=== PATIENT | female | born 1960 | race Caucasian/White ===

== ENCOUNTER → 2016-11-11 | Outpatient (CLI) | payer OTHER ==
[2016-11-11 11:51] LABS: ABSOLUTE BASOPHILS # (AUTO) 0.1 10^3/uL (0.0-0.2); ABSOLUTE EOSINOPHILS # (AUTO) 0.2 10^3/uL (0.0-0.6); ABSOLUTE LYMPHOCYTES (AUTO) 1.3 10^3/uL (0.5-4.7); ABSOLUTE MONOCYTES (AUTO) 0.4 10^3/uL (0.1-1.4); ABSOLUTE NEUT (AUTO) 3.6 10^3/uL (1.7-8.2); EOSINOPHILS % (AUTO) 4.1 % (0-6); HEMATOCRIT 38.8 % (36.0-47.0); HEMOGLOBIN 12.9 g/dL (12.0-15.5); HGB HCT DIFFERENCE -0.1; LYMPHOCYTES % (AUTO) 23.5 % (13-45); MEAN CORPUSCULAR HEMOGLOBIN 30.4 pg (27.0-33.4); MEAN CORPUSCULAR HGB CONC 33.2 g/dL (32.0-36.0); MEAN CORPUSCULAR VOLUME 92 fl (80-97); RED BLOOD COUNT 4.24 10^6/uL (3.72-5.28); RED CELL DISTRIBUTION WIDTH 13.7 % (11.5-14.0); SEGMENTED NEUTROPHILS % (AUTO) 64.4 % (42-78); WHITE BLOOD COUNT 5.6 10^3/uL (4.0-10.5)
[2016-11-11 12:15] LABS: ALANINE AMINOTRANSFERASE 54 U/L (9-52); ALBUMIN 3.6 g/dL (3.5-5.0); ALKALINE PHOSPHATASE 223 U/L (38-126); ANION GAP 12 (5-19); ASPARTATE AMINO TRANSFERASE 41 U/L (14-36); BILIRUBIN,TOTAL 1.1 mg/dL (0.2-1.3); BLOOD UREA NITROGEN 19 mg/dL (7-20); CALCIUM 10.1 mg/dL (8.4-10.2); CARBON DIOXIDE 20 mmol/L (22-30); CHLORIDE 103 mmol/L (98-107); CHOLESTEROL 202.38 mg/dL (0-200); CREATININE RESULT 0.93 mg/dL (0.52-1.25); Direct HDL 46 mg/dL (>40); GLUCOSE 345 mg/dL (75-110); POTASSIUM 4.9 mmol/L (3.6-5.0); SODIUM 134.9 mmol/L (137-145); TRIGLYCERIDES 233 mg/dL (<150)
[2016-11-11 12:19] LABS: VLDL CHOLESTEROL 46.6 mg/dL (10-31)
[2016-11-11 12:26] LABS: DIRECT LDL 108 mg/dL (<100)
== END ==
LOC: CCC 10:54
DX: L97.519 Non-pressure chronic ulcer of other part of right foot with unspecified severity (principal); E11.9 Type 2 diabetes mellitus without complications; I10 Essential (primary) hypertension; E03.9 Hypothyroidism, unspecified
CPT/HCPCS: 36415; 80053; 80061; 83036; 84443; 85025

== ENCOUNTER → 2017-01-10 | Outpatient (CLI) | payer OTHER | LOC: OD 15:10 | DX: E11.621 Type 2 diabetes mellitus with foot ulcer (principal) ==

== ENCOUNTER → 2017-04-12 | Outpatient (CLI) | payer OTHER ==
[2017-04-12 12:19] LABS: ABSOLUTE BASOPHILS # (AUTO) 0.1 10^3/uL (0.0-0.2); ABSOLUTE EOSINOPHILS # (AUTO) 0.2 10^3/uL (0.0-0.6); ABSOLUTE LYMPHOCYTES (AUTO) 1.3 10^3/uL (0.5-4.7); ABSOLUTE MONOCYTES (AUTO) 0.4 10^3/uL (0.1-1.4); ABSOLUTE NEUT (AUTO) 4.1 10^3/uL (1.7-8.2); BASOPHILS % (AUTO) 0.8 % (0-2); EOSINOPHILS % (AUTO) 2.9 % (0-6); HEMATOCRIT 38.8 % (36.0-47.0); HEMOGLOBIN 13.3 g/dL (12.0-15.5); HGB HCT DIFFERENCE 1.1; LYMPHOCYTES % (AUTO) 21.7 % (13-45); MEAN CORPUSCULAR HEMOGLOBIN 31.4 pg (27.0-33.4); MEAN CORPUSCULAR HGB CONC 34.3 g/dL (32.0-36.0); MEAN CORPUSCULAR VOLUME 92 fl (80-97); MONOCYTES % (AUTO) 6.2 % (3-13); RED BLOOD COUNT 4.23 10^6/uL (3.72-5.28); RED CELL DISTRIBUTION WIDTH 13.4 % (11.5-14.0); SEGMENTED NEUTROPHILS % (AUTO) 68.4 % (42-78)
[2017-04-12 12:43] LABS: ALANINE AMINOTRANSFERASE 46 U/L (9-52); ALBUMIN 3.6 g/dL (3.5-5.0); ALKALINE PHOSPHATASE 191 U/L (38-126); ANION GAP 14 (5-19); ASPARTATE AMINO TRANSFERASE 36 U/L (14-36); BILIRUBIN,DIRECT 0.5 mg/dL (0.0-0.4); BLOOD UREA NITROGEN 16 mg/dL (7-20); CALCIUM 9.6 mg/dL (8.4-10.2); CARBON DIOXIDE 17 mmol/L (22-30); CHLORIDE 107 mmol/L (98-107); CREATININE RESULT 1.02 mg/dL (0.52-1.25); GLUCOSE 215 mg/dL (75-110); POTASSIUM 4.4 mmol/L (3.6-5.0); SODIUM 138.1 mmol/L (137-145); TOTAL PROTEIN 7.7 g/dL (6.3-8.2)
[2017-04-13 07:28] LABS: HEPATITIS A AB TOTAL Positive (Negative)
== END ==
LOC: CCC 10:46
DX: E03.9 Hypothyroidism, unspecified (principal); E11.9 Type 2 diabetes mellitus without complications; R79.89 Other specified abnormal findings of blood chemistry
CPT/HCPCS: 36415; 80053; 82977; 83036; 84443; 85025; 86317; 86708; 86709; 87340

== ENCOUNTER → 2017-05-03 | Outpatient (CLI) | payer OTHER ==
--- NOTE | 2017-05-03 11:49 | RADIOLOGY REPORT (SQ) ---
EXAM DESCRIPTION: U/S ABDOMEN COMPLETE W/DOPPLER COMPLETED DATE/TIME: 05/03/2017 11:40 am REASON FOR STUDY: ELEVATED LFT'S R94.5 ABNORMAL RESULTS OF LIVER FUNCTION STUDIES COMPARISON: None. TECHNIQUE: Dynamic and static grayscale images acquired of the abdomen and recorded on PACS. Additio nal selected color Doppler and spectral images recorded. LIMITATIONS: None. FINDINGS: PANCREAS: The visualized portion of the pancreas are unremarkable. LIVER: Echotexture is coarse with increased echogenicity consistent with fatty infiltration. LIVER VASCULATURE: Normal directional flow of the main portal vein and hepatic veins. GALLBLADDER: Surgically absent. ULTRASOUND-DETECTED ERICKSON'S SIGN: Negative. INTRAHEPATIC DUCTS AND COMMON DUCT: Common bile duct measures 8.7 mm in diameter. INFERIOR VENA CAVA: Normal flow. AORTA: No aneurysm. RIGHT KIDNEY: Normal size. Normal echogenicity. No solid or suspicious masses. No hydronephrosis. No calcifications. LEFT KIDNEY: Normal size. Normal echogenicity. No solid or suspicious masses. No hydronephrosis. No calcifications. SPLEEN:Normal size. No solid masses. PERITONEAL AND PLEURAL SPACES: No ascites or effusions. OTHER: No other significant finding. IMPRESSION: Fatty infiltrated liver. Prior cholecystectomy. No acute findings. TECHNICAL DOCUMENTATION: JOB ID: [id number]- All Rights Reserved
== END ==
LOC: RAD 10:51
DX: R94.5 Abnormal results of liver function studies (principal)
CPT/HCPCS: 76700; 93976

== ENCOUNTER → 2017-07-25 | Outpatient (CLI) | payer OTHER ==
[2017-07-25 12:23] LABS: ANION GAP 11 (5-19); BLOOD UREA NITROGEN 16 mg/dL (7-20); CALCIUM 9.9 mg/dL (8.4-10.2); CARBON DIOXIDE 22 mmol/L (22-30); CHLORIDE 103 mmol/L (98-107); CREATININE RESULT 1.04 mg/dL (0.52-1.25); GLUCOSE 375 mg/dL (75-110); POTASSIUM 4.8 mmol/L (3.6-5.0); SODIUM 135.6 mmol/L (137-145)
== END ==
LOC: CCC 10:39
DX: E03.9 Hypothyroidism, unspecified (principal); E10.9 Type 1 diabetes mellitus without complications; I10 Essential (primary) hypertension
CPT/HCPCS: 36415; 80048; 84443

== ENCOUNTER 2017-10-12 07:12 | Day surgery (SDC) | payer OTHER ==
[~2017-10-12 07:12] MED LIST: KETOROLAC TROMETHAMINE 0.45% 4 DROP/0.4 ML DROPERETTE OS PRN
[2017-10-12] MEDS ORDERED: TOBRAMYCIN SULFATE/DEXAMETH OPH OINTMENT 3.5 GM ONE (07:28)
[2017-10-12] MEDS ORDERED: LIDOCAINE 1% INJ-PF (10 MG/ML) 30 ML SDV ONE (07:28)
[2017-10-12] MEDS ORDERED: EPINEPHRINE INJ/PF 1 MG/1 ML AMPULE ONE (07:28)
[2017-10-12] MEDS ORDERED: CHONDR SU A NA/HYALUR INTRAOC KIT (SURGICARE) ONE (07:28)
[2017-10-12] MEDS: TROPICAMIDE 1% OPH SOLN 3 ML OS PRN ×3 (07:53→08:14)
[2017-10-12] MEDS: CYCLOPENTOLATE 0.2%/PHENYLEPHRINE 1% OPH SOLN 2 ML OS PRN ×3 (07:53→08:14)
[2017-10-12] MEDS: BESIFLOXACIN HCL 0.6% OPH SUSP 5 ML BOTTLE OS PRN ×3 (07:54→08:53)
[2017-10-12] MEDS: TETRACAINE HCL 0.5% OPH SOLN 0.6 ML DROPERETTE OS PRN ×3 (07:55→08:26)
[2017-10-12] MEDS ORDERED: MIDAZOLAM 2 MG/2 ML INJ ONE (08:07)
[2017-10-12] MEDS ORDERED: TRYPAN BLUE 0.06 % OPH SOLN 0.5 ML DISP.SYRIN ONE (08:29)
== END 2017-10-12 09:27 | disposition home or self-care (01) ==
LOC: SC 07:12
PROVIDERS: ATTEND Ophthalmology
PROC: 08RK3JZ Replacement of Left Lens with Synthetic Substitute, Percutaneous Approach (ICD-10-PCS; principal; 2017-10-12 08:15)
DX: H25.12 Age-related nuclear cataract, left eye (principal); I10 Essential (primary) hypertension; E03.9 Hypothyroidism, unspecified; E11.9 Type 2 diabetes mellitus without complications; E66.9 Obesity, unspecified; E11.40 Type 2 diabetes mellitus with diabetic neuropathy, unspecified; Z79.84 Long term (current) use of oral hypoglycemic drugs; Z68.42 Body mass index [BMI] 45.0-49.9, adult; Z88.5 Allergy status to narcotic agent; Z85.42 Personal history of malignant neoplasm of other parts of uterus
CPT/HCPCS: 82962; 66984; V2632; J2250; J3490 ×4; J0171; 142

== ENCOUNTER → 2018-02-24 | Outpatient (CLI) | payer OTHER ==
[2018-02-24 13:56] LABS: ALANINE AMINOTRANSFERASE 34 U/L (9-52); ALBUMIN 3.6 g/dL (3.5-5.0); ALKALINE PHOSPHATASE 221 U/L (38-126); ANION GAP 13 (5-19); ASPARTATE AMINO TRANSFERASE 44 U/L (14-36); BILIRUBIN,DIRECT 0.7 mg/dL (0.0-0.4); BILIRUBIN,TOTAL 1.1 mg/dL (0.2-1.3); BLOOD UREA NITROGEN 33 mg/dL (7-20); CALCIUM 9.9 mg/dL (8.4-10.2); CARBON DIOXIDE 20 mmol/L (22-30); CHLORIDE 103 mmol/L (98-107); POTASSIUM 5.2 mmol/L (3.6-5.0); TOTAL PROTEIN 7.3 g/dL (6.3-8.2)
[2018-02-24 14:08] LABS: GLUCOSE 406 mg/dL (75-110)
[2018-02-24 14:12] LABS: FREE T3 3.9 pg/mL (2.77-5.27); FREE T4 (FREE THYROXINE) 1.82 ng/dL (0.78-2.19)
[2018-02-24 14:25] LABS: THYROID STIMULATING HORMONE 2.07 uIU/mL (0.47-4.68)
== END ==
LOC: OD 11:40
DX: E03.9 Hypothyroidism, unspecified (principal)
CPT/HCPCS: 36415; 80053; 84439; 84443; 84481

== ENCOUNTER 2018-07-14 00:10 | Inpatient (IN) | payer OTHER ==
[2018-07-14] MEDS ORDERED: NORMAL SALINE 1000 ML 1,000 ML IV ONE ×2 (00:27→03:33)
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
[2018-07-14 00:52] LABS: ABSOLUTE EOSINOPHILS # (AUTO) 0.1 10^3/uL (0.0-0.6); ABSOLUTE LYMPHOCYTES (AUTO) 0.8 10^3/uL (0.5-4.7); ABSOLUTE MONOCYTES (AUTO) 0.6 10^3/uL (0.1-1.4); ABSOLUTE NEUT (AUTO) 6.5 10^3/uL (1.7-8.2); BASOPHILS % (AUTO) 0.4 % (0-2); EOSINOPHILS % (AUTO) 1.2 % (0-6); HEMATOCRIT 37.4 % (36.0-47.0); HEMOGLOBIN 12.6 g/dL (12.0-15.5); LYMPHOCYTES % (AUTO) 9.9 % (13-45); MEAN CORPUSCULAR HEMOGLOBIN 31.7 pg (27.0-33.4); MEAN CORPUSCULAR HGB CONC 33.7 g/dL (32.0-36.0); MEAN CORPUSCULAR VOLUME 94 fl (80-97); MONOCYTES % (AUTO) 7.2 % (3-13); PLATELET COUNT 177 10^3/uL (150-450); RED BLOOD COUNT 3.98 10^6/uL (3.72-5.28); RED CELL DISTRIBUTION WIDTH 15.1 % (11.5-14.0); SEGMENTED NEUTROPHILS % (AUTO) 81.3 % (42-78); TOTAL CELLS COUNTED % (AUTO) 100 %; VENOUS BLOOD BASE EXCESS -10.7 mmol/L; VENOUS BLOOD HCO3 14.9 mmol/L (20-32); VENOUS BLOOD PCO2 32.9 mmHg (35-63); VENOUS BLOOD PH 7.28 (7.30-7.42)
[2018-07-14 01:51] LABS: ANION GAP 14 (5-19); BLOOD UREA NITROGEN 60 mg/dL (7-20); CARBON DIOXIDE 15 mmol/L (22-30); CHLORIDE 100 mmol/L (98-107); POTASSIUM 5.8 mmol/L (3.6-5.0); SODIUM 128.5 mmol/L (137-145)
--- NOTE | 2018-07-14 01:52 | RADIOLOGY REPORT (SQ) ---
PROCEDURE: CT brain without contrast COMPLETED DATE/TME: 07/14/2018 00:27 CLINICAL HISTORY: 58 years Female Fall Injury COMPARISON: None. TECHNIQUE: Contiguous axial CT images obtained through the brain without IV contrast. This exam was performed according to our department optimization program which includes automated exposure control, adjustment of the mA and/or kv according to patient size and/or use of iterative reconstruction technique. FINDINGS: The ventricles and sulci are prominent consistent with atrophic changes. 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 No mass lesions. No acute hemorrhage. Atherosclerotic calcifications. No fluid or significant mucosal thickening in the visualized paranasal sinuses. No depressed calvarial fractures. IMPRESSION: No acute intracranial abnormality is identified.
[2018-07-14 02:03] LABS: GLUCOSE 660 mg/dL (75-110)
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
[2018-07-14] MEDS ORDERED: INSULIN REG, HUMAN 100 UNIT/ML 3 ML VIAL (PYX) IV ONE (02:10)
[2018-07-14 03:29] LABS: APPEARANCE,URINE SLIGHTLY-CLOUDY; BILIRUBIN,URINE NEGATIVE (NEGATIVE); COLOR,URINE YELLOW; GLUCOSE, URINE >=500 mg/dL (NEGATIVE); KETONES,URINE NEGATIVE (NEGATIVE); LEUKOCYTE ESTERASE,URINE NEGATIVE (NEGATIVE); NITRITE,URINE NEGATIVE (NEGATIVE); PROTEIN,URINE 30 mg/dL (NEGATIVE)
[2018-07-14] MEDS ORDERED: GLUCAGON,HUMAN RECOMB 1 MG INJ IM PRN ×2 (04:13→04:22)
[2018-07-14] MEDS ORDERED: PROMETHAZINE HCL INJ 25 MG/1 ML VIAL IV PRN (04:13)
[2018-07-14] MEDS ORDERED: MAG HYDROX/AL HYDROX/SIMETH SUSP 30 ML UDCUP PO PRN (04:13)
[2018-07-14] MEDS ORDERED: DEXTROSE 40% GEL 15 GM TUBE PO PRN ×6 (04:13→04:22)
[2018-07-14] MEDS ORDERED: GLUCAGON,HUMAN RECOMB 1 MG INJ SUBCUT PRN (04:13)
[2018-07-14] MEDS ORDERED: DEXTROSE 50%-WATER 25 GM/50 ML DISP.SYRIN IV PRN ×6 (04:13→04:22)
[2018-07-14] MEDS ORDERED: PROMETHAZINE HCL 25 MG TABLET PO PRN (04:13)
[2018-07-14] MEDS ORDERED: NORMAL SALINE 1000 ML 1,000 ML IV PRN (04:22)
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
[2018-07-14] MEDS ORDERED: INSULIN REG, HUMAN 100 UNIT/ML 3 ML VIAL (PYX) ONE (05:50)
[2018-07-14] MEDS: HEPARIN SOD (PORCINE) 5,000 UNIT/ML 1 ML SYRINGE SUBCUT SCH ×3 (05:59→21:56)
[2018-07-14] MEDS: NORMAL SALINE 1000 ML 1,000 ML IV PRN ×3 (05:59→23:00)
[2018-07-14] MEDS: NORMAL SALINE 100 ML with INSULIN REGULAR, HUMAN 100 UNIT IV PRN ×6 (06:07→23:00)
[2018-07-14 07:02] LABS: ANION GAP 12 (5-19); BLOOD UREA NITROGEN 55 mg/dL (7-20); CALCIUM 8.7 mg/dL (8.4-10.2); CARBON DIOXIDE 14 mmol/L (22-30); CHLORIDE 104 mmol/L (98-107); SODIUM 130.2 mmol/L (137-145)
[2018-07-14 07:19] LABS: GLUCOSE 559 mg/dL (75-110)
--- NOTE | 2018-07-14 10:24 | EKG REPORT ---
SEVERITY:- ABNORMAL ECG - SINUS RHYTHM KHLOE, CONSIDER BIATRIAL ABNORMALITIES BORDERLINE PROLONGED QT INTERVAL : Confirmed by: Kamala Bhatia MD 14-Jul-2018 10:23:32
[2018-07-14 11:36] LABS: ANION GAP 11 (5-19); BLOOD UREA NITROGEN 52 mg/dL (7-20); CALCIUM 8.6 mg/dL (8.4-10.2); CARBON DIOXIDE 14 mmol/L (22-30); CHLORIDE 105 mmol/L (98-107); POTASSIUM 4.6 mmol/L (3.6-5.0); SODIUM 129.9 mmol/L (137-145)
[2018-07-14 11:53] LABS: GLUCOSE 485 mg/dL (75-110)
[2018-07-14 14:14] LABS: ANION GAP 10 (5-19); BLOOD UREA NITROGEN 51 mg/dL (7-20); CALCIUM 8.9 mg/dL (8.4-10.2); CARBON DIOXIDE 16 mmol/L (22-30); CHLORIDE 106 mmol/L (98-107); POTASSIUM 4.7 mmol/L (3.6-5.0); SODIUM 131.8 mmol/L (137-145)
[2018-07-14 14:34] LABS: GLUCOSE 425 mg/dL (75-110)
[2018-07-14 16:01] LABS: APPEARANCE,URINE CLEAR; BILIRUBIN,URINE NEGATIVE (NEGATIVE); COLOR,URINE YELLOW; GLUCOSE, URINE >=500 mg/dL (NEGATIVE); KETONES,URINE NEGATIVE (NEGATIVE); LEUKOCYTE ESTERASE,URINE NEGATIVE (NEGATIVE); NITRITE,URINE NEGATIVE (NEGATIVE); PROTEIN,URINE NEGATIVE (NEGATIVE); URINE SPECIFIC GRAVITY 1.018; UROBILINOGEN,URINE NEGATIVE mg/dL (<2.0)
[2018-07-14 18:24] LABS: ANION GAP 13 (5-19); BLOOD UREA NITROGEN 47 mg/dL (7-20); CALCIUM 9.1 mg/dL (8.4-10.2); CARBON DIOXIDE 14 mmol/L (22-30); CHLORIDE 109 mmol/L (98-107); GLUCOSE 324 mg/dL (75-110); POTASSIUM 4.7 mmol/L (3.6-5.0); SODIUM 135.6 mmol/L (137-145)
[2018-07-14 22:21] LABS: ANION GAP 11 (5-19); BLOOD UREA NITROGEN 47 mg/dL (7-20); CALCIUM 8.7 mg/dL (8.4-10.2); CARBON DIOXIDE 13 mmol/L (22-30); CHLORIDE 111 mmol/L (98-107); GLUCOSE 232 mg/dL (75-110); POTASSIUM 4.2 mmol/L (3.6-5.0); SODIUM 134.6 mmol/L (137-145)
[2018-07-14] MEDS: DEXTROSE 5%-1/2 NORMAL SALINE 1,000 ML IV PRN (23:10)
[2018-07-15] MEDS: NORMAL SALINE 100 ML with INSULIN REGULAR, HUMAN 100 UNIT IV PRN ×6 (05:43→18:58)
[2018-07-15] MEDS: HEPARIN SOD (PORCINE) 5,000 UNIT/ML 1 ML SYRINGE SUBCUT SCH ×3 (05:43→21:18)
[2018-07-15] MEDS: DEXTROSE 5%-1/2 NORMAL SALINE 1,000 ML IV PRN ×2 (07:36→15:07)
[2018-07-15 13:22] LABS: ANION GAP 7 (5-19); BLOOD UREA NITROGEN 42 mg/dL (7-20); CALCIUM 8.9 mg/dL (8.4-10.2); CARBON DIOXIDE 16 mmol/L (22-30); CHLORIDE 112 mmol/L (98-107); GLUCOSE 102 mg/dL (75-110); PHOSPHORUS 2.9 mg/dL (2.5-4.5); POTASSIUM 3.9 mmol/L (3.6-5.0); SODIUM 135.4 mmol/L (137-145)
[2018-07-15] MEDS: ACETAMINOPHEN 325 MG TABLET PO PRN (15:07)
[2018-07-15] MEDS: LEVOTHYROXINE SODIUM 0.1 MG TABLET PO SCH (15:12)
[2018-07-15] MEDS: MEGESTROL ACETATE 20 MG TABLET PO SCH (15:12)
[2018-07-15] MEDS: GABAPENTIN 300 MG CAPSULE PO SCH ×2 (15:12→21:16)
[2018-07-15 17:49] LABS: ANION GAP 10 (5-19); BLOOD UREA NITROGEN 41 mg/dL (7-20); CALCIUM 8.9 mg/dL (8.4-10.2); CARBON DIOXIDE 14 mmol/L (22-30); CHLORIDE 111 mmol/L (98-107); GLUCOSE 163 mg/dL (75-110); POTASSIUM 4.4 mmol/L (3.6-5.0); SODIUM 135.3 mmol/L (137-145)
[2018-07-15 21:13] LABS: ANION GAP 8 (5-19); BLOOD UREA NITROGEN 41 mg/dL (7-20); CALCIUM 8.8 mg/dL (8.4-10.2); CARBON DIOXIDE 15 mmol/L (22-30); CHLORIDE 111 mmol/L (98-107); GLUCOSE 194 mg/dL (75-110); PHOSPHORUS 2.9 mg/dL (2.5-4.5); POTASSIUM 4.2 mmol/L (3.6-5.0); SODIUM 134.4 mmol/L (137-145)
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
[2018-07-16] MEDS: NORMAL SALINE 100 ML with INSULIN REGULAR, HUMAN 100 UNIT IV PRN ×8 (00:26→21:05)
[2018-07-16 01:15] LABS: ANION GAP 9 (5-19); BLOOD UREA NITROGEN 35 mg/dL (7-20); CALCIUM 8.9 mg/dL (8.4-10.2); CARBON DIOXIDE 14 mmol/L (22-30); CHLORIDE 112 mmol/L (98-107); GLUCOSE 145 mg/dL (75-110); PHOSPHORUS 2.6 mg/dL (2.5-4.5); POTASSIUM 4.2 mmol/L (3.6-5.0); SODIUM 134.7 mmol/L (137-145)
[2018-07-16 06:10] LABS: ANION GAP 7 (5-19); BLOOD UREA NITROGEN 35 mg/dL (7-20); CALCIUM 8.8 mg/dL (8.4-10.2); CARBON DIOXIDE 15 mmol/L (22-30); CHLORIDE 113 mmol/L (98-107); GLUCOSE 110 mg/dL (75-110); PHOSPHORUS 2.6 mg/dL (2.5-4.5); SODIUM 134.7 mmol/L (137-145)
[2018-07-16] MEDS: HEPARIN SOD (PORCINE) 5,000 UNIT/ML 1 ML SYRINGE SUBCUT SCH ×3 (06:50→21:55)
[2018-07-16] MEDS: LEVOTHYROXINE SODIUM 0.1 MG TABLET PO SCH (06:50)
[2018-07-16] MEDS: DEXTROSE 5%-1/2 NORMAL SALINE 1,000 ML IV PRN ×2 (07:21→15:05)
[2018-07-16 10:03] LABS: ANION GAP 6 (5-19); BLOOD UREA NITROGEN 32 mg/dL (7-20); CALCIUM 8.7 mg/dL (8.4-10.2); CARBON DIOXIDE 15 mmol/L (22-30); CHLORIDE 115 mmol/L (98-107); GLUCOSE 101 mg/dL (75-110); PHOSPHORUS 2.5 mg/dL (2.5-4.5); POTASSIUM 4.1 mmol/L (3.6-5.0); SODIUM 135.9 mmol/L (137-145)
[2018-07-16] MEDS: MEGESTROL ACETATE 20 MG TABLET PO SCH (10:05)
[2018-07-16] MEDS: GABAPENTIN 300 MG CAPSULE PO SCH ×2 (10:06→21:53)
[2018-07-16 13:16] LABS: ANION GAP 10 (5-19); BLOOD UREA NITROGEN 30 mg/dL (7-20); CARBON DIOXIDE 12 mmol/L (22-30); CHLORIDE 114 mmol/L (98-107); GLUCOSE 125 mg/dL (75-110); PHOSPHORUS 2.5 mg/dL (2.5-4.5); POTASSIUM 4.2 mmol/L (3.6-5.0); SODIUM 135.6 mmol/L (137-145)
[2018-07-16] MEDS ORDERED: TRAMADOL HCL 50 MG TABLET PO PRN (17:13)
[2018-07-16 17:14] LABS: ANION GAP 7 (5-19); BLOOD UREA NITROGEN 28 mg/dL (7-20); CARBON DIOXIDE 15 mmol/L (22-30); CHLORIDE 116 mmol/L (98-107); GLUCOSE 128 mg/dL (75-110); PHOSPHORUS 2.8 mg/dL (2.5-4.5); POTASSIUM 4.5 mmol/L (3.6-5.0); SODIUM 137.5 mmol/L (137-145)
--- NOTE | 2018-07-16 17:43 | PDOC PROGRESS REPORT ---
Subjective Progress Note for:: 07/16/18 Subjective:: Feels okay except for generalized headache. Endorses good appetite. Reports no BM since [facility], 07/13. Reports she was only able to shuffle side-side with walker during PT eval. Complains her finger tips are very sore d/t the frequent AccuCheks. Reason For Visit: f/u DKA Physical Exam Vital Signs: Temp Pulse Resp BP Pulse Ox 98.2 F 77 20 131/72 H 100 07/16/18 16:07 07/16/18 16:07 07/16/18 16:07 07/16/18 16:07 07/16/18 16:07 Intake & Output 07/15/18 07/16/18 07/17/18 06:59 06:59 06:59 Intake Total 2310 3554 1168 Output Total 830 1125 300 Balance 1480 2429 868 Weight 124.9 kg 126.7 kg Additional comments: General appearance: PRESENT: no acute distress, cooperative, morbidly obese Head exam: PRESENT: other - Alopecia Eye exam: ABSENT: conjunctival injection, scleral icterus Neck exam: PRESENT: other - Obese so that JVP is difficult to assess. ABSENT: JVD, tracheal deviation Respiratory exam: PRESENT: clear to auscultation karla. ABSENT: rales, rhonchi, wheezes Cardiovascular exam: PRESENT: RRR. ABSENT: diastolic murmur, rubs, systolic murmur Pulses: PRESENT: normal radial pulses, normal dorsalis pedis pul Vascular exam: PRESENT: normal capillary refill GI/Abdominal exam: PRESENT: normal bowel sounds, soft. ABSENT: distended, guarding, rigid, tenderness Rectal exam: PRESENT: deferred Extremities exam: PRESENT: calf tenderness, other - Significant fatty deposition of the extremities mimics appearance of edema, but is nonpitting. ABSENT: clubbing, pedal edema Musculoskeletal exam: PRESENT: full ROM, normal inspection. ABSENT: tenderness Neurological exam: PRESENT: alert, awake, oriented to person, oriented to place , oriented to time, oriented to situation. ABSENT: motor sensory deficit Psychiatric exam: PRESENT: appropriate affect, normal mood. ABSENT: homicidal ideation, suicidal ideation Skin exam: PRESENT: dry, intact, warm. ABSENT: cyanosis, rash Results Laboratory Results: 07/16/18 16:35 07/15/18 07/15/18 07/16/18 17:16 20:45 00:23 Sodium 135.3 L 134.4 L 134.7 L Potassium 4.4 4.2 4.2 Chloride 111 H 111 H 112 H Carbon Dioxide 14 L 15 L 14 L Anion Gap 10 8 9 BUN 41 H 41 H 35 H Creatinine 1.35 H 1.34 H 1.19 Est GFR ( Amer) 48 L 49 L 56 L Est GFR (Non-Af Amer) 40 L 40 L 46 L Glucose 163 H 194 H 145 H Calcium 8.9 8.8 8.9 Phosphorus 3.0 2.9 2.6 Magnesium 2.0 2.0 1.9 07/16/18 07/16/18 07/16/18 04:47 08:56 12:40 Sodium 134.7 L 135.9 L 135.6 L Potassium 4.0 4.1 4.2 Chloride 113 H 115 H 114 H Carbon Dioxide 15 L 15 L 12 L Anion Gap 7 6 10 BUN 35 H 32 H 30 H Creatinine 1.14 1.04 0.96 Est GFR ( Amer) 59 L > 60 > 60 Est GFR (Non-Af Amer) 49 L 54 L 59 L Glucose 110 101 125 H Calcium 8.8 8.7 9.0 Phosphorus 2.6 2.5 2.5 Magnesium 2.0 2.0 1.9 07/16/18 16:35 Sodium 137.5 Potassium 4.5 Chloride 116 H Carbon Dioxide 15 L Anion Gap 7 BUN 28 H Creatinine 1.08 Est GFR ( Amer) > 60 Est GFR (Non-Af Amer) 52 L Glucose 128 H Calcium 9.0 Phosphorus 2.8 Magnesium 2.0 07/15/18 12:40 Troponin I < 0.012 Impressions: Chest X-Ray 07/14/18 00:27 IMPRESSION: No evidence of acute intrathoracic disease. Head CT 07/14/18 00:27 IMPRESSION: No acute intracranial abnormality is identified. Assessment & Plan - Diagnosis (1) Pseudohyponatremia Is this a current diagnosis for this admission?: Yes Plan: Resolved with resolution of hyperglycemia (2) Hyperkalemia, diminished renal excretion Is this a current diagnosis for this admission?: Yes Plan: Resolved with insulin therapy and IV fluids (3) Non-compliance Is this a current diagnosis for this admission?: Yes Plan: Encourage patient to pursue diabetic education and compliance with diet and diabetic management including monitoring Accu-Cheks and keeping a diary to present to PCP, so meds can be adjusted. Follow-up closely with PCP for standard of care for type 2 diabetes (4) Acute kidney injury superimposed on CKD Is this a current diagnosis for this admission?: Yes Plan: Improving rapidly daily with Cr now WNR 0.96 Adjust IV fluid (5) DKA, type 2 Qualifiers: Diabetes mellitus group home insulin use: without long chain beamer use Diabetes mellitus complication detail: without coma Qualified Code(s): E11.10 - Type 2 diabetes mellitus with ketoacidosis without coma Is this a current diagnosis for this admission?: Yes Plan: Patient was recently started on Lantus 25 units nightly by PCP, to try to improve glycemiic control inadequate on Glyburide/Metformin Patient encouraged to perform pre-meal and bedtime Accu-Cheks upon discharge until instructed differently by PCP Patient encouraged to keep a diary of Accu-Chek results for PCP review Diabetic education as an inpatient, but probably more important in the outpatient/community setting Have been continuing insulin drip even though Accu-Cheks have normalized because serum bicarbonate was low. The anion gap closed yest, but serum bicarb stubbornly ranges 15-12. DC D5 1/2 NS and begin D5W with 3 amps HCO3 Recheck serum bicarb in am Once serum bicarb is greater than or equal to 19, discontinue insulin drip and resume Lantus at bedtime and NovoLog sliding scale based on total daily dose of insulin required by calculation. (6) Diabetes mellitus type 2 in obese Is this a current diagnosis for this admission?: Yes Plan: Patient was recently started on Lantus 25 units nightly by PCP, to try to improve glycemiic control inadequate on Glyburide/Metformin Patient encouraged to perform pre-meal and bedtime Accu-Cheks upon discharge until instructed differently by PCP Patient encouraged to keep a diary of Accu-Chek results for PCP review Diabetic education as an inpatient, but probably more important in the outpatient/community setting, although the patient says shes had a lot of education but remains noncompliant Long discussion held re: consequences of poor diabetic control, some of which she admits she already had --catarracts, retinopathy, neuropathy. (7) Hypertension Qualifiers: Hypertension type: unspecified Qualified Code(s): I10 - Essential (primary ) hypertension Is this a current diagnosis for this admission?: Yes Plan: Continue lisinopril since Cr has normalized and it is appropriate for her diabetes, renal protection - Time Time Spent with patient: 35 or more minutes Medications reviewed and adjusted accordingly: Yes Anticipated discharge: Home Within: within 24 hours
[2018-07-16] MEDS ORDERED: SODIUM BICARBONATE 8.4% INJ 50 MEQ/50 ML DISP.SYRIN ONE ×2 (17:58→18:07)
[2018-07-16] MEDS: OXYCODONE-ACETAMINOPHEN 5-325 MG TABLET PO PRN (18:21)
[2018-07-16] MEDS: DEXTROSE 5%-WATER 1000 ML 1,000 ML with SODIUM BICARBONATE 150 MEQ IV PRN ×2 (18:22)
[2018-07-16] MEDS: ACETAMINOPHEN 325 MG TABLET PO PRN (21:53)
[2018-07-17] MEDS ORDERED: SODIUM BICARBONATE 8.4% INJ 50 MEQ/50 ML DISP.SYRIN ONE ×2 (02:07→02:38)
[2018-07-17] MEDS: OXYCODONE-ACETAMINOPHEN 5-325 MG TABLET PO PRN (02:23)
[2018-07-17] MEDS: DEXTROSE 5%-WATER 1000 ML 1,000 ML with SODIUM BICARBONATE 150 MEQ IV PRN ×4 (02:24→02:49)
[2018-07-17] MEDS: NORMAL SALINE 100 ML with INSULIN REGULAR, HUMAN 100 UNIT IV PRN ×2 (04:29)
[2018-07-17] MEDS: LEVOTHYROXINE SODIUM 0.1 MG TABLET PO SCH (05:36)
[2018-07-17] MEDS: HEPARIN SOD (PORCINE) 5,000 UNIT/ML 1 ML SYRINGE SUBCUT SCH ×3 (05:37→21:53)
[2018-07-17] MEDS: GABAPENTIN 300 MG CAPSULE PO SCH ×2 (09:08→21:52)
[2018-07-17] MEDS: MEGESTROL ACETATE 20 MG TABLET PO SCH (09:08)
[2018-07-17] MEDS ORDERED: INSULIN GLARGINE,HUM.REC.ANLOG 300 UNIT/3 ML INSULN.PEN SUBCUT SCH (10:00)
[2018-07-17] MEDS ORDERED: INSULIN GLARGINE,HUM.REC.ANLOG 1,000 UNIT/10 ML UNIT SUBCUT SCH (11:00)
[2018-07-17] MEDS: INSULIN GLARGINE,HUM.REC.ANLOG 1,000 UNIT/10 ML UNIT SUBCUT SCH ×2 (11:56→21:53)
[2018-07-17] MEDS: METFORMIN HCL 500 MG TABLET PO SCH ×2 (11:56→17:22)
[2018-07-17] MEDS ORDERED: ONDANSETRON HCL INJ/PF 4 MG/2 ML SDV ONE (12:52)
[2018-07-17] MEDS: INSULIN LISPRO 100 UNIT/ML 3 ML VIAL SUBCUT PRN ×3 (13:58→21:53)
[2018-07-17] MEDS: INSULIN LISPRO 100 UNIT/ML 3 ML VIAL SUBCUT SCH ×2 (13:59→18:17)
--- NOTE | 2018-07-17 23:54 | PDOC PROGRESS REPORT ---
Subjective Progress Note for:: 07/17/18 Subjective:: Feels okay except for generalized headache. Endorses good appetite. Reports no BM since [facility], 07/13. Reports she was only able to shuffle side-side with walker during PT eval. Complains her finger tips are very sore d/t the frequent AccuCheks. Reason For Visit: DKA, noncompliance Physical Exam Vital Signs: Temp Pulse Resp BP Pulse Ox 98.2 F 83 22 H 118/52 L 100 07/17/18 20:01 07/17/18 20:01 07/17/18 20:01 07/17/18 20:01 07/17/18 20:01 Intake & Output 07/16/18 07/17/18 07/18/18 06:59 06:59 06:59 Intake Total 3554 3403 740 Output Total 1125 1600 900 Balance 2429 1803 -160 Weight 126.7 kg 131.2 kg Additional comments: General appearance: PRESENT: no acute distress, cooperative, morbidly obese Head exam: PRESENT: other - Alopecia Eye exam: ABSENT: conjunctival injection, scleral icterus Neck exam: PRESENT: other - Obese so that JVP is difficult to assess. ABSENT: JVD, tracheal deviation Respiratory exam: PRESENT: clear to auscultation karla. ABSENT: rales, rhonchi, wheezes Cardiovascular exam: PRESENT: RRR. ABSENT: diastolic murmur, rubs, systolic murmur Pulses: PRESENT: normal radial pulses, normal dorsalis pedis pul Vascular exam: PRESENT: normal capillary refill GI/Abdominal exam: PRESENT: normal bowel sounds, soft. ABSENT: distended, guarding, rigid, tenderness Rectal exam: PRESENT: deferred Extremities exam: PRESENT: calf tenderness, other - Significant fatty deposition of the extremities mimics appearance of edema, but is nonpitting. ABSENT: clubbing, pedal edema Musculoskeletal exam: PRESENT: full ROM, normal inspection. ABSENT: tenderness Neurological exam: PRESENT: alert, awake, oriented to person, oriented to place , oriented to time, oriented to situation. ABSENT: motor sensory deficit Psychiatric exam: PRESENT: appropriate affect, normal mood. ABSENT: homicidal ideation, suicidal ideation Skin exam: PRESENT: dry, intact, warm. ABSENT: cyanosis, rash Results Laboratory Results: 07/16/18 16:35 07/15/18 12:40 Troponin I < 0.012 Impressions: Chest X-Ray 07/14/18 00:27 IMPRESSION: No evidence of acute intrathoracic disease. Head CT 07/14/18 00:27 IMPRESSION: No acute intracranial abnormality is identified. Assessment & Plan - Diagnosis (1) DKA, type 2 Qualifiers: Diabetes mellitus termite treater helper insulin use: without termite treater helper use Diabetes mellitus complication detail: without coma Qualified Code(s): E11.10 - Type 2 diabetes mellitus with ketoacidosis without coma Is this a current diagnosis for this admission?: Yes Plan: Have been continuing insulin drip even though Accu-Cheks have normalized because serum bicarbonate is persistently low. The anion gap closed yest, but serum bicarb stubbornly ranges 15-12. DC D5 1/2 NS and begin D5W with 3 amps HCO3 Recheck serum bicarb in am Once serum bicarb is greater than or equal to 19, discontinue insulin drip and resume Lantus at bedtime and NovoLog sliding scale based on total daily dose of insulin required by calculation. (2) Acute kidney injury superimposed on CKD Is this a current diagnosis for this admission?: Yes Plan: Resolved with IV fluid resuscitation (3) Hyperkalemia, diminished renal excretion Is this a current diagnosis for this admission?: Yes Plan: Resolved with insulin therapy and IV fluids (4) Pseudohyponatremia Is this a current diagnosis for this admission?: Yes Plan: Resolved with resolution of hyperglycemia (5) Non-compliance Is this a current diagnosis for this admission?: Yes Plan: Encourage patient to pursue diabetic education and compliance with diet and diabetic management including monitoring Accu-Cheks and keeping a diary to present to PCP, so meds can be adjusted. Follow-up closely with PCP for standard of care for type 2 diabetes (6) Diabetes mellitus type 2 in obese Is this a current diagnosis for this admission?: Yes Plan: Patient was recently started on Lantus 25 units nightly by PCP, to try to improve glycemiic control inadequate on Glyburide/Metformin Patient encouraged to perform pre-meal and bedtime Accu-Cheks upon discharge until instructed differently by PCP Patient encouraged to keep a diary of Accu-Chek results for PCP review Diabetic education as an inpatient, but probably more important in the outpatient/community setting, although the patient says shes had a lot of education but remains noncompliant Long discussion held re: consequences of poor diabetic control, some of which she admits she already had --catarracts, retinopathy, neuropathy. (7) Hypertension Qualifiers: Hypertension type: unspecified Qualified Code(s): I10 - Essential (primary ) hypertension Is this a current diagnosis for this admission?: Yes Plan: Continue lisinopril since Cr has normalized and it is also appropriate for her diabetes, renal protection (8) Generalized weakness Is this a current diagnosis for this admission?: Yes Plan: Physical therapy evaluation and treatment - Time Time Spent with patient: 35 or more minutes Anticipated discharge: Home Within: within 48 hours
[2018-07-18] MEDS: ACETAMINOPHEN 325 MG TABLET PO PRN ×2 (03:03→19:49)
[2018-07-18] MEDS: HEPARIN SOD (PORCINE) 5,000 UNIT/ML 1 ML SYRINGE SUBCUT SCH ×3 (05:33→21:37)
[2018-07-18] MEDS: LEVOTHYROXINE SODIUM 0.1 MG TABLET PO SCH (05:37)
[2018-07-18 05:39] LABS: ANION GAP 8 (5-19); BLOOD UREA NITROGEN 21 mg/dL (7-20); CARBON DIOXIDE 19 mmol/L (22-30); CHLORIDE 111 mmol/L (98-107); GLUCOSE 175 mg/dL (75-110); POTASSIUM 4.9 mmol/L (3.6-5.0); SODIUM 137.6 mmol/L (137-145)
[2018-07-18] MEDS: MEGESTROL ACETATE 20 MG TABLET PO SCH (09:22)
[2018-07-18] MEDS: GABAPENTIN 300 MG CAPSULE PO SCH ×2 (09:26→21:40)
[2018-07-18] MEDS: METFORMIN HCL 500 MG TABLET PO SCH ×2 (09:26→17:30)
[2018-07-18] MEDS: INSULIN LISPRO 100 UNIT/ML 3 ML VIAL SUBCUT SCH ×3 (09:26→17:31)
[2018-07-18] MEDS: INSULIN GLARGINE,HUM.REC.ANLOG 1,000 UNIT/10 ML UNIT SUBCUT SCH ×3 (09:28→21:38)
--- NOTE | 2018-07-18 17:19 | PDOC PROGRESS REPORT ---
Subjective Progress Note for:: 07/18/18 Subjective:: Patient states that she feels better although feels weak. She is unable to ambulate much. She was seen by physical therapy and rehab has been suggested Reason For Visit: EARLY DKA Physical Exam Vital Signs: Temp Pulse Resp BP Pulse Ox 98.4 F 79 16 151/87 H 100 07/18/18 15:19 07/18/18 15:19 07/18/18 15:19 07/18/18 15:19 07/18/18 15:19 Intake & Output 07/17/18 07/18/18 07/19/18 06:59 06:59 06:59 Intake Total 3403 740 25 Output Total 1600 1525 100 Balance 1803 -785 -75 Weight 131.2 kg 132.1 kg General appearance: PRESENT: no acute distress, morbidly obese, well-developed, well-nourished Head exam: PRESENT: atraumatic, normocephalic Eye exam: PRESENT: conjunctiva pink, EOMI, PERRLA. ABSENT: scleral icterus Ear exam: PRESENT: normal external ear exam Mouth exam: PRESENT: moist, tongue midline Neck exam: ABSENT: carotid bruit, JVD, lymphadenopathy, thyromegaly Respiratory exam: PRESENT: clear to auscultation karla. ABSENT: rales, rhonchi, wheezes Cardiovascular exam: PRESENT: RRR. ABSENT: diastolic murmur, rubs, systolic murmur Pulses: PRESENT: normal dorsalis pedis pul Vascular exam: PRESENT: normal capillary refill GI/Abdominal exam: PRESENT: normal bowel sounds, soft. ABSENT: distended, guarding, mass, organolmegaly, rebound, tenderness Rectal exam: PRESENT: deferred Extremities exam: PRESENT: full ROM. ABSENT: calf tenderness, clubbing, pedal edema Neurological exam: PRESENT: alert, awake, oriented to person, oriented to place , oriented to time, oriented to situation, CN II-XII grossly intact. ABSENT: motor sensory deficit Psychiatric exam: PRESENT: appropriate affect, normal mood. ABSENT: homicidal ideation, suicidal ideation Skin exam: PRESENT: dry, intact, rash - Hyperpigmented rash on lower extremity, warm. ABSENT: cyanosis Results Laboratory Results: 07/18/18 04:55 07/18/18 04:55 Sodium 137.6 Potassium 4.9 Chloride 111 H Carbon Dioxide 19 L Anion Gap 8 BUN 21 H Creatinine 0.84 Est GFR ( Amer) > 60 Est GFR (Non-Af Amer) > 60 Glucose 175 H Calcium 9.0 07/15/18 12:40 Troponin I < 0.012 Impressions: Chest X-Ray 07/14/18 00:27 IMPRESSION: No evidence of acute intrathoracic disease. Head CT 07/14/18 00:27 IMPRESSION: No acute intracranial abnormality is identified. Assessment & Plan - Time Time Spent with patient: 15-24 minutes Medications reviewed and adjusted accordingly: Yes Anticipated discharge: Acute Rehab Within: within 48 hours - Plan Summary Plan Summary: Type II DKA. Patient is currently off insulin drip. Her blood sugar is in the low 100s. We will continue to adjust insulin for optimal blood pressure sugar control. 2. Acute kidney injury superimposed on CKD likely secondary to diabetic nephropathy stage III likely due to dehydration. Resolved 3. Hyperkalemia secondary to insulin deficiency resolved 4. Pseudohyponatremia secondary to hyperglycemia resolved 5. Medical noncompliance patient has been encouraged and advised on the need for compliance 6. Type 2 diabetes mellitus in a noncompliant patient. We will continue to legal counsel and adjust insulin as well as oral hypoglycemic agent 7. Hypertension currently on lisinopril 8. Generalized weakness patient has been seen by physical therapy and they suggest rehab placement 9. Disposition will be to acute rehab once patient is medically stable
[2018-07-19] MEDS: HEPARIN SOD (PORCINE) 5,000 UNIT/ML 1 ML SYRINGE SUBCUT SCH ×3 (05:45→22:18)
[2018-07-19] MEDS: LEVOTHYROXINE SODIUM 0.1 MG TABLET PO SCH (05:53)
[2018-07-19] MEDS: INSULIN LISPRO 100 UNIT/ML 3 ML VIAL SUBCUT SCH (10:28)
[2018-07-19] MEDS: INSULIN GLARGINE,HUM.REC.ANLOG 1,000 UNIT/10 ML UNIT SUBCUT SCH (10:39)
[2018-07-19] MEDS: METFORMIN HCL 500 MG TABLET PO SCH ×2 (10:40→17:05)
[2018-07-19] MEDS: GABAPENTIN 300 MG CAPSULE PO SCH ×2 (10:40→21:46)
[2018-07-19] MEDS: MEGESTROL ACETATE 20 MG TABLET PO SCH (10:41)
[2018-07-19] MEDS ORDERED: INSULIN GLARGINE,HUM.REC.ANLOG 1,000 UNIT/10 ML UNIT SUBCUT ONE (11:15)
--- NOTE | 2018-07-19 13:27 | PDOC PROGRESS REPORT ---
Subjective Progress Note for:: 07/19/18 Subjective:: Patient states that she feels better although feels weak. She is unable to ambulate much. Patient now wants to go home and wants to go home today. She says she has not really been able to ambulate much while in hospital however physical therapy says she is weak and unable to do much even walk to the door. Her blood sugar was noted to be borderline hypoglycemic in the low 100s and even less and as such I have decreased her insulin both long-acting and short acting. I have explained to her that insulin needs to be adjusted and blood sugar needs to be acceptable before she can be discharged. It appears that she will be going home as rehab is not a possibility due to insurance issues Reason For Visit: EARLY DKA Physical Exam Vital Signs: Temp Pulse Resp BP Pulse Ox 98.6 F 57 L 16 138/61 H 99 07/19/18 12:00 07/19/18 12:00 07/19/18 12:00 07/19/18 12:00 07/19/18 12:00 Intake & Output 07/18/18 07/19/18 07/20/18 06:59 06:59 06:59 Intake Total 740 325 237 Output Total 1525 1340 725 [facility] -785 -1015 -488 Weight 132.1 kg 130.7 kg General appearance: PRESENT: no acute distress, morbidly obese, well-developed, well-nourished Head exam: PRESENT: atraumatic, normocephalic Eye exam: PRESENT: conjunctiva pink, EOMI, PERRLA. ABSENT: scleral icterus Ear exam: PRESENT: normal external ear exam Mouth exam: PRESENT: moist, tongue midline Neck exam: ABSENT: carotid bruit, JVD, lymphadenopathy, thyromegaly Respiratory exam: PRESENT: clear to auscultation karla. ABSENT: rales, rhonchi, wheezes Cardiovascular exam: PRESENT: RRR. ABSENT: diastolic murmur, rubs, systolic murmur Pulses: PRESENT: normal dorsalis pedis pul Vascular exam: PRESENT: normal capillary refill GI/Abdominal exam: PRESENT: normal bowel sounds, soft. ABSENT: distended, guarding, mass, organolmegaly, rebound, tenderness Rectal exam: PRESENT: deferred Extremities exam: PRESENT: full ROM. ABSENT: calf tenderness, clubbing, pedal edema Neurological exam: PRESENT: alert, awake, oriented to person, oriented to place , oriented to time, oriented to situation, CN II-XII grossly intact. ABSENT: motor sensory deficit Psychiatric exam: PRESENT: appropriate affect, normal mood. ABSENT: homicidal ideation, suicidal ideation Skin exam: PRESENT: dry, intact, rash, warm. ABSENT: cyanosis Results Laboratory Results: 07/18/18 04:55 07/15/18 12:40 Troponin I < 0.012 Impressions: Chest X-Ray 07/14/18 00:27 IMPRESSION: No evidence of acute intrathoracic disease. Head CT 07/14/18 00:27 IMPRESSION: No acute intracranial abnormality is identified. Assessment & Plan - Time Time Spent with patient: 25-34 minutes Medications reviewed and adjusted accordingly: Yes Anticipated discharge: Home Within: within 48 hours - Inpatient Certification Based on my medical assessment, after consideration of the patient's comorbidities, presenting symptoms, or acuity I expect that the services needed warrant INPATIENT care.: Yes Medical Necessity: Significant Comorbidiites Make Outpatient Treatment Too Risky , Need For IV Fluids, Risk of Complication if Not Cared For in Hospital - Plan Summary Plan Summary: 1.Type II DKA. We will continue to adjust insulin for optimal blood sugar control. 2. Acute kidney injury superimposed on CKD likely secondary to diabetic nephropathy stage III likely due to dehydration. Resolved 3. Hyperkalemia secondary to insulin deficiency resolved 4. Pseudohyponatremia secondary to hyperglycemia resolved 5. Medical noncompliance patient has been encouraged and advised on the need for compliance 6. Type 2 diabetes mellitus in a noncompliant patient. We will continue to sexual abuse counsellor and adjust insulin as well as oral hypoglycemic agent 7. Hypertension currently on lisinopril 8. Generalized weakness patient has been seen by physical therapy and they suggest rehab placement 9. Disposition will be home once medically stable 10. Morbid Obesity with BMI 49.5= patient needs to lose weight
[2018-07-19] MEDS ORDERED: INSULIN LISPRO 100 UNIT/ML 3 ML VIAL SUBCUT SCH (18:00)
[2018-07-19] MEDS ORDERED: INSULIN GLARGINE,HUM.REC.ANLOG 1,000 UNIT/10 ML UNIT SUBCUT SCH (22:00)
[2018-07-20 04:40] LABS: ABSOLUTE EOSINOPHILS # (AUTO) 0.1 10^3/uL (0.0-0.6); ABSOLUTE LYMPHOCYTES (AUTO) 1.2 10^3/uL (0.5-4.7); ABSOLUTE MONOCYTES (AUTO) 0.5 10^3/uL (0.1-1.4); ABSOLUTE NEUT (AUTO) 3.5 10^3/uL (1.7-8.2); BASOPHILS % (AUTO) 0.8 % (0-2); EOSINOPHILS % (AUTO) 2.2 % (0-6); HEMATOCRIT 33.4 % (36.0-47.0); HEMOGLOBIN 11.7 g/dL (12.0-15.5); LYMPHOCYTES % (AUTO) 22.1 % (13-45); MEAN CORPUSCULAR HEMOGLOBIN 31.8 pg (27.0-33.4); MEAN CORPUSCULAR VOLUME 91 fl (80-97); MONOCYTES % (AUTO) 9.5 % (3-13); PLATELET COUNT 147 10^3/uL (150-450); RED BLOOD COUNT 3.68 10^6/uL (3.72-5.28); RED CELL DISTRIBUTION WIDTH 15.3 % (11.5-14.0); SEGMENTED NEUTROPHILS % (AUTO) 65.4 % (42-78); TOTAL CELLS COUNTED % (AUTO) 100 %; WHITE BLOOD COUNT 5.3 10^3/uL (4.0-10.5)
[2018-07-20 04:57] LABS: ANION GAP 8 (5-19); BLOOD UREA NITROGEN 23 mg/dL (7-20); CARBON DIOXIDE 21 mmol/L (22-30); CHLORIDE 109 mmol/L (98-107); GLUCOSE 129 mg/dL (75-110); POTASSIUM 4.8 mmol/L (3.6-5.0); SODIUM 137.8 mmol/L (137-145)
[2018-07-20] MEDS: HEPARIN SOD (PORCINE) 5,000 UNIT/ML 1 ML SYRINGE SUBCUT SCH ×3 (05:07→21:44)
[2018-07-20] MEDS: LEVOTHYROXINE SODIUM 0.1 MG TABLET PO SCH (05:47)
[2018-07-20] MEDS ORDERED: PROMETHAZINE HCL INJ 25 MG/1 ML VIAL IV PRN (08:30)
[2018-07-20] MEDS: INSULIN LISPRO 100 UNIT/ML 3 ML VIAL SUBCUT SCH ×2 (08:41→14:05)
[2018-07-20] MEDS: METFORMIN HCL 500 MG TABLET PO SCH ×2 (08:41→17:18)
[2018-07-20] MEDS: INSULIN GLARGINE,HUM.REC.ANLOG 1,000 UNIT/10 ML UNIT SUBCUT SCH ×2 (10:05→21:49)
[2018-07-20] MEDS: GABAPENTIN 300 MG CAPSULE PO SCH ×2 (10:06→21:49)
[2018-07-20] MEDS: MEGESTROL ACETATE 20 MG TABLET PO SCH (10:06)
--- NOTE | 2018-07-20 16:51 | PDOC PROGRESS REPORT ---
Subjective Progress Note for:: 07/20/18 Subjective:: Patient states that she feels better although feels weak. She is unable to ambulate much. Patient now wants to go home and wants to go home today. She says she has not really been able to ambulate much while in hospital however physical therapy says she is weak and unable to do much even walk to the door. Her blood sugar was noted to be borderline hypoglycemic in the low 100s and even less and as such I have decreased her insulin both long-acting and short acting. I have explained to her that insulin needs to be adjusted and blood sugar needs to be acceptable before she can be discharged. Discharge planning is working on disposition is to be pretty unsafe for patient to go home in this condition. She lives with elderly mother who is clearly unable to take care of her at this time. Reason For Visit: EARLY DKA Physical Exam Vital Signs: Temp Pulse Resp BP Pulse Ox 98.2 F 72 16 147/93 H 100 07/20/18 15:35 07/20/18 15:35 07/20/18 15:35 07/20/18 15:35 07/20/18 15:35 Intake & Output 07/19/18 07/20/18 07/21/18 06:59 06:59 06:59 Intake Total 325 337 236 Output Total 1340 1800 300 Balance -1015 -1463 -64 Weight 130.7 kg 130.1 kg General appearance: PRESENT: no acute distress, morbidly obese, well-developed, well-nourished Head exam: PRESENT: atraumatic, normocephalic Eye exam: PRESENT: conjunctiva pink, EOMI, PERRLA. ABSENT: scleral icterus Ear exam: PRESENT: normal external ear exam Mouth exam: PRESENT: moist, tongue midline Neck exam: ABSENT: carotid bruit, JVD, lymphadenopathy, thyromegaly Respiratory exam: PRESENT: clear to auscultation karla. ABSENT: rales, rhonchi, wheezes Cardiovascular exam: PRESENT: RRR. ABSENT: diastolic murmur, rubs, systolic murmur Pulses: PRESENT: normal dorsalis pedis pul Vascular exam: PRESENT: normal capillary refill GI/Abdominal exam: PRESENT: normal bowel sounds, soft. ABSENT: distended, guarding, mass, organolmegaly, rebound, tenderness Rectal exam: PRESENT: deferred Extremities exam: PRESENT: full ROM. ABSENT: calf tenderness, clubbing, pedal edema Neurological exam: PRESENT: alert, awake, oriented to person, oriented to place , oriented to time, oriented to situation, CN II-XII grossly intact. ABSENT: motor sensory deficit Psychiatric exam: PRESENT: appropriate affect, normal mood. ABSENT: homicidal ideation, suicidal ideation Skin exam: PRESENT: dry, intact, rash, warm. ABSENT: cyanosis Results Laboratory Results: 07/20/18 03:54 07/20/18 03:54 07/20/18 07/20/18 03:54 03:54 WBC 5.3 RBC 3.68 L Hgb 11.7 L Hct 33.4 L MCV 91 MCH 31.8 MCHC 35.0 RDW 15.3 H Plt Count 147 L Seg Neutrophils % 65.4 Lymphocytes % 22.1 Monocytes % 9.5 Eosinophils % 2.2 Basophils % 0.8 Absolute Neutrophils 3.5 Absolute Lymphocytes 1.2 Absolute Monocytes 0.5 Absolute Eosinophils 0.1 Absolute Basophils 0.0 Sodium 137.8 Potassium 4.8 Chloride 109 H Carbon Dioxide 21 L Anion Gap 8 BUN 23 H Creatinine 0.86 Est GFR ( Amer) > 60 Est GFR (Non-Af Amer) > 60 Glucose 129 H Calcium 9.0 07/15/18 12:40 Troponin I < 0.012 Impressions: Chest X-Ray 07/14/18 00:27 IMPRESSION: No evidence of acute intrathoracic disease. Head CT 07/14/18 00:27 IMPRESSION: No acute intracranial abnormality is identified. Assessment & Plan - Time Time Spent with patient: 15-24 minutes Medications reviewed and adjusted accordingly: Yes Anticipated discharge: Acute Rehab Within: within 48 hours - Plan Summary Plan Summary: 1.Type II DM, s/p DKA. We will continue to adjust insulin for optimal blood sugar control. I discontinued her short acting insulin today and I have continue to decrease long-acting insulin as patient remains borderline hypoglycemic. 2. Acute kidney injury superimposed on CKD likely secondary to diabetic nephropathy stage III likely due to dehydration. Resolved 3. Hyperkalemia secondary to insulin deficiency resolved 4. Pseudohyponatremia secondary to hyperglycemia resolved 5. Medical noncompliance patient has been encouraged and advised on the need for compliance 6. Type 2 diabetes mellitus in a noncompliant patient. We will continue to counselor dormitory and adjust insulin as well as oral hypoglycemic agent as needed 7. Hypertension currently on lisinopril 8. Generalized weakness patient has been seen by physical therapy and they suggest rehab placement 9. Disposition will be likely rehab once medically stable however will suggest follow-up with discharge plan 10. Morbid Obesity with BMI 49.5= patient needs to lose weight
[2018-07-21] MEDS: HEPARIN SOD (PORCINE) 5,000 UNIT/ML 1 ML SYRINGE SUBCUT SCH ×3 (05:30→22:04)
[2018-07-21] MEDS: LEVOTHYROXINE SODIUM 0.1 MG TABLET PO SCH (05:32)
[2018-07-21] MEDS: MEGESTROL ACETATE 20 MG TABLET PO SCH (10:21)
[2018-07-21] MEDS: GABAPENTIN 300 MG CAPSULE PO SCH ×2 (10:21→21:52)
[2018-07-21] MEDS: METFORMIN HCL 500 MG TABLET PO SCH ×2 (10:21→16:50)
[2018-07-21] MEDS: INSULIN GLARGINE,HUM.REC.ANLOG 1,000 UNIT/10 ML UNIT SUBCUT SCH ×2 (10:21→21:53)
--- NOTE | 2018-07-21 12:26 | PDOC PROGRESS REPORT ---
Subjective Progress Note for:: 07/21/18 Subjective:: Patient is feeling weak but lacks motivation to get out of bed Her blood glucose is controlled with current management She has no insurance and will not qualify for transfer to rehabilitation Reason For Visit: EARLY DKA Physical Exam Vital Signs: Temp Pulse Resp BP Pulse Ox 98.4 F 72 17 150/88 H 100 07/21/18 08:00 07/21/18 08:00 07/21/18 08:00 07/21/18 08:00 07/21/18 08:00 Intake & Output 07/20/18 07/21/18 07/22/18 06:59 06:59 06:59 Intake Total 337 1123 Output Total 1800 1999 Balance -3575 -119 Weight 286 lb 13.142 oz 281 lb 8.485 oz General appearance: PRESENT: no acute distress, obese Head exam: PRESENT: atraumatic, normocephalic Eye exam: PRESENT: conjunctiva pink, EOMI, PERRLA. ABSENT: scleral icterus Ear exam: PRESENT: normal external ear exam Mouth exam: PRESENT: moist, tongue midline Neck exam: ABSENT: carotid bruit, JVD, lymphadenopathy, thyromegaly Respiratory exam: PRESENT: clear to auscultation karla. ABSENT: rales, rhonchi, wheezes Cardiovascular exam: PRESENT: RRR. ABSENT: diastolic murmur, rubs, systolic murmur Pulses: PRESENT: normal dorsalis pedis pul Vascular exam: PRESENT: normal capillary refill GI/Abdominal exam: PRESENT: normal bowel sounds, soft. ABSENT: distended, guarding, mass, organolmegaly, rebound, tenderness Rectal exam: PRESENT: deferred Extremities exam: PRESENT: full ROM. ABSENT: calf tenderness, clubbing, pedal edema Neurological exam: PRESENT: alert, awake, oriented to person, oriented to place , oriented to time, oriented to situation, CN II-XII grossly intact. ABSENT: motor sensory deficit Psychiatric exam: PRESENT: appropriate affect, normal mood. ABSENT: homicidal ideation, suicidal ideation Results Laboratory Results: 07/20/18 03:54 07/20/18 03:54 07/15/18 12:40 Troponin I < 0.012 Impressions: Chest X-Ray 07/14/18 00:27 IMPRESSION: No evidence of acute intrathoracic disease. Head CT 07/14/18 00:27 IMPRESSION: No acute intracranial abnormality is identified. Assessment & Plan - Diagnosis (1) DKA, type 2 Qualifiers: Diabetes mellitus fci insulin use: without terminal superintendent use Diabetes mellitus complication detail: without coma Qualified Code(s): E11.10 - Type 2 diabetes mellitus with ketoacidosis without coma Is this a current diagnosis for this admission?: Yes Plan: Resolved (2) Diabetes mellitus type 2 in obese Is this a current diagnosis for this admission?: Yes Plan: Decrease Lantus to 15 units (3) Generalized weakness Is this a current diagnosis for this admission?: Yes Plan: I advised the patient to start getting out of bed and cooperate with physical therapy We DC'd telemetry and Wynne catheter today (4) Hyperglycemia Is this a current diagnosis for this admission?: Yes Plan: Improved (5) Hypertension Qualifiers: Hypertension type: unspecified Qualified Code(s): I10 - Essential (primary ) hypertension Is this a current diagnosis for this admission?: Yes Plan: Continue current management
[2018-07-21] MEDS: INSULIN LISPRO 100 UNIT/ML 3 ML VIAL SUBCUT PRN (21:52)
[2018-07-22] MEDS: LEVOTHYROXINE SODIUM 0.1 MG TABLET PO SCH (05:21)
[2018-07-22] MEDS: HEPARIN SOD (PORCINE) 5,000 UNIT/ML 1 ML SYRINGE SUBCUT SCH (05:23)
[2018-07-22 07:42] VITALS: BP 141/91
[2018-07-22] MEDS: METFORMIN HCL 500 MG TABLET PO SCH (08:08)
[2018-07-22] MEDS: INSULIN GLARGINE,HUM.REC.ANLOG 1,000 UNIT/10 ML UNIT SUBCUT SCH (09:00)
[2018-07-22] MEDS: MEGESTROL ACETATE 20 MG TABLET PO SCH (09:02)
[2018-07-22] MEDS: GABAPENTIN 300 MG CAPSULE PO SCH (09:02)
--- NOTE | 2018-07-22 13:29 | PDOC DISCHARGE SUMMARY ---
General - Admit/Disc Date/PCP Admission Date/Primary Care Provider: 07/14/18 04:02 IRA HAAS MD Discharge Date: 07/22/18 - Discharge Diagnosis (1) DKA, type 2 Is this a current diagnosis for this admission?: Yes (2) Diabetes mellitus type 2 in obese Is this a current diagnosis for this admission?: Yes (3) Generalized weakness Is this a current diagnosis for this admission?: Yes (4) Hyperglycemia Is this a current diagnosis for this admission?: Yes (5) Hypertension Is this a current diagnosis for this admission?: Yes - Additional Information Home Medications: Gabapentin [Neurontin 300 mg Capsule] 300 mg PO DAILY 07/14/18 Gabapentin [Neurontin 300 mg Capsule] 600 mg PO QHS 07/14/18 Glipizide/Metformin HCl [Glipizide-Metformin 2.5-500 Mg] 2 each PO BID 07/14/18 Levothyroxine Sodium [Synthroid] 200 mcg PO Q6AM 07/14/18 Lisinopril [Prinivil] 20 mg PO DAILY 07/14/18 Megestrol Acetate [Megace 20 Mg Tablet] 160 mg PO DAILY 07/14/18 History of Present Illness History of Present Illness: ROSA ISELA GRAVES is a 58 year old female Hospital Course Hospital Course: Patient left AGAINST MEDICAL ADVICE today before I see her Physical Exam Vital Signs: Temp Pulse Resp BP Pulse Ox 97.9 F 78 17 141/91 H 100 07/22/18 07:23 07/22/18 07:23 07/22/18 07:23 07/22/18 07:23 07/22/18 07:23 Intake & Output 07/21/18 07/22/18 07/23/18 06:59 06:59 06:59 Intake Total 1123 774 Output Total 2000 600 Balance -877 174 Weight 281 lb 8.485 oz 277 lb 5.464 oz Results Laboratory Results: 07/20/18 03:54 07/20/18 03:54 07/15/18 12:40 Troponin I < 0.012 Impressions: Chest X-Ray 07/14/18 00:27 IMPRESSION: No evidence of acute intrathoracic disease. Head CT 07/14/18 00:27 IMPRESSION: No acute intracranial abnormality is identified. Qualifiers - * PATIENT BEING DISCHARGED WITH ANY OF THE FOLLOWING DIAGNOSIS: No
== END 2018-07-22 12:40 | disposition left against medical advice (07) | DRG 638 ==
LOC: ER 00:10 → EH 04:02 → ICU 14:37 → 3W 07-15 15:42
PROVIDERS: ADMIT Internal Medicine; ATTEND Internal Medicine
DX: E11.10 Type 2 diabetes mellitus with ketoacidosis without coma (principal); N17.9 Acute kidney failure, unspecified; Z68.42 Body mass index [BMI] 45.0-49.9, adult; E87.1 Hypo-osmolality and hyponatremia; E66.01 Morbid (severe) obesity due to excess calories; E87.5 Hyperkalemia; I12.9 Hypertensive chronic kidney disease with stage 1 through stage 4 chronic kidney disease, or unspecified chronic kidney disease; E11.22 Type 2 diabetes mellitus with diabetic chronic kidney disease; E11.21 Type 2 diabetes mellitus with diabetic nephropathy; N18.3 Chronic kidney disease, stage 3 (moderate); Z79.4 Long term (current) use of insulin; E03.9 Hypothyroidism, unspecified; Z85.42 Personal history of malignant neoplasm of other parts of uterus; Z90.49 Acquired absence of other specified parts of digestive tract; Z90.10 Acquired absence of unspecified breast and nipple; Z91.14 Patient's other noncompliance with medication regimen; Z91.11 Patient's noncompliance with dietary regimen; E86.0 Dehydration; M25.512 Pain in left shoulder; R51 Headache; W01.0XXA Fall on same level from slipping, tripping and stumbling without subsequent striking against object, initial encounter; Z88.5 Allergy status to narcotic agent
CPT/HCPCS: 36415; 70450; 71045; 80048; 81001; 82803; 82947; 82962; 83036; 83735; 84100; 84484; 85025; 93005; 93010; 96360; 99285; J1644; J1815; J2405; J3490; J7060

== ENCOUNTER 2018-08-10 11:55 | Inpatient (IN) | payer SELFPAY ==
[2018-08-10] MEDS ORDERED: NORMAL SALINE 1000 ML 1,000 ML IV ONE (12:23)
[2018-08-10] MEDS ORDERED: FENTANYL CITRATE INJ/PF 100 MCG/2 ML AMPUL IV ONE (12:23)
[2018-08-10 12:40] LABS: ABSOLUTE EOSINOPHILS # (AUTO) 0.2 10^3/uL (0.0-0.6); ABSOLUTE MONOCYTES (AUTO) 1.3 10^3/uL (0.1-1.4); ABSOLUTE NEUT (AUTO) 11.7 10^3/uL (1.7-8.2); BASOPHILS % (AUTO) 0.3 % (0-2); EOSINOPHILS % (AUTO) 1.2 % (0-6); HEMATOCRIT 31.1 % (36.0-47.0); HEMOGLOBIN 10.6 g/dL (12.0-15.5); LYMPHOCYTES % (AUTO) 7.1 % (13-45); MEAN CORPUSCULAR HEMOGLOBIN 31.7 pg (27.0-33.4); MEAN CORPUSCULAR HGB CONC 34.2 g/dL (32.0-36.0); MEAN CORPUSCULAR VOLUME 93 fl (80-97); MONOCYTES % (AUTO) 9.2 % (3-13); PLATELET COUNT 206 10^3/uL (150-450); RED BLOOD COUNT 3.35 10^6/uL (3.72-5.28); RED CELL DISTRIBUTION WIDTH 15.2 % (11.5-14.0); SEGMENTED NEUTROPHILS % (AUTO) 82.2 % (42-78); TOTAL CELLS COUNTED % (AUTO) 100 %; WHITE BLOOD COUNT 14.3 10^3/uL (4.0-10.5)
[2018-08-10 12:41] LABS: VENOUS BLOOD BASE EXCESS -10.3 mmol/L; VENOUS BLOOD HCO3 14.3 mmol/L (20-32); VENOUS BLOOD PCO2 27.3 mmHg (35-63); VENOUS BLOOD PH 7.34 (7.30-7.42)
[2018-08-10 12:53] LABS: PARTIAL THROMBOPLASTIN TIME 34.7 SEC (23.5-35.8); PROTHROMBIN TIME 15.9 SEC (11.4-15.4)
[2018-08-10 13:05] LABS: ALANINE AMINOTRANSFERASE 35 U/L (9-52); ALBUMIN 2.9 g/dL (3.5-5.0); ALKALINE PHOSPHATASE 421 U/L (38-126); ANION GAP 11 (5-19); ASPARTATE AMINO TRANSFERASE 39 U/L (14-36); BILIRUBIN,DIRECT 2.1 mg/dL (0.0-0.4); BILIRUBIN,TOTAL 2.9 mg/dL (0.2-1.3); BLOOD UREA NITROGEN 49 mg/dL (7-20); CALCIUM 8.8 mg/dL (8.4-10.2); CARBON DIOXIDE 16 mmol/L (22-30); CHLORIDE 110 mmol/L (98-107); GLUCOSE 245 mg/dL (75-110); LIPASE 103.4 U/L (23-300); SODIUM 136.8 mmol/L (137-145); TOTAL PROTEIN 6.8 g/dL (6.3-8.2)
[2018-08-10] MEDS ORDERED: INSULIN REG, HUMAN 100 UNIT/ML 3 ML VIAL (PYX) SUBCUT ONE (13:15)
[2018-08-10 13:20] LABS: APPEARANCE,URINE TURBID; BILIRUBIN,URINE NEGATIVE (NEGATIVE); GLUCOSE, URINE NEGATIVE (NEGATIVE); KETONES,URINE NEGATIVE (NEGATIVE); LEUKOCYTE ESTERASE,URINE LARGE (NEGATIVE); NITRITE,URINE POSITIVE (NEGATIVE); PROTEIN,URINE 100 mg/dL (NEGATIVE); URINE SPECIFIC GRAVITY 1.015
[2018-08-10 13:23] LABS: COLOR,URINE YELLOW
--- NOTE | 2018-08-10 13:37 | RADIOLOGY REPORT (SQ) ---
EXAM DESCRIPTION: HIP BILATERAL COMPLETED DATE/TIME: 08/10/2018 1:25 pm REASON FOR STUDY: hip pain post fall COMPARISON: None. NUMBER OF VIEWS: Three views. TECHNIQUE: AP pelvis and additional frog-leg view of the right and left hip. LIMITATIONS: None. FINDINGS: MINERALIZATION: Normal. PRIMARY HIP: No fracture or dislocation. No worrisome bone lesions. OPPOSITE HIP: No fracture or dislocation. No worrisome bone lesions. PUBIS AND ISCHIUM: No fracture. PELVIS: No fracture. SACRUM: No fracture or dislocation. No worrisome bone lesions. LOWER LUMBAR SPINE: No fracture or dislocation. No worrisome bone lesions. No significant disc disea se. SOFT TISSUES: No findings. OTHER: No other significant finding. IMPRESSION: NEGATIVE STUDY OF THE RIGHT AND LEFT HIPS AND PELVIS. NO RADIOGRAPHIC EVIDENCE OF ACUTE INJURY. TECHNICAL DOCUMENTATION: JOB ID: [id number] [employer]- All Rights Reserved Reading location - IP/workstation name: [email or web address]
--- NOTE | 2018-08-10 13:39 | RADIOLOGY REPORT (SQ) ---
EXAM DESCRIPTION: CHEST SINGLE VIEW COMPLETED DATE/TIME: 08/10/2018 1:25 pm REASON FOR STUDY: short of breath COMPARISON: None. EXAM PARAMETERS: NUMBER OF VIEWS: One view. TECHNIQUE: Single frontal radiographic view of the chest acquired. RADIATION DOSE: NA LIMITATIONS: None. FINDINGS: LUNGS AND PLEURA: No opacities, masses or pneumothorax. No pleural effusion. MEDIASTINUM AND HILAR STRUCTURES: No masses. Contour normal. HEART AND VASCULAR STRUCTURES: Heart normal in size. Normal vasculature. BONES: No acute findings. HARDWARE: None in the chest. OTHER: No other significant finding. IMPRESSION: NO ACUTE RADIOGRAPHIC FINDING IN THE CHEST. TECHNICAL DOCUMENTATION: JOB ID: [id number] [employer]- All Rights Reserved Reading location - IP/workstation name: [email or web address]
--- NOTE | 2018-08-10 13:47 | ER Document Report ---
ED General - General Chief Complaint: General Weakness Stated Complaint: WEAKNESS Time Seen by Provider: 08/10/18 12:20 Mode of Arrival: Wheelchair Information source: Patient TRAVEL OUTSIDE OF THE [place] IN LAST 30 DAYS: No - HPI Patient complains to provider of: weakness Onset: Other - Is a morbidly obese 58-year-old female that is type II as well as patient with hypertension and chronic pain issues who was previously admitted at the end of June for developing DKA subsequently signed out AGAINST MEDICAL ADVICE that she "was not getting anything done" subsequently gone home where she is cared for mostly by her mother who is 82 years old. She notes that over the last 5 days she has not taken any of her normal medications because she has been feeling nauseous and unable to eat, she is now also had multiple falls at home onto her knees and onto her buttocks and cannot walk now requiring her wheelchair to help with ambulation because of the pain in her legs. She denies fever, does endorse some shortness of breath, does endorse some abdominal pain and nausea, denies any dysuria, does endorse some rectal pain which she believes may be related to a developing pilonidal issue. - Related Data Allergies/Adverse Reactions: oxycodone Allergy (Verified 08/10/18 12:44) Generalized Itching pioglitazone [From Actos] Allergy (Verified 08/10/18 12:44) COULDN'T BREATHE Past Medical History - General Information source: Patient - Social History Smoking Status: Never Smoker Frequency of alcohol use: None Drug Abuse: None Family History: Reviewed & Not Pertinent Patient has suicidal ideation: No Patient has homicidal ideation: No - Past Medical History Cardiac Medical History: Reports: Hx Hypertension Denies: Hx Heart Attack Pulmonary Medical History: Denies: Hx Asthma Neurological Medical History: Reports: Hx Seizures. Denies: Hx Cerebrovascular Accident Endocrine Medical History: Reports: Hx Diabetes Mellitus Type 2, Hx Hypothyroidism Renal/ Medical History: Denies: Hx Peritoneal Dialysis GI Medical History: Denies: Hx Hepatitis, Hx Hiatal Hernia, Hx Ulcer Infectious Medical History: Denies: Hx Hepatitis Past Surgical History: Reports: Hx Cholecystectomy, Hx Mastectomy, Hx Pacemaker , Other - cataract. Denies: Hx Open Heart Surgery - Immunizations Hx Diphtheria, Pertussis, Tetanus Vaccination: Yes Review of Systems - Review of Systems -: Yes All other systems reviewed and negative Physical Exam - Vital signs Vitals: Temp Resp Pulse Ox 98.1 F 15 99 08/10/18 12:17 08/10/18 12:17 08/10/18 12:17 - General General appearance: Anxious In distress: Mild - HEENT Head: Normocephalic Eyes: Normal Conjunctiva: Normal Cornea: Normal Extraocular movements intact: Yes Eyelashes: Normal Pupils: PERRL - Respiratory Respiratory status: Tachypnea Chest status: Nontender Breath sounds: Normal Chest palpation: Normal - Cardiovascular Rhythm: Regular Heart sounds: Normal auscultation Murmur: No - Abdominal Inspection: Morbidly Obese Distension: Distended Tenderness: Nontender Organomegaly: No organomegaly - Rectal Tenderness: No Stool: Heme negative Hemorrhoids: None - Back Back: Normal - Extremities General upper extremity: Normal inspection, Nontender, Normal ROM, Normal strength General lower extremity: Other - Lower extremities demonstrate multiple ecchymoses, some dry skin in the bilateral feet with flaking and ulceration over the heel as well as toes - Neurological Neuro grossly intact: Yes Cognition: Normal Orientation: AAOx4 Harley Coma Scale Eye Opening: Spontaneous [place] Coma Scale Verbal: Oriented [place] Coma Scale Motor: Obeys Commands [place] Coma Scale Total: 15 Speech: Normal Cranial nerves: Normal Cerebellar coordination: Normal Motor strength normal: LUE, RUE, LLE, RLE - Psychological Associated symptoms: Other - Bizarre affect Course - Re-evaluation Re-evalutation: 08/10/18 13:44 58-year-old female with a history of type 2 diabetes as well as morbid obesity and hypertension presents for evaluation of inability to walk. On examination she is got scattered ecchymosis extending from her pelvis down her feet with several small ulcerations over the feet. - Vital Signs Vital signs: Temp Pulse Resp BP Pulse Ox 98.1 F 18 124/73 98 08/10/18 12:17 08/10/18 12:46 08/10/18 12:46 08/10/18 12:46 - Laboratory Result Diagrams: 08/10/18 12:20 08/10/18 12:20 Laboratory results interpreted by me: 08/10/18 08/10/18 08/10/18 12:20 12:20 12:20 WBC 14.3 H RBC 3.35 L Hgb 10.6 L Hct 31.1 L RDW 15.2 H Seg Neutrophils % 82.2 H Lymphocytes % 7.1 L Absolute Neutrophils 11.7 H PT 15.9 H VBG pCO2 VBG HCO3 Sodium 136.8 L Potassium 6.0 H* Chloride 110 H Carbon Dioxide 16 L BUN 49 H Creatinine 2.16 H Est GFR ( Amer) 28 L Est GFR (Non-Af Amer) 23 L Glucose 245 H Total Bilirubin 2.9 H Direct Bilirubin 2.1 H AST 39 H Alkaline Phosphatase 421 H Albumin 2.9 L Urine Protein Urine Blood Urine Nitrite Urine Urobilinogen Ur Leukocyte Esterase 08/10/18 08/10/18 12:20 12:50 WBC RBC Hgb Hct RDW Seg Neutrophils % Lymphocytes % Absolute Neutrophils PT VBG pCO2 27.3 L VBG HCO3 14.3 L Sodium Potassium Chloride Carbon Dioxide BUN Creatinine Est GFR ( Amer) Est GFR (Non-Af Amer) Glucose Total Bilirubin Direct Bilirubin AST Alkaline Phosphatase Albumin Urine Protein 100 H Urine Blood MODERATE H Urine Nitrite POSITIVE H Urine Urobilinogen 4.0 H Ur Leukocyte Esterase LARGE H Discharge - Discharge Clinical Impression: Weakness, Hyperkalemia, DIANNE (acute kidney injury), Non-compliance, Diabetes mellitus type 2 in obese Leg pain Qualifiers: Laterality: bilateral Qualified Code(s): M79.604 - Pain in right leg Condition: Stable Disposition: ADMITTED INPATIENT Admitting Provider: Hospitalist Unit Admitted: Telemetry
--- NOTE | 2018-08-10 14:51 | RADIOLOGY REPORT (SQ) ---
EXAM DESCRIPTION: KNEE BILATERAL 1-2 VIEWS COMPLETED DATE/TIME: 08/10/2018 1:25 pm REASON FOR STUDY: knee pain post fall onto knee COMPARISON: None. NUMBER OF VIEWS: Four views. TECHNIQUE: AP and lateral radiographic images acquired of the right and left knee. LIMITATIONS: None. FINDINGS: MINERALIZATION: Osteopenia. BONES: Nondisplaced fracture of the left proximal fibular diaphysis. JOINT: No effusion. SOFT TISSUES: No soft tissue swelling. No radio-opaque foreign body. OTHER: No other significant finding. IMPRESSION: Nondisplaced fracture proximal left fibula. TECHNICAL DOCUMENTATION: JOB ID: [id number] [employer]- All Rights Reserved Reading location - IP/workstation name: [email or web address]
[2018-08-10] MEDS ORDERED: MAGNESIUM HYDROXIDE SUSP 30 ML UDCUP PO PRN (15:14)
[2018-08-10] MEDS ORDERED: ACETAMINOPHEN 325 MG TABLET PO PRN (15:14)
[2018-08-10] MEDS ORDERED: TEMAZEPAM 15 MG CAPSULE PO PRN (15:14)
[2018-08-10] MEDS ORDERED: MAG HYDROX/AL HYDROX/SIMETH SUSP 30 ML UDCUP PO PRN (15:14)
[2018-08-10] MEDS: NORMAL SALINE 1000 ML 1,000 ML IV PRN ×2 (15:50→23:04)
[2018-08-10] MEDS ORDERED: SODIUM POLYSTYRENE SULFONATE 15 GM/60 ML PO ONE (16:34)
[2018-08-10] MEDS ORDERED: DEXTROSE 40% GEL 15 GM TUBE PO PRN ×2 (16:36)
[2018-08-10] MEDS ORDERED: DEXTROSE 50%-WATER 25 GM/50 ML DISP.SYRIN IV PRN ×2 (16:36)
[2018-08-10] MEDS ORDERED: GLUCAGON,HUMAN RECOMB 1 MG INJ IM PRN (16:36)
[2018-08-10] MEDS: INSULIN LISPRO 100 UNIT/ML 3 ML VIAL SUBCUT PRN ×2 (17:09→21:39)
[2018-08-10] MEDS: MORPHINE SULFATE 10 MG/ML INJ IV PRN ×2 (17:09→21:45)
[2018-08-10] MEDS: PREGABALIN 50 MG CAPSULE PO SCH (17:09)
[2018-08-10] MEDS: DOCUSATE SODIUM 100 MG CAPSULE PO SCH (17:09)
--- NOTE | 2018-08-10 17:29 | PDOC H&P ---
History of Present Illness Admission Date/PCP: 08/10/18 14:04 IRA HAAS MD Patient complains of: Weakness History of Present Illness: ROSA ISELA GRAVES is a 58 year old female who presented to the emergency room with a 5-day history of progressively worsening generalized weakness. She admits that 5 days ago she she began feeling very poorly and discontinued taking all of her normal medications. She then noticed that she began feeling more progressively nauseated and had been unable to eat any food or consume much in the way of fluids. Over the next day or so she became so weak that she had fall multiple falls and was required to crawl in order to get around until she began using a wheelchair. She states that due to the fall she had pain in her legs and buttocks. She admits associated symptoms of intermittent dyspnea, severe discomfort in her buttocks and sacral region, severe discomfort in her feet over the dorsal aspects to any palpation or any contact of the dorsal surfaces. She also acknowledges occasional abdominal pain with nausea but no vomiting and occasional rectal pain without bleeding. She relates that she believes she is probably developing another pilonidal cyst though an evaluation of this area in the emergency room revealed no evidence of an emerging cyst. She denies dysuria, hematuria, fever, chills, headaches, syncope, palpitations, chest pain and rash. In the emergency room she was found to have a elevated creatinine at 2.16 with a potassium of 6.0 and a blood sugar of 245. Additional findings included an elevated white blood count of 14,300 and a depressed hemoglobin of 10.6. Because her creatinine elevation was significantly higher than the previous normal creatinine level within the last 12 months patient was admitted to the hospital for treatment of her acute renal injury/acute renal failure. Past Medical History Cardiac Medical History: Reports: Hypertension Denies: Atrial Fibrillation, Congestive Heart Failure, Coronary Artery Disease, DVT, Myocardial Infarction, Peripheral Vascular Disease, Pulmonary Embolism, Heart Murmur Pulmonary Medical History: Denies: Asthma, Chronic Obstructive Pulmonary Disease (COPD), Respiratory Failure EENT Medical History: Reports: None Neurological Medical History: Reports: Seizures Denies: Hemorrhagic CVA, Ischemic CVA, Multiple Sclerosis Endocrine Medical History: Reports: Diabetes Mellitus Type 2, Hypothyroidism, Obesity Denies: Diabetes Mellitus Type 1, Hyperthyroidism Renal/ Medical History: Denies: Chronic Kidney Disease, Nephrolithiasis Malignancy Medical History: Reports: None GI Medical History: Denies: Crohn's Disease, Gastroesophageal Reflux Disease, Hepatitis, Hiatal Hernia, Peptic Ulcer Disease, Ulcerative Colitis Musculoskeltal Medical History: Denies: Arthritis, Gout Skin Medical History: Denies: Eczema, Psoriasis Psychiatric Medical History: Denies: Alcohol Dependency, Depression, General Anxiety Disorder, Substance Abuse, Tobacco Dependency Traumatic Medical History: Reports: None Hematology: Denies: Anemia, Hemophilia, Sickle Cell Disease, Bleeding Tendencies Infectious Medical History: Reports: None Past Surgical History Past Surgical History: Reports: Cholecystectomy, Mastectomy, Pacemaker, Other - cataract Denies: Amputation Social History Information Source: Patient Lives with: Family - Lives with her elderly mother who cares for her Smoking Status: Never Smoker Frequency of Alcohol Use: None Hx Recreational Drug Use: No Hx Prescription Drug Abuse: No - Advance Directive Resuscitation Status: Full Code Family History Family History: DM, Hypertension, Thyroid Disfunction Parental Family History Reviewed: Yes Children Family History Reviewed: NA Sibling(s) Family History Reviewed.: Yes Medication/Allergy Home Medications: Gabapentin [Neurontin 300 mg Capsule] 300 mg PO DAILY 07/14/18 Gabapentin [Neurontin 300 mg Capsule] 600 mg PO QHS 07/14/18 Glipizide/Metformin HCl [Glipizide-Metformin 2.5-500 Mg] 2 each PO BID 07/14/18 Levothyroxine Sodium [Synthroid] 200 mcg PO Q6AM 07/14/18 Megestrol Acetate [Megace 20 Mg Tablet] 160 mg PO DAILY 07/14/18 Fluconazole [Diflucan] 150 mg PO DAILY PRN 08/10/18 Fosinopril Sodium 20 mg PO DAILY 08/10/18 Naproxen Sod/Diphenhydramine [Aleve Pm Caplet] 2 each PO DAILY 08/10/18 Allergies/Adverse Reactions: oxycodone Allergy (Verified 08/10/18 12:44) Generalized Itching pioglitazone [From Actos] Allergy (Verified 08/10/18 12:44) COULDN'T BREATHE Review of Systems Constitutional: PRESENT: fatigue, weakness. ABSENT: chills, fever(s), headache( s) Eyes: ABSENT: visual disturbances, other - Ocular pain Ears: ABSENT: hearing changes, other - Ear pain Nose, Mouth, and Throat: ABSENT: headache(s), mouth pain, sore throat, vertigo Cardiovascular: PRESENT: dyspnea on exertion. ABSENT: chest pain, edema, orthropnea, palpitations Respiratory: PRESENT: dyspnea. ABSENT: cough, hemoptysis Gastrointestinal: PRESENT: abdominal pain, nausea. ABSENT: constipation, diarrhea, hematemesis, vomiting Genitourinary: ABSENT: dysuria, hematuria Musculoskeletal: PRESENT: muscle weakness - Generalized. ABSENT: deformity, joint swelling Integumentary: ABSENT: pruritus, rash Neurological: PRESENT: abnormal gait - Unable to walk due to weakness, frequent falls, weakness - Generalized. ABSENT: abnormal movements, abnormal speech, confusion, convulsions, dizziness, focal weakness, lack of coordination, memory loss, numbness, paresthesias, syncope, tingling, tremor(s), vertigo Psychiatric: ABSENT: anxiety, depression Endocrine: ABSENT: cold intolerance, heat intolerance, polydipsia, polyphagia, polyuria Hematologic/Lymphatic: ABSENT: easy bleeding, easy bruising Allergic/Immunologic: ABSENT: seasonal rhinorrhea, other - Insect bite allergy Physical Exam Vital Signs: Temp Pulse Resp BP Pulse Ox 98.1 F 17 125/94 H 98 08/10/18 12:17 08/10/18 15:01 08/10/18 15:01 08/10/18 15:01 General appearance: PRESENT: cooperative, disheveled - With grossly poor hygiene., morbidly obese, other - Moderate distress secondary to discomfort in her feet and her buttocks. Head exam: PRESENT: atraumatic, normocephalic Eye exam: PRESENT: conjunctiva pink, EOMI. ABSENT: conjunctival injection, nystagmus, periorbital swelling, scleral icterus Ear exam: PRESENT: normal external ear exam. ABSENT: bleeding, drainage Mouth exam: PRESENT: neck supple, tongue midline Neck exam: ABSENT: JVD, thyromegaly, tracheal deviation Respiratory exam: PRESENT: clear to auscultation karla, symmetrical, unlabored Cardiovascular exam: PRESENT: RRR. ABSENT: clicks, gallop, rubs Pulses: PRESENT: normal radial pulses, normal dorsalis pedis pul Vascular exam: PRESENT: normal capillary refill. ABSENT: pallor GI/Abdominal exam: PRESENT: normal bowel sounds, soft Rectal exam: PRESENT: deferred Extremities exam: PRESENT: tenderness - Hyperesthetic tenderness to the dorsums of both feet and to the sacral region as well as the bilateral buttocks.. ABSENT: joint swelling, pedal edema Musculoskeletal exam: PRESENT: full ROM, other - Multiple ecchymoses noted on the bilateral lower extremities of varying ages.. ABSENT: deformity, dislocation Neurological exam: PRESENT: alert, oriented to person, oriented to place, oriented to time, oriented to situation, CN II-XII grossly intact. ABSENT: motor sensory deficit Psychiatric exam: PRESENT: appropriate affect, normal mood Focused psych exam: PRESENT: restlessness - Secondary to discomfort in her sacral gluteal region. Skin exam: ABSENT: jaundice, rash, urticaria Results EKG Comments: Normal sinus rhythm without ectopy, or evidence of ischemia at a rate of 71 ( interpreted by myself). Impressions: Hip X-Ray 08/10/18 12:23 IMPRESSION: NEGATIVE STUDY OF THE RIGHT AND LEFT HIPS AND PELVIS. NO RADIOGRAPHIC EVIDENCE OF ACUTE INJURY. Knee X-Ray 08/10/18 12:24 IMPRESSION: Nondisplaced fracture proximal left fibula. Chest X-Ray 08/10/18 12:25 IMPRESSION: NO ACUTE RADIOGRAPHIC FINDING IN THE CHEST. Assessment & Plan - Diagnosis (1) DIANNE (acute kidney injury) Is this a current diagnosis for this admission?: Yes Plan: Patient was noted to have had a creatinine of 0.8 sometime within the last 12 months per the emergency room physician. With her creatinine now at 2.16 a diagnosis of acute renal injury/acute renal failure is obvious. She has been admitted for IV fluid therapy to correct the dehydration component of her acute renal injury and for treatment of her hyperkalemia component Kayexalate and insulin have been given. Daily evaluation of her renal functions will be performed. Additional therapy be provided and/or consultation will be obtained as needed. (2) Diabetes mellitus type 2 in obese Is this a current diagnosis for this admission?: Yes Plan: Patient has been noncompliant with her diabetic therapy and with her significant renal failure is not appropriate to start her back on metformin. Patient will be treated with Lantus at 0.3 units/kg/day and sliding scale lispro before meals and at bedtime. A hemoglobin A1c will be checked in the morning and further treatment will be rendered as appropriate. (3) Hyperkalemia Is this a current diagnosis for this admission?: Yes Plan: Patient's potassium is 6.0 at the time of admission and she has been treated with insulin for her diabetes and will also be receiving Kayexalate 30 g p.o. x1. Her electrolytes be rechecked at 2200 tonight and again in the morning. Further treatment will be given in accordance with her laboratory values. IV fluids will be continued at 167 mL/h utilizing normal saline. (4) Generalized weakness Is this a current diagnosis for this admission?: Yes Plan: Patient's generalized weakness is most likely due to her lack of taking her appropriate medications as well as significant dehydration. She will be rehydrated and blood sugar will be controlled with reintroduction of a diet/ nutrition. She will be given physical therapy and occupational therapy evaluations for improvement in her strength and recovery of her ability to ambulate. Her pain and discomfort will be treated with morphine IV utilizing 2 mg for pain of 1-2/5, 3 mg IV for pain of 3-4/5 and 4 mg IV for pain of 5/5 all can be given on an as-needed basis every hour. IV fluids will be normal saline at 167 mL/h. Her laboratory values be reassessed every morning and as appropriate. (5) Hyperesthesia Is this a current diagnosis for this admission?: Yes Plan: Patient complains of severe pain with even the slightest touch or brushing over the dorsum's of her feet and on her sacral and buttock areas. She is being treated with gabapentin for diabetic peripheral neuropathy and she states that this feels a lot like her peripheral neuropathy when it flares up. She also has had similar symptoms when she had a pilonidal cyst in the past. She has been noncompliant with her medication for several days and therefore is not taken her gabapentin. I have elected to begin treating her with Lyrica 50 mg p.o. twice daily as she reports that her gabapentin was less than satisfactorily effective. Therapy will need to be reassessed in approximately 1 -2 weeks with adjustments in dosage as required. (6) Hypertension Qualifiers: Hypertension type: essential hypertension Qualified Code(s): I10 - Essential (primary) hypertension Is this a current diagnosis for this admission?: Yes Plan: Patient gives a history of hypertension and has been noncompliant with her medications. She has no antihypertensive medication on her current medication list. Her blood pressure of the vital signs were monitored closely during her hospital course with appropriate intervention as needed. (7) Hypothyroidism Qualifiers: Hypothyroidism type: unspecified Qualified Code(s): E03.9 - Hypothyroidism , unspecified Is this a current diagnosis for this admission?: Yes Plan: Patient has a history of hypothyroidism and is currently on levothyroxine therapy taking 200 mcg/day. She will be continued on this dose during her hospital course and a TSH will be assessed to evaluate the efficacy of her current treatment. (8) Morbid obesity due to excess calories Is this a current diagnosis for this admission?: Yes Plan: Patient will be placed on a consistent carbohydrate no concentrated sweets diet of approximately 1500 -1600 izabella daily. This diet should provide gradual weight loss which would be most desirable for this patient's ongoing general health and well-being. Diet education and ongoing evaluation will be offered to the patient at the time of discharge or before. I have informed her that I would be placing her on an appropriate diet for her diabetes and weight loss. - Time Time Spent: Greater than 70 Minutes Critical Time spent with patient: Less than 15 minutes Medications reviewed and adjusted accordingly: Yes Anticipated discharge: Home, Home with Homehealth
--- NOTE | 2018-08-10 18:28 | EKG REPORT ---
SEVERITY:- BORDERLINE ECG - SINUS RHYTHM BORDERLINE T ABNORMALITIES, ANT-LAT LEADS : Confirmed by: Jaspal Gandhi MD 10-Aug-2018 18:27:15
[2018-08-10] MEDS: INSULIN GLARGINE,HUM.REC.ANLOG 300 UNIT/3 ML INSULN.PEN SUBCUT SCH (21:41)
[2018-08-10] MEDS: FAMOTIDINE 20 MG TABLET PO SCH (21:43)
[2018-08-10 22:26] LABS: ANION GAP 9 (5-19); BLOOD UREA NITROGEN 48 mg/dL (7-20); CALCIUM 8.4 mg/dL (8.4-10.2); CARBON DIOXIDE 13 mmol/L (22-30); CHLORIDE 115 mmol/L (98-107); GLUCOSE 148 mg/dL (75-110); POTASSIUM 5.8 mmol/L (3.6-5.0); SODIUM 136.5 mmol/L (137-145)
[2018-08-11 04:51] LABS: ABSOLUTE EOSINOPHILS # (AUTO) 0.2 10^3/uL (0.0-0.6); ABSOLUTE MONOCYTES (AUTO) 1.3 10^3/uL (0.1-1.4); ABSOLUTE NEUT (AUTO) 11.5 10^3/uL (1.7-8.2); BASOPHILS % (AUTO) 0.3 % (0-2); EOSINOPHILS % (AUTO) 1.6 % (0-6); LYMPHOCYTES % (AUTO) 6.8 % (13-45); MEAN CORPUSCULAR HEMOGLOBIN 31.7 pg (27.0-33.4); MEAN CORPUSCULAR HGB CONC 34.7 g/dL (32.0-36.0); MEAN CORPUSCULAR VOLUME 91 fl (80-97); MONOCYTES % (AUTO) 9.2 % (3-13); PLATELET COUNT 195 10^3/uL (150-450); RED BLOOD COUNT 3.17 10^6/uL (3.72-5.28); RED CELL DISTRIBUTION WIDTH 14.9 % (11.5-14.0); SEGMENTED NEUTROPHILS % (AUTO) 82.1 % (42-78); TOTAL CELLS COUNTED % (AUTO) 100 %
[2018-08-11 05:12] LABS: ANION GAP 8 (5-19); BLOOD UREA NITROGEN 46 mg/dL (7-20); CALCIUM 8.3 mg/dL (8.4-10.2); CARBON DIOXIDE 14 mmol/L (22-30); CHLORIDE 116 mmol/L (98-107); CHOLESTEROL 175.98 mg/dL (0-200); GLUCOSE 116 mg/dL (75-110); POTASSIUM 5.4 mmol/L (3.6-5.0); SODIUM 138.3 mmol/L (137-145); TRIGLYCERIDES 250 mg/dL (<150)
[2018-08-11] MEDS: NORMAL SALINE 1000 ML 1,000 ML IV PRN ×2 (05:18→11:13)
[2018-08-11 05:22] LABS: DIRECT LDL 93 mg/dL (<100)
[2018-08-11] MEDS ORDERED: LEVOTHYROXINE SODIUM 0.1 MG TABLET PO SCH (06:00)
[2018-08-11] MEDS: SODIUM POLYSTYRENE SULFONATE 15 GM/60 ML PO ONE ×2 (09:27→09:31)
[2018-08-11] MEDS ORDERED: SODIUM POLYSTYRENE SULFONATE 15 GM/60 ML ONE (09:29)
[2018-08-11] MEDS: PREGABALIN 50 MG CAPSULE PO SCH ×2 (09:31→17:47)
[2018-08-11] MEDS: FAMOTIDINE 20 MG TABLET PO SCH ×2 (09:31→21:54)
[2018-08-11] MEDS: DOCUSATE SODIUM 100 MG CAPSULE PO SCH ×2 (09:31→17:47)
[2018-08-11] MEDS: ENOXAPARIN SODIUM INJ 40 MG/0.4 ML DISP.SYRIN SUBCUT SCH (09:32)
[2018-08-11] MEDS: INSULIN GLARGINE,HUM.REC.ANLOG 300 UNIT/3 ML INSULN.PEN SUBCUT SCH ×2 (09:41→21:59)
[2018-08-11] MEDS ORDERED: SODIUM POLYSTYRENE SULFONATE 15 GM/60 ML PO ONE (10:00)
[2018-08-11] MEDS: INSULIN LISPRO 100 UNIT/ML 3 ML VIAL SUBCUT PRN (11:57)
[2018-08-11] MEDS: MORPHINE SULFATE 10 MG/ML INJ IV PRN ×4 (11:58→21:53)
--- NOTE | 2018-08-11 15:06 | PDOC PROGRESS REPORT ---
Subjective Progress Note for:: 08/11/18 Subjective:: ALICIA GRAVES is a 58 year old female who presented to the emergency room with a 5-day history of progressively worsening generalized weakness. She admits that 5 days ago she she began feeling very poorly and discontinued taking all of her normal medications. She then noticed that she began feeling more progressively nauseated and had been unable to eat any food or consume much in the way of fluids. Over the next day or so she became so weak that she had fall multiple falls and was required to crawl in order to get around until she began using a wheelchair. She states that due to the fall she had pain in her legs and buttocks. She admits associated symptoms of intermittent dyspnea, severe discomfort in her buttocks and sacral region, severe discomfort in her feet over the dorsal aspects to any palpation or any contact of the dorsal surfaces. She also acknowledges occasional abdominal pain with nausea but no vomiting and occasional rectal pain without bleeding. She relates that she believes she is probably developing another pilonidal cyst though an evaluation of this area in the emergency room revealed no evidence of an emerging cyst. She denies dysuria, hematuria, fever, chills, headaches, syncope, palpitations, chest pain and rash. In the emergency room she was found to have a elevated creatinine at 2.16 with a potassium of 6.0 and a blood sugar of 245. Additional findings included an elevated white blood count of 14,300 and a depressed hemoglobin of 10.6. Because her creatinine elevation was significantly higher than the previous normal creatinine level within the last 12 months patient was admitted to the hospital for treatment of her acute renal injury/acute renal failure. 08/11/18: Alicia feels substantially better this morning with a significant improvement in her generalized weakness and decrease in her nausea and dyspnea. She continues to have pains in her feet and buttocks but is not currently having any abdominal pain. She was happy to hear that her white blood count was slightly reduced to 14,000 and her creatinine was decreased to 1.87 with a drop in her BUN to 46. I have encouraged her to be patient and realized that improvement will be slow and gradual as her hydration status improves she will probably feel considerably better. We will discontinue the normal saline IV and change to half-normal saline at 167 mL/h. We will continue to follow her daily laboratory tests (CBC, BMP and magnesium). She was also delighted to find out that her blood sugar has been in good control with her current regiment. She specifically asked to not have to take any more Kayexalate because of the bad taste and the resultant diarrhea. I informed her that her potassium level had decreased far enough that she should not have to have Kayexalate anymore unless she has any further arrhythmias like the one she had earlier this morning. Her cardiac rehabilitation specialist strip showed a supraventricular/ junctional flutter wave pattern with 4-1 block lasting for more than 6 seconds. She will be continued on cardiac monitoring through the remainder of her hospital course. 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 Reason For Visit: ACUTE RENAL FAILURE Physical Exam Vital Signs: Temp Pulse Resp BP Pulse Ox 98.3 F 71 20 103/50 L 99 08/11/18 07:44 08/11/18 13:35 08/11/18 07:44 08/11/18 07:44 08/11/18 07:44 Intake & Output 08/09/18 08/10/18 08/11/18 23:59 23:59 23:59 Intake Total 1250 2668 Output Total 0 100 Balance 1250 2568 Weight 118 kg General appearance: PRESENT: no acute distress, cooperative, morbidly obese Head exam: PRESENT: atraumatic, normocephalic Eye exam: PRESENT: EOMI. ABSENT: conjunctival injection, nystagmus, periorbital swelling, scleral icterus Ear exam: ABSENT: bleeding, drainage, normal external ear exam Mouth exam: PRESENT: neck supple, tongue midline Neck exam: ABSENT: JVD, thyromegaly, tracheal deviation Respiratory exam: PRESENT: clear to auscultation karla, symmetrical, unlabored Cardiovascular exam: PRESENT: RRR. ABSENT: clicks, gallop, rubs Vascular exam: PRESENT: normal capillary refill. ABSENT: pallor GI/Abdominal exam: PRESENT: normal bowel sounds, soft Rectal exam: PRESENT: deferred Extremities exam: ABSENT: joint swelling, pedal edema Musculoskeletal exam: PRESENT: normal inspection, tenderness - Bilateral dorsal feet are exquisitely tender with hyperesthesia to even the slightest touch.. ABSENT: deformity, dislocation Neurological exam: PRESENT: alert, oriented to person, oriented to place, oriented to time, oriented to situation, CN II-XII grossly intact, other - Hyperesthesia to minimal stimulation of the dorsal surface of both feet and her buttocks/sacral area. Psychiatric exam: PRESENT: appropriate affect, normal mood Skin exam: ABSENT: jaundice, rash, urticaria Results Laboratory Results: 08/11/18 04:05 08/11/18 04:05 08/10/18 08/11/18 08/11/18 22:00 04:05 04:05 WBC 14.0 H RBC 3.17 L Hgb 10.0 L Hct 29.0 L MCV 91 MCH 31.7 MCHC 34.7 RDW 14.9 H Plt Count 195 Seg Neutrophils % 82.1 H Lymphocytes % 6.8 L Monocytes % 9.2 Eosinophils % 1.6 Basophils % 0.3 Absolute Neutrophils 11.5 H Absolute Lymphocytes 1.0 Absolute Monocytes 1.3 Absolute Eosinophils 0.2 Absolute Basophils 0.0 Sodium 136.5 L 138.3 Potassium 5.8 H 5.4 H Chloride 115 H 116 H Carbon Dioxide 13 L 14 L Anion Gap 9 8 BUN 48 H 46 H Creatinine 1.88 H 1.87 H Est GFR ( Amer) 33 L 33 L Est GFR (Non-Af Amer) 27 L 27 L Glucose 148 H 116 H Calcium 8.4 8.3 L Magnesium 2.4 H Triglycerides 250 H Cholesterol 175.98 LDL Cholesterol Direct 93 VLDL Cholesterol 50.0 H HDL Cholesterol 17 L TSH 08/11/18 04:05 WBC RBC Hgb Hct MCV MCH MCHC RDW Plt Count Seg Neutrophils % Lymphocytes % Monocytes % Eosinophils % Basophils % Absolute Neutrophils Absolute Lymphocytes Absolute Monocytes Absolute Eosinophils Absolute Basophils Sodium Potassium Chloride Carbon Dioxide Anion Gap BUN Creatinine Est GFR ( Amer) Est GFR (Non-Af Amer) Glucose Calcium Magnesium Triglycerides Cholesterol LDL Cholesterol Direct VLDL Cholesterol HDL Cholesterol TSH 0.12 L 08/11/18 04:05 NT-Pro-B Natriuret Pep 913 H Impressions: Hip X-Ray 08/10/18 12:23 IMPRESSION: NEGATIVE STUDY OF THE RIGHT AND LEFT HIPS AND PELVIS. NO RADIOGRAPHIC EVIDENCE OF ACUTE INJURY. Knee X-Ray 08/10/18 12:24 IMPRESSION: Nondisplaced fracture proximal left fibula. Chest X-Ray 08/10/18 12:25 IMPRESSION: NO ACUTE RADIOGRAPHIC FINDING IN THE CHEST. Assessment & Plan - Diagnosis (1) DIANNE (acute kidney injury) Is this a current diagnosis for this admission?: Yes Plan: Patient was noted to have had a creatinine of 0.8 sometime within the last 12 months per the emergency room physician. With her creatinine now at 2.16 a diagnosis of acute renal injury/acute renal failure is obvious. She has been admitted for IV fluid therapy to correct the dehydration component of her acute renal injury and for treatment of her hyperkalemia component Kayexalate and insulin have been given. Daily evaluation of her renal functions will be performed. Additional therapy be provided and/or consultation will be obtained as needed. 08/11/18: We will continue IV fluid hydration with half-normal saline at 167 mL/h. Follow daily lab work (CBC, BMP and magnesium level). (2) Diabetes mellitus type 2 in obese Is this a current diagnosis for this admission?: Yes Plan: Patient has been noncompliant with her diabetic therapy and with her significant renal failure is not appropriate to start her back on metformin. Patient will be treated with Lantus at 0.3 units/kg/day and sliding scale lispro before meals and at bedtime. A hemoglobin A1c will be checked in the morning and further treatment will be rendered as appropriate. 08/11/18: Hemoglobin A1c was 8.0 representing reasonably good diabetic control on her previous regimen. She will be continued on Lantus and sliding scale Humalog until such time as her renal function has improved and she may be placed back on oral hypoglycemic medications. Continue before meals and at bedtime blood sugars. (3) Hyperkalemia Is this a current diagnosis for this admission?: Yes Plan: Patient's potassium is 6.0 at the time of admission and she has been treated with insulin for her diabetes and will also be receiving Kayexalate 30 g p.o. x1. Her electrolytes be rechecked at 2200 tonight and again in the morning. Further treatment will be given in accordance with her laboratory values. IV fluids will be continued at 167 mL/h utilizing normal saline. 08/11/18: Potassium has fallen to 5.4 on this morning's lab and should continue to fall with continued IV fluid support utilizing half-normal saline at 167 mL/h. Follow daily lab work (BMP). (4) Generalized weakness Is this a current diagnosis for this admission?: Yes Plan: Patient's generalized weakness is most likely due to her lack of taking her appropriate medications as well as significant dehydration. She will be rehydrated and blood sugar will be controlled with reintroduction of a diet/ nutrition. She will be given physical therapy and occupational therapy evaluations for improvement in her strength and recovery of her ability to ambulate. Her pain and discomfort will be treated with morphine IV utilizing 2 mg for pain of 1-2/5, 3 mg IV for pain of 3-4/5 and 4 mg IV for pain of 5/5 all can be given on an as-needed basis every hour. IV fluids will be normal saline at 167 mL/h. Her laboratory values be reassessed every morning and as appropriate. 08/11/18: Patient's weakness has significantly improved with hydration and normalization of her electrolyte levels. She continues to have some weakness in her legs and her painful paresthesias persist. Rehydration will be continued and an oral diet for appropriate calories and nutrition is strongly encouraged. Oral fluids were also encouraged and she will continue to have intravenous morphine available on as-needed basis for pain. (5) Hyperesthesia Is this a current diagnosis for this admission?: Yes Plan: Patient complains of severe pain with even the slightest touch or brushing over the dorsum's of her feet and on her sacral and buttock areas. She is being treated with gabapentin for diabetic peripheral neuropathy and she states that this feels a lot like her peripheral neuropathy when it flares up. She also has had similar symptoms when she had a pilonidal cyst in the past. She has been noncompliant with her medication for several days and therefore is not taken her gabapentin. I have elected to begin treating her with Lyrica 50 mg p.o. twice daily as she reports that her gabapentin was less than satisfactorily effective. Therapy will need to be reassessed in approximately 1 -2 weeks with adjustments in dosage as required. 08/11/18: Patient's hyperesthesia is mildly improved today with Lyrica and hydration. She has used morphine several times for her discomfort and she is encouraged to use it as needed but not more than what is needed. Her current regimen will be continued and we will evaluate efficacy on a daily basis. (6) Hypothyroidism Qualifiers: Hypothyroidism type: unspecified Qualified Code(s): E03.9 - Hypothyroidism , unspecified Is this a current diagnosis for this admission?: Yes Plan: Patient has a history of hypothyroidism and is currently on levothyroxine therapy taking 200 mcg/day. She will be continued on this dose during her hospital course and a TSH will be assessed to evaluate the efficacy of her current treatment. 08/11/18: TSH shows a level of 0.12 which is extremely low. This would reflect an excessive thyroid replacement and as such her levothyroxine therapy will be decreased to 100 mcg daily. A follow-up of her TSH should be obtained in 3-6 weeks when she visits her primary care provider. (7) Hypertension Qualifiers: Hypertension type: essential hypertension Qualified Code(s): I10 - Essential (primary) hypertension Is this a current diagnosis for this admission?: Yes Plan: Patient gives a history of hypertension and has been noncompliant with her medications. She has no antihypertensive medication on her current medication list. Her blood pressure of the vital signs were monitored closely during her hospital course with appropriate intervention as needed. (8) Morbid obesity due to excess calories Is this a current diagnosis for this admission?: Yes Plan: Patient will be placed on a consistent carbohydrate no concentrated sweets diet of approximately 1500 -1600 izabella daily. This diet should provide gradual weight loss which would be most desirable for this patient's ongoing general health and well-being. Diet education and ongoing evaluation will be offered to the patient at the time of discharge or before. I have informed her that I would be placing her on an appropriate diet for her diabetes and weight loss. 08/11/18: Consultation with the registered dietitian for weight loss and diabetic education and diet management is placed today.
[2018-08-11] MEDS: 1/2 NORMAL SALINE 1,000 ML IV PRN ×2 (15:17→21:52)
[2018-08-11] MEDS: ONDANSETRON 4 MG TAB.RAPDIS PO PRN (21:54)
[2018-08-12] MEDS: 1/2 NORMAL SALINE 1,000 ML IV PRN ×3 (03:58→21:34)
[2018-08-12 05:14] LABS: ABSOLUTE EOSINOPHILS # (AUTO) 0.2 10^3/uL (0.0-0.6); ABSOLUTE LYMPHOCYTES (AUTO) 0.9 10^3/uL (0.5-4.7); ABSOLUTE NEUT (AUTO) 12.2 10^3/uL (1.7-8.2); BASOPHILS % (AUTO) 0.3 % (0-2); EOSINOPHILS % (AUTO) 1.5 % (0-6); HEMATOCRIT 30.1 % (36.0-47.0); HEMOGLOBIN 10.5 g/dL (12.0-15.5); LYMPHOCYTES % (AUTO) 6.1 % (13-45); MEAN CORPUSCULAR HEMOGLOBIN 32.2 pg (27.0-33.4); MEAN CORPUSCULAR HGB CONC 34.9 g/dL (32.0-36.0); MEAN CORPUSCULAR VOLUME 92 fl (80-97); PLATELET COUNT 203 10^3/uL (150-450); RED BLOOD COUNT 3.25 10^6/uL (3.72-5.28); RED CELL DISTRIBUTION WIDTH 15.1 % (11.5-14.0); SEGMENTED NEUTROPHILS % (AUTO) 85.1 % (42-78); TOTAL CELLS COUNTED % (AUTO) 100 %; WHITE BLOOD COUNT 14.4 10^3/uL (4.0-10.5)
[2018-08-12 05:33] LABS: ANION GAP 12 (5-19); BLOOD UREA NITROGEN 40 mg/dL (7-20); CALCIUM 8.3 mg/dL (8.4-10.2); CARBON DIOXIDE 11 mmol/L (22-30); CHLORIDE 114 mmol/L (98-107); GLUCOSE 120 mg/dL (75-110); POTASSIUM 4.6 mmol/L (3.6-5.0); SODIUM 137.2 mmol/L (137-145)
[2018-08-12] MEDS: LEVOTHYROXINE SODIUM 0.1 MG TABLET PO SCH (06:24)
[2018-08-12] MEDS: CEFAZOLIN 1 GM/D5W RTU 1 GM/50 ML RTUPB IV SCH ×2 (09:10→17:20)
[2018-08-12] MEDS: DOCUSATE SODIUM 100 MG CAPSULE PO SCH ×2 (09:10→17:20)
[2018-08-12] MEDS: INSULIN GLARGINE,HUM.REC.ANLOG 300 UNIT/3 ML INSULN.PEN SUBCUT SCH ×2 (09:10→22:28)
[2018-08-12] MEDS: PREGABALIN 50 MG CAPSULE PO SCH ×2 (09:10→17:20)
[2018-08-12] MEDS: FAMOTIDINE 20 MG TABLET PO SCH ×2 (09:10→22:00)
[2018-08-12] MEDS: ENOXAPARIN SODIUM INJ 40 MG/0.4 ML DISP.SYRIN SUBCUT SCH (09:11)
[2018-08-12] MEDS ORDERED: NORMAL SALINE 1000 ML 1,000 ML IV PRN (10:32)
[2018-08-12] MEDS ORDERED: NORMAL SALINE 1000 ML 1,000 ML IV ONE (16:00)
--- NOTE | 2018-08-12 16:51 | PDOC PROGRESS REPORT ---
Subjective Progress Note for:: 08/12/18 Subjective:: ALICIA GRAVES is a 58 year old female who presented to the emergency room with a 5-day history of progressively worsening generalized weakness. She admits that 5 days ago she she began feeling very poorly and discontinued taking all of her normal medications. She then noticed that she began feeling more progressively nauseated and had been unable to eat any food or consume much in the way of fluids. Over the next day or so she became so weak that she had fall multiple falls and was required to crawl in order to get around until she began using a wheelchair. She states that due to the fall she had pain in her legs and buttocks. She admits associated symptoms of intermittent dyspnea, severe discomfort in her buttocks and sacral region, severe discomfort in her feet over the dorsal aspects to any palpation or any contact of the dorsal surfaces. She also acknowledges occasional abdominal pain with nausea but no vomiting and occasional rectal pain without bleeding. She relates that she believes she is probably developing another pilonidal cyst though an evaluation of this area in the emergency room revealed no evidence of an emerging cyst. She denies dysuria, hematuria, fever, chills, headaches, syncope, palpitations, chest pain and rash. In the emergency room she was found to have a elevated creatinine at 2.16 with a potassium of 6.0 and a blood sugar of 245. Additional findings included an elevated white blood count of 14,300 and a depressed hemoglobin of 10.6. Because her creatinine elevation was significantly higher than the previous normal creatinine level within the last 12 months patient was admitted to the hospital for treatment of her acute renal injury/acute renal failure. 08/11/18: Alicia feels substantially better this morning with a significant improvement in her generalized weakness and decrease in her nausea and dyspnea. She continues to have pains in her feet and buttocks but is not currently having any abdominal pain. She was happy to hear that her white blood count was slightly reduced to 14,000 and her creatinine was decreased to 1.87 with a drop in her BUN to 46. I have encouraged her to be patient and realized that improvement will be slow and gradual as her hydration status improves she will probably feel considerably better. We will discontinue the normal saline IV and change to half-normal saline at 167 mL/h. We will continue to follow her daily laboratory tests (CBC, BMP and magnesium). She was also delighted to find out that her blood sugar has been in good control with her current regiment. She specifically asked to not have to take any more Kayexalate because of the bad taste and the resultant diarrhea. I informed her that her potassium level had decreased far enough that she should not have to have Kayexalate anymore unless she has any further arrhythmias like the one she had earlier this morning. Her rn cardiac cath strip showed a supraventricular/ junctional flutter wave pattern with 4-1 block lasting for more than 6 seconds. She will be continued on cardiac monitoring through the remainder of her hospital course. 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 08/12/18: Clean is somewhat somnolent today and was hypotensive just prior to my arrival. Her blood pressure has been running in the 70s-80s systolic this morning and with that she has been somewhat somnolent and/or intermittently responsive. She looks at me when I call her name and says what sounds like hello but is more of a grunting noise. She then becomes somnolent and her chin drops for short time and then she will gradually come around open her eyes and look around the room briefly before returning to sleep. She was treated with a fluid bolus of normal saline 1 L over 1 hour and had an excellent response with her blood pressure climbing nicely and be recorded in the 130s over 80s. This also seemed to resolve her somnolence and poor responsiveness. Patient however later in the afternoon developed another episode of hypotension again with a systolic blood pressure in the 70s and she was again given a fluid bolus of normal saline 1 L over 1 hour. At the time of this dictation the nurse responsible for the patient has not given me a further update on her condition. Reason For Visit: ACUTE RENAL FAILURE Physical Exam Vital Signs: Temp Pulse Resp BP Pulse Ox 97.4 F 66 20 139/57 H 92 08/12/18 11:09 08/12/18 11:09 08/12/18 11:09 08/12/18 11:09 08/12/18 11:09 Intake & Output 10/08/11/18 08/12/18 23:59 23:59 23:59 Intake Total 1250 5242 3250 Output Total 0 100 800 Balance 1250 5142 2450 Weight 118 kg 126.3 kg General appearance: PRESENT: no acute distress, morbidly obese - [id number], other - Somnolent/poorly responsive Head exam: PRESENT: atraumatic, normocephalic Eye exam: ABSENT: conjunctival injection, scleral icterus Ear exam: PRESENT: normal external ear exam. ABSENT: drainage Mouth exam: PRESENT: neck supple, tongue midline Neck exam: ABSENT: thyromegaly, tracheal deviation Respiratory exam: PRESENT: clear to auscultation karla, symmetrical, unlabored Cardiovascular exam: PRESENT: RRR. ABSENT: clicks, gallop, rubs Pulses: PRESENT: other - Radial pulses and dorsalis pedis pulses are 1/4 bilaterally. Vascular exam: PRESENT: normal capillary refill, pallor - Mild generalized pallor noted on today's evaluation GI/Abdominal exam: PRESENT: normal bowel sounds, soft Rectal exam: PRESENT: deferred Extremities exam: PRESENT: tenderness - Left knee lateral aspect with moderate tenderness on palpation (site of nondisplaced proximal fibular fracture). ABSENT: clubbing, joint swelling Musculoskeletal exam: ABSENT: deformity, dislocation Neurological exam: PRESENT: altered - Somnolent and somewhat poorly responsive, oriented to person - She responds to her name. ABSENT: oriented to place, oriented to time, oriented to situation Psychiatric exam: PRESENT: other - Somnolent and somewhat poorly responsive Skin exam: ABSENT: jaundice, rash, urticaria Results Laboratory Results: 08/12/18 04:38 08/12/18 04:38 08/12/18 08/12/18 04:38 04:38 WBC 14.4 H RBC 3.25 L Hgb 10.5 L Hct 30.1 L MCV 92 MCH 32.2 MCHC 34.9 RDW 15.1 H Plt Count 203 Seg Neutrophils % 85.1 H Lymphocytes % 6.1 L Monocytes % 7.0 Eosinophils % 1.5 Basophils % 0.3 Absolute Neutrophils 12.2 H Absolute Lymphocytes 0.9 Absolute Monocytes 1.0 Absolute Eosinophils 0.2 Absolute Basophils 0.0 Sodium 137.2 Potassium 4.6 Chloride 114 H Carbon Dioxide 11 L Anion Gap 12 BUN 40 H Creatinine 1.84 H Est GFR ( Amer) 34 L Est GFR (Non-Af Amer) 28 L Glucose 120 H Calcium 8.3 L Magnesium 2.1 08/11/18 04:05 NT-Pro-B Natriuret Pep 913 H Impressions: Hip X-Ray 08/10/18 12:23 IMPRESSION: NEGATIVE STUDY OF THE RIGHT AND LEFT HIPS AND PELVIS. NO RADIOGRAPHIC EVIDENCE OF ACUTE INJURY. Knee X-Ray 08/10/18 12:24 IMPRESSION: Nondisplaced fracture proximal left fibula. Chest X-Ray 08/10/18 12:25 IMPRESSION: NO ACUTE RADIOGRAPHIC FINDING IN THE CHEST. Assessment & Plan - Diagnosis (1) DIANNE (acute kidney injury) Is this a current diagnosis for this admission?: Yes Plan: Patient was noted to have had a creatinine of 0.8 sometime within the last 12 months per the emergency room physician. With her creatinine now at 2.16 a diagnosis of acute renal injury/acute renal failure is obvious. She has been admitted for IV fluid therapy to correct the dehydration component of her acute renal injury and for treatment of her hyperkalemia component Kayexalate and insulin have been given. Daily evaluation of her renal functions will be performed. Additional therapy be provided and/or consultation will be obtained as needed. 08/11/18: We will continue IV fluid hydration with half-normal saline at 167 mL/h. Follow daily lab work (CBC, BMP and magnesium level). 08/12/18: Patient is received 2 1000 mL IV fluid boluses of normal saline today in addition to her regular IV fluids. We will monitor her electrolytes closely and a Wynne catheter will be placed to adequately monitor her output as compared to her input. (2) Diabetes mellitus type 2 in obese Is this a current diagnosis for this admission?: Yes Plan: Patient has been noncompliant with her diabetic therapy and with her significant renal failure is not appropriate to start her back on metformin. Patient will be treated with Lantus at 0.3 units/kg/day and sliding scale lispro before meals and at bedtime. A hemoglobin A1c will be checked in the morning and further treatment will be rendered as appropriate. 08/11/18: Hemoglobin A1c was 8.0 representing reasonably good diabetic control on her previous regimen. She will be continued on Lantus and sliding scale Humalog until such time as her renal function has improved and she may be placed back on oral hypoglycemic medications. Continue before meals and at bedtime blood sugars. 08/12/18: Patient's blood sugar has been has been very well controlled throughout the last 24 hours and no changes will be made in her current regimen. Continue before meals and at bedtime blood sugar measurements and sliding scale as needed. (3) Hyperkalemia Is this a current diagnosis for this admission?: Yes Plan: Patient's potassium is 6.0 at the time of admission and she has been treated with insulin for her diabetes and will also be receiving Kayexalate 30 g p.o. x1. Her electrolytes be rechecked at 2200 tonight and again in the morning. Further treatment will be given in accordance with her laboratory values. IV fluids will be continued at 167 mL/h utilizing normal saline. 08/11/18: Potassium has fallen to 5.4 on this morning's lab and should continue to fall with continued IV fluid support utilizing half-normal saline at 167 mL/h. Follow daily lab work (BMP). 08/12/18: Patient's potassium is now within the normal range and will be followed on a daily basis. (4) Generalized weakness Is this a current diagnosis for this admission?: Yes Plan: Patient's generalized weakness is most likely due to her lack of taking her appropriate medications as well as significant dehydration. She will be rehydrated and blood sugar will be controlled with reintroduction of a diet/ nutrition. She will be given physical therapy and occupational therapy evaluations for improvement in her strength and recovery of her ability to ambulate. Her pain and discomfort will be treated with morphine IV utilizing 2 mg for pain of 1-2/5, 3 mg IV for pain of 3-4/5 and 4 mg IV for pain of 5/5 all can be given on an as-needed basis every hour. IV fluids will be normal saline at 167 mL/h. Her laboratory values be reassessed every morning and as appropriate. 08/11/18: Patient's weakness has significantly improved with hydration and normalization of her electrolyte levels. She continues to have some weakness in her legs and her painful paresthesias persist. Rehydration will be continued and an oral diet for appropriate calories and nutrition is strongly encouraged. Oral fluids were also encouraged and she will continue to have intravenous morphine available on as-needed basis for pain. 08/12/18: Patient's weakness cannot be adequately assessed today at the time of my visit because of her somnolence and poor responsiveness. I will reassess patient at another time when she is able to be alert and responsive. (5) Hyperesthesia Is this a current diagnosis for this admission?: Yes Plan: Patient complains of severe pain with even the slightest touch or brushing over the dorsum's of her feet and on her sacral and buttock areas. She is being treated with gabapentin for diabetic peripheral neuropathy and she states that this feels a lot like her peripheral neuropathy when it flares up. She also has had similar symptoms when she had a pilonidal cyst in the past. She has been noncompliant with her medication for several days and therefore is not taken her gabapentin. I have elected to begin treating her with Lyrica 50 mg p.o. twice daily as she reports that her gabapentin was less than satisfactorily effective. Therapy will need to be reassessed in approximately 1 -2 weeks with adjustments in dosage as required. 08/11/18: Patient's hyperesthesia is mildly improved today with Lyrica and hydration. She has used morphine several times for her discomfort and she is encouraged to use it as needed but not more than what is needed. Her current regimen will be continued and we will evaluate efficacy on a daily basis. 08/12/18: Patient's hyperesthesia is not assessed today as the patient is not responsive enough to provide a meaningful subjective evaluation. I will reassess patient at another time in the future when she is more responsive and alert. (6) Hypothyroidism Qualifiers: Hypothyroidism type: unspecified Qualified Code(s): E03.9 - Hypothyroidism , unspecified Is this a current diagnosis for this admission?: Yes Plan: Patient has a history of hypothyroidism and is currently on levothyroxine therapy taking 200 mcg/day. She will be continued on this dose during her hospital course and a TSH will be assessed to evaluate the efficacy of her current treatment. 08/11/18: TSH shows a level of 0.12 which is extremely low. This would reflect an excessive thyroid replacement and as such her levothyroxine therapy will be decreased to 100 mcg daily. A follow-up of her TSH should be obtained in 3-6 weeks when she visits her primary care provider. (7) Hypertension Qualifiers: Hypertension type: essential hypertension Qualified Code(s): I10 - Essential (primary) hypertension Is this a current diagnosis for this admission?: Yes Plan: Patient gives a history of hypertension and has been noncompliant with her medications. She has no antihypertensive medication on her current medication list. Her blood pressure of the vital signs were monitored closely during her hospital course with appropriate intervention as needed. (8) Morbid obesity due to excess calories Is this a current diagnosis for this admission?: Yes Plan: Patient will be placed on a consistent carbohydrate no concentrated sweets diet of approximately 1500 -1600 izabella daily. This diet should provide gradual weight loss which would be most desirable for this patient's ongoing general health and well-being. Diet education and ongoing evaluation will be offered to the patient at the time of discharge or before. I have informed her that I would be placing her on an appropriate diet for her diabetes and weight loss. 08/11/18: Consultation with the registered dietitian for weight loss and diabetic education and diet management is placed today. - Time Time Spent with patient: 35 or more minutes
[2018-08-12] MEDS: ONDANSETRON 4 MG TAB.RAPDIS PO PRN (22:29)
[2018-08-12] MEDS: MORPHINE SULFATE 10 MG/ML INJ IV PRN (22:30)
[2018-08-13] MEDS: CEFAZOLIN 1 GM/D5W RTU 1 GM/50 ML RTUPB IV SCH (02:51)
[2018-08-13] MEDS: 1/2 NORMAL SALINE 1,000 ML IV PRN ×2 (04:11→11:05)
[2018-08-13 05:22] LABS: HEMATOCRIT 26.9 % (36.0-47.0); HEMOGLOBIN 9.4 g/dL (12.0-15.5); MEAN CORPUSCULAR HEMOGLOBIN 32.2 pg (27.0-33.4); MEAN CORPUSCULAR HGB CONC 34.9 g/dL (32.0-36.0); MEAN CORPUSCULAR VOLUME 92 fl (80-97); PLATELET COUNT 188 10^3/uL (150-450); RED BLOOD COUNT 2.92 10^6/uL (3.72-5.28); RED CELL DISTRIBUTION WIDTH 15.1 % (11.5-14.0); WHITE BLOOD COUNT 26.1 10^3/uL (4.0-10.5)
[2018-08-13 05:43] LABS: ANION GAP 14 (5-19); BLOOD UREA NITROGEN 43 mg/dL (7-20); CALCIUM 7.8 mg/dL (8.4-10.2); CHLORIDE 111 mmol/L (98-107); GLUCOSE 92 mg/dL (75-110); POTASSIUM 4.4 mmol/L (3.6-5.0); SODIUM 134.1 mmol/L (137-145)
[2018-08-13 05:52] LABS: CARBON DIOXIDE 9 mmol/L (22-30)
[2018-08-13 05:59] LABS: ABSOLUTE LYMPHOCYTES# (MANUAL) 1.3 10^3/uL (0.5-4.7); ABSOLUTE NEUTROPHILS# (MANUAL) 23.8 10^3/uL (1.7-8.2); BASOPHILS % (MANUAL) 0 % (0-2); EOSINOPHILS % (MANUAL) 0 % (0-6); LYMPHOCYTES % (MANUAL) 5 % (13-45); MONOCYTES % (MANUAL) 4 % (3-13); SEGMENTED NEUTROPHILS % (MAN) 91 % (42-78); TOTAL CELLS COUNTED 100
[2018-08-13 06:01] LABS: ANISOCYTOSIS 1+; PLATELET COMMENT ADEQUATE; POLYCHROMASIA 1+
[2018-08-13] MEDS: LEVOTHYROXINE SODIUM 0.1 MG TABLET PO SCH (06:20)
[2018-08-13] MEDS ORDERED: DEXTROSE 5%-WATER 1000 ML 1,000 ML with SODIUM BICARBONATE 150 MEQ IV PRN ×2 (07:28)
[2018-08-13] MEDS ORDERED: ERTAPENEM SODIUM INJ 1 GM VIAL IV ONE (07:28)
[2018-08-13] MEDS ORDERED: ERTAPENEM SODIUM INJ 1 GM VIAL IV SCH (07:32)
[2018-08-13] MEDS ORDERED: ERTAPENEM SODIUM 1 GM in NORMAL SALINE 50 ML IV ONE (07:45)
[2018-08-13] MEDS: DOCUSATE SODIUM 100 MG CAPSULE PO SCH ×2 (11:01→18:39)
[2018-08-13] MEDS: FAMOTIDINE 20 MG TABLET PO SCH ×2 (11:01→21:48)
[2018-08-13] MEDS: PREGABALIN 50 MG CAPSULE PO SCH ×2 (11:01→18:39)
[2018-08-13] MEDS: ENOXAPARIN SODIUM INJ 40 MG/0.4 ML DISP.SYRIN SUBCUT SCH (11:05)
--- NOTE | 2018-08-13 11:48 | PDOC PROGRESS REPORT ---
Subjective Progress Note for:: 08/13/18 Subjective:: ALICIA GRAVES is a 58 year old female who presented to the emergency room with a 5-day history of progressively worsening generalized weakness. She admits that 5 days ago she she began feeling very poorly and discontinued taking all of her normal medications. She then noticed that she began feeling more progressively nauseated and had been unable to eat any food or consume much in the way of fluids. Over the next day or so she became so weak that she had fall multiple falls and was required to crawl in order to get around until she began using a wheelchair. She states that due to the fall she had pain in her legs and buttocks. She admits associated symptoms of intermittent dyspnea, severe discomfort in her buttocks and sacral region, severe discomfort in her feet over the dorsal aspects to any palpation or any contact of the dorsal surfaces. She also acknowledges occasional abdominal pain with nausea but no vomiting and occasional rectal pain without bleeding. She relates that she believes she is probably developing another pilonidal cyst though an evaluation of this area in the emergency room revealed no evidence of an emerging cyst. She denies dysuria, hematuria, fever, chills, headaches, syncope, palpitations, chest pain and rash. In the emergency room she was found to have a elevated creatinine at 2.16 with a potassium of 6.0 and a blood sugar of 245. Additional findings included an elevated white blood count of 14,300 and a depressed hemoglobin of 10.6. Because her creatinine elevation was significantly higher than the previous normal creatinine level within the last 12 months patient was admitted to the hospital for treatment of her acute renal injury/acute renal failure. 08/11/18: Alicia feels substantially better this morning with a significant improvement in her generalized weakness and decrease in her nausea and dyspnea. She continues to have pains in her feet and buttocks but is not currently having any abdominal pain. She was happy to hear that her white blood count was slightly reduced to 14,000 and her creatinine was decreased to 1.87 with a drop in her BUN to 46. I have encouraged her to be patient and realized that improvement will be slow and gradual as her hydration status improves she will probably feel considerably better. We will discontinue the normal saline IV and change to half-normal saline at 167 mL/h. We will continue to follow her daily laboratory tests (CBC, BMP and magnesium). She was also delighted to find out that her blood sugar has been in good control with her current regiment. She specifically asked to not have to take any more Kayexalate because of the bad taste and the resultant diarrhea. I informed her that her potassium level had decreased far enough that she should not have to have Kayexalate anymore unless she has any further arrhythmias like the one she had earlier this morning. Her compressor station operator strip showed a supraventricular/ junctional flutter wave pattern with 4-1 block lasting for more than 6 seconds. She will be continued on cardiac monitoring through the remainder of her hospital course. 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 08/12/18: Alicia is somewhat somnolent today and was hypotensive just prior to my arrival. Her blood pressure has been running in the 70s-80s systolic this morning and with that she has been somewhat somnolent and/or intermittently responsive. She looks at me when I call her name and says what sounds like hello but is more of a grunting noise. She then becomes somnolent and her chin drops for short time and then she will gradually come around open her eyes and look around the room briefly before returning to sleep. She was treated with a fluid bolus of normal saline 1 L over 1 hour and had an excellent response with her blood pressure climbing nicely and be recorded in the 130s over 80s. This also seemed to resolve her somnolence and poor responsiveness. Patient however later in the afternoon developed another episode of hypotension again with a systolic blood pressure in the 70s and she was again given a fluid bolus of normal saline 1 L over 1 hour. At the time of this dictation the nurse responsible for the patient has not given me a further update on her condition. I checked on her blood pressure after completing this note and found that her blood pressure had improved to the high 90s and low 100s systolic with the fluid bolus. Consideration for using dopamine or dobutamine as a pressor agent was entertained but not employed, as her blood pressure remained reasonably stable though relatively hypotensive. At this point I believe that the cause of the hypotension is most likely her urinary tract infection with a probable incipient sepsis. 08/13/18: Alicia is much more alert today but continues to have relative hypotension despite extensive volume replacement. She is also noted to have a progressively worsening metabolic acidosis and declining renal function. She continues to complain of pain in her sacral and buttock cleft area which seems to be worsening rather than improving. Her white blood count increased to over 24,000 overnight and because of the cumulative number of negative changes she was moved to the ICU for further care. She is in agreement with the move as she understands that her condition is not improving as we discussed and that we may be able to accomplish more significant improvement with care in the ICU. On exam today her chest was clear and she was not found to have any significant peripheral edema. Her intragluteal cleft was examined and shows a linear ulceration/fissure within the intragluteal cleft extending in depth to the sub- cutaneous fat. This would be a stage III decubitus ulceration. We will treat this ulceration with Bactroban ointment topically twice a day and will otherwise try to keep it dry with a gauze dressing that may provide some cushion and reduce her discomfort. She will continue to use IV morphine for pain control as required. We will treat her metabolic acidosis with a bicarbonate drip and I have empirically changed her antibiotics to Invanz as I suspect an early gram-negative (E. coli) sepsis as a possible etiology of her hypotension and declining renal function as well as her metabolic acidosis. ABGs have been ordered and I will continue to follow her daily labs. Reason For Visit: ACUTE RENAL FAILURE Physical Exam Vital Signs: Temp Pulse Resp BP Pulse Ox 98.2 F 75 11 L 104/50 L 98 08/13/18 09:15 08/13/18 09:15 08/13/18 09:15 08/13/18 09:15 08/13/18 09:15 Intake & Output 08/11/18 08/12/18 08/13/18 23:59 23:59 23:59 Intake Total 5242 5550 1050 Output Total 100 1230 125 Balance 5142 4320 925 Weight 118 kg 126.3 kg 129.3 kg General appearance: PRESENT: no acute distress, cooperative, morbidly obese Head exam: PRESENT: atraumatic, normocephalic Eye exam: PRESENT: conjunctiva pink. ABSENT: periorbital swelling, scleral icterus Ear exam: PRESENT: normal external ear exam. ABSENT: drainage Mouth exam: PRESENT: neck supple, tongue midline Neck exam: ABSENT: JVD, thyromegaly, tracheal deviation Respiratory exam: PRESENT: clear to auscultation karla, symmetrical, unlabored Cardiovascular exam: PRESENT: RRR. ABSENT: clicks, gallop, rubs Pulses: PRESENT: normal radial pulses, normal dorsalis pedis pul Vascular exam: PRESENT: normal capillary refill. ABSENT: pallor GI/Abdominal exam: PRESENT: normal bowel sounds, soft Rectal exam: PRESENT: deferred Extremities exam: ABSENT: clubbing, joint swelling, pedal edema Musculoskeletal exam: PRESENT: tenderness - Left lateral knee region with local tenderness to palpation over the proximal fibula.. ABSENT: deformity, dislocation Neurological exam: PRESENT: alert, oriented to person, oriented to place, oriented to time, oriented to situation, CN II-XII grossly intact. ABSENT: motor sensory deficit Psychiatric exam: PRESENT: appropriate affect, normal mood Skin exam: PRESENT: other - There is a 3 cm linear fissure in the intergluteal cleft with mild local erythema and exquisite tenderness to palpation. The depth of the fissure is to the subcutaneous fat, wound staging: stage III decubitus.. ABSENT: jaundice, rash, urticaria Results Laboratory Results: 08/13/18 04:28 08/13/18 04:28 08/13/18 08/13/18 08/13/18 04:28 04:28 09:16 WBC 26.1 H RBC 2.92 L Hgb 9.4 L Hct 26.9 L MCV 92 MCH 32.2 MCHC 34.9 RDW 15.1 H Plt Count 188 Seg Neutrophils % Not Reportable Lymphocytes % Not Reportable Monocytes % Not Reportable Eosinophils % Not Reportable Basophils % Not Reportable Absolute Neutrophils Not Reportable Absolute Lymphocytes Not Reportable Absolute Monocytes Not Reportable Absolute Eosinophils Not Reportable Absolute Basophils Not Reportable Sodium 134.1 L Potassium 4.4 Chloride 111 H Carbon Dioxide 9 L* Anion Gap 14 BUN 43 H Creatinine 2.44 H Est GFR ( Amer) 24 L Est GFR (Non-Af Amer) 20 L Glucose 92 Lactic Acid 1.1 Calcium 7.8 L Magnesium 1.9 08/11/18 04:05 NT-Pro-B Natriuret Pep 913 H Impressions: Hip X-Ray 10/18/18 12:23 IMPRESSION: NEGATIVE STUDY OF THE RIGHT AND LEFT HIPS AND PELVIS. NO RADIOGRAPHIC EVIDENCE OF ACUTE INJURY. Knee X-Ray 08/10/18 12:24 IMPRESSION: Nondisplaced fracture proximal left fibula. Chest X-Ray 08/10/18 12:25 IMPRESSION: NO ACUTE RADIOGRAPHIC FINDING IN THE CHEST. Assessment & Plan - Diagnosis (1) Sepsis due to Escherichia coli with acute renal failure Is this a current diagnosis for this admission?: Yes Plan: 08/13/18: The patient's symptomology and laboratory findings support the diagnosis of sepsis. She has been found to have a culture positive E. coli urinary tract infection as her source of sepsis. Her white blood count has dramatically increased to greater than 26,000+, she has had significant hypotension requiring extensive volume replacement to provide at best intermediate improvement, she has developed a progressively worsening metabolic acidosis and lastly she has developed worsening acute renal failure. With the criteria for sepsis being met her antibiotic therapy was changed to Invanz 1 g daily and she was moved to the ICU for more intensive observation of her hypotension and renal failure. Her lactic acid was noted to be normal and thus is not useful as a marker in her sepsis. I will continue to follow daily lab work and I will obtain ABGs today with further determinations of her ABGs as necessary for diagnostic purposes. (2) DIANNE (acute kidney injury) Is this a current diagnosis for this admission?: Yes Plan: Patient was noted to have had a creatinine of 0.8 sometime within the last 12 months per the emergency room physician. With her creatinine now at 2.16 a diagnosis of acute renal injury/acute renal failure is obvious. She has been admitted for IV fluid therapy to correct the dehydration component of her acute renal injury and for treatment of her hyperkalemia component Kayexalate and insulin have been given. Daily evaluation of her renal functions will be performed. Additional therapy be provided and/or consultation will be obtained as needed. 08/11/18: We will continue IV fluid hydration with half-normal saline at 167 mL/h. Follow daily lab work (CBC, BMP and magnesium level). 08/12/18: Patient has received 2 1000 mL IV fluid boluses of normal saline today in addition to her regular IV fluids. We will monitor her electrolytes closely and a Wynne catheter will be placed to adequately monitor her output as compared to her input. 08/13/18: Alicia's renal functions have worsened overnight with her creatinine rising above 2.4 additionally she has remained relatively hypotensive despite extensive volume replacement. She is also noted to have a significant metabolic acidosis that is worsening rather than improving. She is started today on a bicarbonate drip for replenishment of her bicarb deficit and improvement in her acid base balance. Her urinary tract infection may be playing a role in her acute kidney injury and as such her E. coli UTI is going to be treated with Invanz 1 g IV daily with the first dose stat. I will continue to follow her daily lab work and I will obtain ABGs today for further evaluation of her metabolic acidosis as it pertains to her acute kidney injury. (3) Escherichia coli urinary tract infection Is this a current diagnosis for this admission?: Yes Plan: Patient's urinary tract infection has been identified as a pansensitive E. coli. Her initial treatment was with Ancef however with her worsening status reflected in her increased white blood count 26,000+, worsening renal function with creatinine rising to above 2.4, persistent relative hypotension and worsening metabolic acidosis, it was felt that she was probably in the incipient stages of sepsis. All these findings would be consistent with sepsis and as such she was moved to the intensive care unit and her antibiotics were changed to Invanz 1 g IV daily. If her hypotension worsens pressor support will be given. (4) Metabolic acidosis Is this a current diagnosis for this admission?: Yes Plan: 08/13/18: Ms. Coreys metabolic acidosis has worsened significantly over the last 24-48 hours. She has been moved to the intensive care unit in [facility] been started on a bicarbonate drip to help correct her bicarbonate deficit and to balance her metabolic status. Her daily laboratory work will be followed closely and adjustments to her bicarbonate drip will be made as appropriate based upon intraday and AM lab work. (5) Diabetes mellitus type 2 in obese Is this a current diagnosis for this admission?: Yes Plan: Patient has been noncompliant with her diabetic therapy and with her significant renal failure is not appropriate to start her back on metformin. Patient will be treated with Lantus at 0.3 units/kg/day and sliding scale lispro before meals and at bedtime. A hemoglobin A1c will be checked in the morning and further treatment will be rendered as appropriate. 08/11/18: Hemoglobin A1c was 8.0 representing reasonably good diabetic control on her previous regimen. She will be continued on Lantus and sliding scale Humalog until such time as her renal function has improved and she may be placed back on oral hypoglycemic medications. Continue before meals and at bedtime blood sugars. 08/12/18: Patient's blood sugar has been has been very well controlled throughout the last 24 hours and no changes will be made in her current regimen. Continue before meals and at bedtime blood sugar measurements and sliding scale as needed. 08/13/18: Alicia's blood sugar continues to be reasonably well-controlled with her current regimen. We will follow her before meals and at bedtime blood sugars and daily lab work for ongoing assessment with changes made to her regiment as indicated. (6) Decubitus ulcer of sacral region, stage 3 Is this a current diagnosis for this admission?: Yes Plan: 08/13/18: Patient's decubitus ulcer of her sacrum will be addressed using Bactroban ointment applied twice daily with a Telfa and gauze dressing and additional gauze padding to help provide cushion and hopefully comfort for the patient's benefit. Her wound will be reevaluated on an as-needed basis per ICU nursing staff input. (7) Generalized weakness Is this a current diagnosis for this admission?: Yes Plan: Patient's generalized weakness is most likely due to her lack of taking her appropriate medications as well as significant dehydration. She will be rehydrated and blood sugar will be controlled with reintroduction of a diet/ nutrition. She will be given physical therapy and occupational therapy evaluations for improvement in her strength and recovery of her ability to ambulate. Her pain and discomfort will be treated with morphine IV utilizing 2 mg for pain of 1-2/5, 3 mg IV for pain of 3-4/5 and 4 mg IV for pain of 5/5 all can be given on an as-needed basis every hour. IV fluids will be normal saline at 167 mL/h. Her laboratory values be reassessed every morning and as appropriate. 08/11/18: Patient's weakness has significantly improved with hydration and normalization of her electrolyte levels. She continues to have some weakness in her legs and her painful paresthesias persist. Rehydration will be continued and an oral diet for appropriate calories and nutrition is strongly encouraged. Oral fluids were also encouraged and she will continue to have intravenous morphine available on as-needed basis for pain. 08/12/18: Patient's weakness cannot be adequately assessed today at the time of my visit because of her somnolence and poor responsiveness. I will reassess patient at another time when she is able to be alert and responsive. 08/13/18: Alicia's weakness is minimally improved on today's evaluation. Overall she is much better hydrated and she is much more alert and relaxed but she continues to be relatively weak. A physical therapy consult will be obtained as will Occupational Therapy such that the patient may require posthospitalization rehabilitation. (8) Hyperesthesia Is this a current diagnosis for this admission?: Yes Plan: Patient complains of severe pain with even the slightest touch or brushing over the dorsum's of her feet and on her sacral and buttock areas. She is being treated with gabapentin for diabetic peripheral neuropathy and she states that this feels a lot like her peripheral neuropathy when it flares up. She also has had similar symptoms when she had a pilonidal cyst in the past. She has been noncompliant with her medication for several days and therefore is not taken her gabapentin. I have elected to begin treating her with Lyrica 50 mg p.o. twice daily as she reports that her gabapentin was less than satisfactorily effective. Therapy will need to be reassessed in approximately 1 -2 weeks with adjustments in dosage as required. 08/11/18: Patient's hyperesthesia is mildly improved today with Lyrica and hydration. She has used morphine several times for her discomfort and she is encouraged to use it as needed but not more than what is needed. Her current regimen will be continued and we will evaluate efficacy on a daily basis. 08/12/18: Patient's hyperesthesia is not assessed today as the patient is not responsive enough to provide a meaningful subjective evaluation. I will reassess patient at another time in the future when she is more responsive and alert. 08/13/18: Alicia's hyperesthesia is significantly improved but she continues to have significant focal pain in her intergluteal/sacral area and in her left lateral knee and to a lesser degree in her right anteromedial knee. Thus her hyperesthesia has essentially resolved at this point in her care. (9) Hyperkalemia Is this a current diagnosis for this admission?: Yes Plan: Patient's potassium is 6.0 at the time of admission and she has been treated with insulin for her diabetes and will also be receiving Kayexalate 30 g p.o. x1. Her electrolytes be rechecked at 2200 tonight and again in the morning. Further treatment will be given in accordance with her laboratory values. IV fluids will be continued at 167 mL/h utilizing normal saline. 08/11/18: Potassium has fallen to 5.4 on this morning's lab and should continue to fall with continued IV fluid support utilizing half-normal saline at 167 mL/h. Follow daily lab work (BMP). 08/12/18: Patient's potassium is now within the normal range and will be followed on a daily basis. (10) Hypothyroidism Qualifiers: Hypothyroidism type: unspecified Qualified Code(s): E03.9 - Hypothyroidism , unspecified Is this a current diagnosis for this admission?: Yes Plan: Patient has a history of hypothyroidism and is currently on levothyroxine therapy taking 200 mcg/day. She will be continued on this dose during her hospital course and a TSH will be assessed to evaluate the efficacy of her current treatment. 08/11/18: TSH shows a level of 0.12 which is extremely low. This would reflect an excessive thyroid replacement and as such her levothyroxine therapy will be decreased to 100 mcg daily. A follow-up of her TSH should be obtained in 3-6 weeks when she visits her primary care provider. (11) Hypertension Qualifiers: Hypertension type: essential hypertension Qualified Code(s): I10 - Essential (primary) hypertension Is this a current diagnosis for this admission?: Yes Plan: Patient gives a history of hypertension and has been noncompliant with her medications. She has no antihypertensive medication on her current medication list. Her blood pressure of the vital signs were monitored closely during her hospital course with appropriate intervention as needed. (12) Morbid obesity due to excess calories Is this a current diagnosis for this admission?: Yes Plan: Patient will be placed on a consistent carbohydrate no concentrated sweets diet of approximately 1500 -1600 izabella daily. This diet should provide gradual weight loss which would be most desirable for this patient's ongoing general health and well-being. Diet education and ongoing evaluation will be offered to the patient at the time of discharge or before. I have informed her that I would be placing her on an appropriate diet for her diabetes and weight loss. 08/11/18: Consultation with the registered dietitian for weight loss and diabetic education and diet management is placed today. - Time Time Spent with patient: 35 or more minutes Anticipated discharge: SNF
[2018-08-13] MEDS ORDERED: 1/2 NORMAL SALINE 1,000 ML IV PRN (11:53)
[2018-08-13 12:06] LABS: ARTERIAL BLOOD BASE EXCESS -12.5 mmol/L; ARTERIAL BLOOD H2CO3 0.72 mmol/L (1.05-1.35); ARTERIAL BLOOD O2 SATURATION 96.7 % (94-98); ARTERIAL BLOOD PCO2 23.9 mmHg (35-45); ARTERIAL BLOOD PH 7.32 (7.35-7.45); ARTERIAL BLOOD TOTAL CO2 12.7 mmol/L (21-25)
[2018-08-13 12:11] LABS: ARTERIAL BLOOD FIO2 ROOM AIR
[2018-08-13] MEDS: INSULIN GLARGINE,HUM.REC.ANLOG 300 UNIT/3 ML INSULN.PEN SUBCUT SCH ×2 (12:32→21:46)
[2018-08-13] MEDS: DEXTROSE 5%-WATER 1000 ML 1,000 ML with SODIUM BICARBONATE 150 MEQ IV PRN ×2 (13:39)
[2018-08-13] MEDS: MORPHINE SULFATE 10 MG/ML INJ IV PRN (14:19)
[2018-08-13] MEDS: DEXTROSE 5%-WATER 250 ML with NOREPINEPHRINE BITARTRATE 4 MG IV PRN ×2 (20:20)
[2018-08-13 20:41] LABS: ABSOLUTE EOSINOPHILS # (AUTO) 0.1 10^3/uL (0.0-0.6); ABSOLUTE LYMPHOCYTES (AUTO) 0.3 10^3/uL (0.5-4.7); ABSOLUTE NEUT (AUTO) 3.3 10^3/uL (1.7-8.2); BASOPHILS % (AUTO) 0.4 % (0-2); EOSINOPHILS % (AUTO) 1.6 % (0-6); HEMATOCRIT 30.7 % (36.0-47.0); HEMOGLOBIN 10.5 g/dL (12.0-15.5); LYMPHOCYTES % (AUTO) 8.4 % (13-45); MEAN CORPUSCULAR HEMOGLOBIN 32.3 pg (27.0-33.4); MEAN CORPUSCULAR HGB CONC 34.3 g/dL (32.0-36.0); MEAN CORPUSCULAR VOLUME 94 fl (80-97); MONOCYTES % (AUTO) 0.9 % (3-13); PLATELET COUNT 169 10^3/uL (150-450); RED BLOOD COUNT 3.26 10^6/uL (3.72-5.28); RED CELL DISTRIBUTION WIDTH 15.3 % (11.5-14.0); SEGMENTED NEUTROPHILS % (AUTO) 88.7 % (42-78); TOTAL CELLS COUNTED % (AUTO) 100 %; WHITE BLOOD COUNT 3.7 10^3/uL (4.0-10.5)
[2018-08-13 20:42] LABS: ARTERIAL BLOOD BASE EXCESS -12.8 mmol/L; ARTERIAL BLOOD H2CO3 0.61 mmol/L (1.05-1.35); ARTERIAL BLOOD HCO3 11.3 mmol/L (20-24); ARTERIAL BLOOD O2 SATURATION 97.7 % (94-98); ARTERIAL BLOOD PH 7.36 (7.35-7.45); ARTERIAL BLOOD PO2 102.6 mmHg (80-100); ARTERIAL BLOOD TOTAL CO2 11.9 mmol/L (21-25)
[2018-08-13 20:45] LABS: ARTERIAL BLOOD FIO2 ROOM AIR
[2018-08-13 20:47] LABS: ARTERIAL BLOOD PCO2 20.3 mmHg (35-45)
--- NOTE | 2018-08-13 20:59 | RADIOLOGY REPORT (SQ) ---
EXAM DESCRIPTION: CHEST SINGLE VIEW COMPLETED DATE/TIME: 08/13/2018 8:43 pm REASON FOR STUDY: resp. distress COMPARISON: 08/10/2018 EXAM PARAMETERS: NUMBER OF VIEWS: One view. TECHNIQUE: Single frontal radiographic view of the chest acquired. RADIATION DOSE: NA LIMITATIONS: None. FINDINGS: LUNGS AND PLEURA: No opacities, masses or pneumothorax. No pleural effusion. MEDIASTINUM AND HILAR STRUCTURES: No masses. Contour normal. HEART AND VASCULAR STRUCTURES: Heart normal in size. Normal vasculature. BONES: No acute findings. HARDWARE: None in the chest. OTHER: No other significant finding. IMPRESSION: NO ACUTE RADIOGRAPHIC FINDING IN THE CHEST. TECHNICAL DOCUMENTATION: JOB ID: [id number] [employer]- All Rights Reserved Reading location - IP/workstation name: [email or web address]
[2018-08-13 21:13] LABS: ALANINE AMINOTRANSFERASE 47 U/L (9-52); ALBUMIN 2.3 g/dL (3.5-5.0); ALKALINE PHOSPHATASE 375 U/L (38-126); ANION GAP 11 (5-19); ASPARTATE AMINO TRANSFERASE 198 U/L (14-36); BILIRUBIN,DIRECT 2.3 mg/dL (0.0-0.4); BILIRUBIN,TOTAL 2.8 mg/dL (0.2-1.3); BLOOD UREA NITROGEN 43 mg/dL (7-20); CALCIUM 7.8 mg/dL (8.4-10.2); CARBON DIOXIDE 12 mmol/L (22-30); CHLORIDE 111 mmol/L (98-107); GLUCOSE 62 mg/dL (75-110); SODIUM 134.4 mmol/L (137-145); TOTAL PROTEIN 6.3 g/dL (6.3-8.2)
[2018-08-13] MEDS ORDERED: VANCOMYCIN HCL 0 MG in DEXTROSE 5%-WATER 250 ML IV NR (21:15)
[2018-08-13] MEDS ORDERED: VANCOMYCIN HCL INJ 1000 MG VIAL IV PRN (21:24)
[2018-08-13] MEDS ORDERED: AMPICILLIN SOD/SULBACTAM 3 GM VIAL IV PRN (21:42)
[2018-08-13] MEDS ORDERED: VANCOMYCIN HCL 2,500 MG in DEXTROSE 5%-WATER 500 ML IV ONE (22:00)
[2018-08-13] MEDS ORDERED: AMPICILLIN SODIUM/SULBACTAM NA 3 GM in NORMAL SALINE 100 ML IV ONE (22:00)
[2018-08-13] MEDS ORDERED: NOREPINEPHRINE BITARTRATE INJ/PF 4 MG/4 ML SDV IV ONE (22:00)
[2018-08-13] MEDS ORDERED: AMPICILLIN SOD/SULBACTAM 3 GM VIAL ONE (22:04)
[2018-08-13] MEDS ORDERED: LIDOCAINE 1% INJ-PF (10 MG/ML) 30 ML SDV ONE (22:05)
[2018-08-13] MEDS ORDERED: VASOPRESSIN INJ 20 UNIT/1 ML VIAL ONE (22:06)
[2018-08-13] MEDS: DEXTROSE 5%-WATER 250 ML with VASOPRESSIN 100 UNIT IV PRN ×2 (22:39)
--- NOTE | 2018-08-13 22:41 | Operative Report ---
Nonrecallable Operative Report DATE OF SURGERY: 08/13/18 PREOPERATIVE DIAGNOSIS: need of IV access POSTOPERATIVE DIAGNOSIS: same OPERATION: right subclavian vein triple lumen catheter SURGEON: YVES FAM ANESTHESIA: Local TISSUE REMOVED OR ALTERED: n/a COMPLICATIONS: none ESTIMATED BLOOD LOSS: n/a INTRAOPERATIVE FINDINGS: as above PROCEDURE: see dictation
--- NOTE | 2018-08-13 22:44 | PDOC CONSULTATION ---
Consultation Consult Date: 08/13/18 Consult reason:: Need IV access History of Present Illness Admission Date/PCP: 08/10/18 14:04 IRA HAAS MD History of Present Illness: ROSA ISELA GRAVES is a 58 year old female with sepsis in need of IV access for fluids and medications administration Past Medical History Cardiac Medical History: Reports: Hypertension Denies: Atrial Fibrillation, Congestive Heart Failure, Coronary Artery Disease, DVT, Myocardial Infarction, Peripheral Vascular Disease, Pulmonary Embolism, Heart Murmur Pulmonary Medical History: Denies: Asthma, Chronic Obstructive Pulmonary Disease (COPD), Respiratory Failure EENT Medical History: Reports: None Neurological Medical History: Reports: Seizures Denies: Hemorrhagic CVA, Ischemic CVA, Multiple Sclerosis Endocrine Medical History: Reports: Diabetes Mellitus Type 2, Hypothyroidism, Obesity Denies: Diabetes Mellitus Type 1, Hyperthyroidism Renal/ Medical History: Denies: Chronic Kidney Disease, Nephrolithiasis Malignancy Medical History: Reports: None GI Medical History: Denies: Crohn's Disease, Gastroesophageal Reflux Disease, Hepatitis, Hiatal Hernia, Peptic Ulcer Disease, Ulcerative Colitis Musculoskeltal Medical History: Denies: Arthritis, Gout Skin Medical History: Denies: Eczema, Psoriasis Psychiatric Medical History: Denies: Alcohol Dependency, Depression, General Anxiety Disorder, Substance Abuse, Tobacco Dependency Traumatic Medical History: Reports: None Hematology: Denies: Anemia, Hemophilia, Sickle Cell Disease, Bleeding Tendencies Infectious Medical History: Reports: None Past Surgical History Past Surgical History: Reports: Cholecystectomy, Mastectomy, Pacemaker, Other - cataract Denies: Amputation Social History Lives with: Family - Lives with her elderly mother who cares for her Smoking Status: Never Smoker Frequency of Alcohol Use: None Hx Recreational Drug Use: No Drugs: None Hx Prescription Drug Abuse: No - Advance Directive Resuscitation Status: Full Code Family History Family History: DM, Hypertension, Thyroid Disfunction Parental Family History Reviewed: No Children Family History Reviewed: No Sibling(s) Family History Reviewed.: No Medication/Allergy Home Medications: Gabapentin [Neurontin 300 mg Capsule] 300 mg PO DAILY 07/14/18 Gabapentin [Neurontin 300 mg Capsule] 600 mg PO QHS 07/14/18 Glipizide/Metformin HCl [Glipizide-Metformin 2.5-500 Mg] 2 each PO BID 07/14/18 Levothyroxine Sodium [Synthroid] 200 mcg PO Q6AM 07/14/18 Megestrol Acetate [Megace 20 Mg Tablet] 160 mg PO DAILY 07/14/18 Fluconazole [Diflucan] 150 mg PO DAILY PRN 08/10/18 Fosinopril Sodium 20 mg PO DAILY 08/10/18 Naproxen Sod/Diphenhydramine [Aleve Pm Caplet] 2 each PO DAILY 08/10/18 Allergies/Adverse Reactions: oxycodone Allergy (Verified 08/10/18 12:44) Generalized Itching pioglitazone [From Actos] Allergy (Verified 08/10/18 12:44) COULDN'T BREATHE Physical Exam Vital Signs: Temp Pulse Resp BP Pulse Ox 98.5 F 75 20 140/91 H 100 08/13/18 18:00 08/13/18 09:15 08/13/18 20:43 08/13/18 20:43 08/13/18 20:43 Intake & Output 08/12/18 08/13/18 08/14/18 06:59 06:59 06:59 Intake Total 5124 5600 2538 Output Total 0 1355 550 Balance 5124 4245 1987 Weight 126.3 kg 133.4 kg 129.3 kg General appearance: PRESENT: severe distress, other - obtunded Eye exam: PRESENT: EOMI Mouth exam: PRESENT: neck supple Neck exam: PRESENT: full ROM Respiratory exam: PRESENT: clear to auscultation karla Cardiovascular exam: PRESENT: RRR GI/Abdominal exam: PRESENT: other - obese Extremities exam: PRESENT: full ROM Musculoskeletal exam: PRESENT: full ROM Results Laboratory Results: 08/13/18 20:33 08/13/18 20:33 08/13/18 08/13/18 08/13/18 04:28 04:28 09:16 WBC 26.1 H RBC 2.92 L Hgb 9.4 L Hct 26.9 L MCV 92 MCH 32.2 MCHC 34.9 RDW 15.1 H Plt Count 188 Seg Neutrophils % Not Reportable Lymphocytes % Not Reportable Monocytes % Not Reportable Eosinophils % Not Reportable Basophils % Not Reportable Absolute Neutrophils Not Reportable Absolute Lymphocytes Not Reportable Absolute Monocytes Not Reportable Absolute Eosinophils Not Reportable Absolute Basophils Not Reportable Carbonic Acid HCO3/H2CO3 Ratio ABG pH ABG pCO2 ABG pO2 ABG HCO3 ABG O2 Saturation ABG Base Excess FiO2 Sodium 134.1 L Potassium 4.4 Chloride 111 H Carbon Dioxide 9 L* Anion Gap 14 BUN 43 H Creatinine 2.44 H Est GFR ( Amer) 24 L Est GFR (Non-Af Amer) 20 L Glucose 92 Lactic Acid 1.1 Calcium 7.8 L Magnesium 1.9 Total Bilirubin AST ALT Alkaline Phosphatase Total Protein Albumin 08/13/18 08/13/18 08/13/18 11:43 20:25 20:33 WBC 3.7 L RBC 3.26 L Hgb 10.5 L Hct 30.7 L MCV 94 MCH 32.3 MCHC 34.3 RDW 15.3 H Plt Count 169 Seg Neutrophils % 88.7 H Lymphocytes % 8.4 L Monocytes % 0.9 L Eosinophils % 1.6 Basophils % 0.4 Absolute Neutrophils 3.3 Absolute Lymphocytes 0.3 L Absolute Monocytes 0.0 L Absolute Eosinophils 0.1 Absolute Basophils 0.0 Carbonic Acid 0.72 L 0.61 L HCO3/H2CO3 Ratio 16:1 18:1 ABG pH 7.32 L 7.36 ABG pCO2 23.9 L 20.3 L* ABG pO2 93.0 102.6 H ABG HCO3 12.0 L 11.3 L ABG O2 Saturation 96.7 97.7 ABG Base Excess -12.5 -12.8 FiO2 ROOM AIR ROOM AIR Sodium Potassium Chloride Carbon Dioxide Anion Gap BUN Creatinine Est GFR ( Amer) Est GFR (Non-Af Amer) Glucose Lactic Acid Calcium Magnesium Total Bilirubin AST ALT Alkaline Phosphatase Total Protein Albumin 08/13/18 08/13/18 20:33 21:20 WBC RBC Hgb Hct MCV MCH MCHC RDW Plt Count Seg Neutrophils % Lymphocytes % Monocytes % Eosinophils % Basophils % Absolute Neutrophils Absolute Lymphocytes Absolute Monocytes Absolute Eosinophils Absolute Basophils Carbonic Acid HCO3/H2CO3 Ratio ABG pH ABG pCO2 ABG pO2 ABG HCO3 ABG O2 Saturation ABG Base Excess FiO2 Sodium 134.4 L Potassium 4.0 Chloride 111 H Carbon Dioxide 12 L Anion Gap 11 BUN 43 H Creatinine 2.43 H Est GFR ( Amer) 25 L Est GFR (Non-Af Amer) 20 L Glucose 62 L Lactic Acid 3.3 H Calcium 7.8 L Magnesium 1.8 Total Bilirubin 2.8 H AST 198 H ALT 47 Alkaline Phosphatase 375 H Total Protein 6.3 Albumin 2.3 L 08/11/18 04:05 NT-Pro-B Natriuret Pep 913 H Impressions: Hip X-Ray 08/10/18 12:23 IMPRESSION: NEGATIVE STUDY OF THE RIGHT AND LEFT HIPS AND PELVIS. NO RADIOGRAPHIC EVIDENCE OF ACUTE INJURY. Knee X-Ray 08/10/18 12:24 IMPRESSION: Nondisplaced fracture proximal left fibula. Chest X-Ray 08/13/18 00:00 IMPRESSION: NO ACUTE RADIOGRAPHIC FINDING IN THE CHEST. Assessment & Plan - Diagnosis (1) Need for intravenous access Is this a current diagnosis for this admission?: Yes - Plan Summary Plan Summary: A/ need IV acess for medications and fluids P/ Placement of tripole lumen central venous catheter Procedure, risks, benefits, complications explained to the patient, she understood and decoded to proceed
[2018-08-13] MEDS ORDERED: PHENYLEPHRINE HCL INJ/PF 10 MG/1 ML SDV ONE (22:58)
--- NOTE | 2018-08-13 22:58 | RADIOLOGY REPORT (SQ) ---
EXAM DESCRIPTION: XR CHEST 1 VIEW COMPLETED DATE/TME: 08/13/2018 00:00 CLINICAL HISTORY: 58 years, Female, central line placement Findings: The heart is moderately enlarged. Right subclavian CVC is in place with catheter tip in the distal SVC. No pneumothorax. No pleural effusions. IMPRESSION: Right subclavian CVC. No pneumothorax.
[2018-08-13] MEDS: DEXTROSE 5%-WATER 250 ML with PHENYLEPHRINE HCL 40 MG IV PRN ×2 (23:31)
[2018-08-13] MEDS ORDERED: DEXTROSE 10%-WATER 1,000 ML IV PRN (23:48)
[2018-08-14] MEDS ORDERED: MIDAZOLAM 2 MG/2 ML INJ ONE (00:19)
[2018-08-14] MEDS ORDERED: MIDAZOLAM HCL 50 MG/100 ML RTUINJ ONE (00:43)
[2018-08-14] MEDS: DEXTROSE 5%-WATER 1000 ML 1,000 ML with SODIUM BICARBONATE 150 MEQ IV PRN ×8 (01:32→19:48)
--- NOTE | 2018-08-14 01:40 | RADIOLOGY REPORT (SQ) ---
EXAM DESCRIPTION: CLINICAL HISTORY: 58 years Female ETT PLACEMENT COMPARISON: 08/13/2018 FINDINGS: Endotracheal tube is 2.7 cm above the jonelle. Subclavian line on the right with the tip in the SVC. Cardiomediastinal silhouette is unchanged. Atelectasis in the retrocardiac region on the left. IMPRESSION: ET tube above the jonelle Small amount of retrocardiac atelectasis
[2018-08-14] MEDS ORDERED: NOREPINEPHRINE BITARTRATE INJ/PF 4 MG/4 ML SDV IV ONE (01:41)
[2018-08-14] MEDS: DEXTROSE 5%-WATER 250 ML with NOREPINEPHRINE BITARTRATE 4 MG IV PRN ×4 (02:19→12:27)
[2018-08-14] MEDS: AMPICILLIN SODIUM/SULBACTAM NA 3 GM in NORMAL SALINE 100 ML IV SCH ×4 (02:21→21:04)
[2018-08-14 02:45] LABS: ARTERIAL BLOOD BASE EXCESS -13.9 mmol/L; ARTERIAL BLOOD FIO2 60%; ARTERIAL BLOOD H2CO3 0.82 mmol/L (1.05-1.35); ARTERIAL BLOOD HCO3 11.8 mmol/L (20-24); ARTERIAL BLOOD O2 SATURATION 98.7 % (94-98); ARTERIAL BLOOD PCO2 27.1 mmHg (35-45); ARTERIAL BLOOD PH 7.26 (7.35-7.45); ARTERIAL BLOOD PO2 150.6 mmHg (80-100); ARTERIAL BLOOD TOTAL CO2 12.6 mmol/L (21-25)
--- NOTE | 2018-08-14 03:03 | Progress Note ---
Provider Note Provider Note: -Nurse called me as patient has been persistently hypotensive, was initiated on levophed unsuccessfully, still hypotensive we had to add vasopressin and Jt- Synephrine and finally could get a borderline blood pressure. Patient was also obtunded and unarousable, tachypneic likely secondary to his severe metabolic acidosis, critically ill and unable to protect her airways. Currently anuric. Decision was made to intubated and place her on mechanical ventilator. -On IV Invanz, added IV Unasyn as urine culture growing E. coli and E faecalis, sensitivity reviewed. -Lactic acid elevated at 3.3 we will repeat this value in the morning. Leukocytosis is shifting to leukopenia. -Central line placed. -Blood cultures order as well as C. difficile. -Accu-Cheks every 2 hours. -Mother has been called by the nurse and inform her of patient's current critical condition.
[2018-08-14] MEDS ORDERED: ACETAMINOPHEN 650 MG SUPP.RECT PR ONE (03:25)
[2018-08-14] MEDS ORDERED: ACETAMINOPHEN 650 MG SUPP.RECT PR PRN (03:43)
[2018-08-14] MEDS ORDERED: PHENYLEPHRINE HCL INJ/PF 10 MG/1 ML SDV ONE (04:11)
[2018-08-14] MEDS: DEXTROSE 5%-WATER 250 ML with PHENYLEPHRINE HCL 40 MG IV PRN ×10 (04:21→19:48)
[2018-08-14] MEDS: MIDAZOLAM HCL 50 MG/100 ML RTUINJ IV PRN ×4 (04:48→23:43)
--- NOTE | 2018-08-14 05:17 | OPERATIVE REPORT E ---
Operative Report NAME: ROSA ISELA GRAVES : 1960 AGE: 58Y DATE OF SURGERY: 08/13/18 ROOM: 608 PREOPERATIVE DIAGNOSIS: NEED OF IV ACCESS FOR MEDICATION AND FLUIDS. POSTOPERATIVE DIAGNOSIS: NEED OF IV ACCESS FOR MEDICATION AND FLUIDS. OPERATION: Placement of right subclavian vein triple-lumen central venous catheter. SURGEON: YVES FAM M.D. TIRE TRIMMER HAND: None. ANESTHESIA: 15 mL of 1% lidocaine without epinephrine. ESTIMATED BLOOD LOSS: None. COMPLICATIONS: None. INDICATION AND FINDINGS: A 58-year-old female, septic, in need of IV access for medication and fluids. DESCRIPTION OF PROCEDURE: The procedure was done at bedside in the ICU. The patient was placed in supine position. A towel was placed in between the shoulder blades. The right side of the chest and neck prepped and draped in usual fashion. The area just below the midportion of the clavicle was infiltrated with lidocaine. A 16-gauge needle was then used to easily cannulate the right subclavian vein. A guidewire was inserted through a needle into the subclavian vein and superior vena cava. The needle was removed and insertion point for guidewire enlarged with a #11 blade and a tissue dilator, which was removed. A triple-lumen catheter inserted over the guidewire into the subclavian and superior vena cava. The guidewire was removed. Each port was aspirated and flushed with normal saline without difficulty. The catheter was secured to the skin with silk sutures. Sterile dressing was applied. The patient tolerated the procedure well and a chest x-ray was obtained to confirm position of the line. DICTATING PHYSICIAN: YVES FAM M.D. [id number] PHY#: [id number] ID: [id number] JOB#: [id number] ACCT: [id number] cc:YVES FAM M.D. >
[2018-08-14] MEDS: PANTOPRAZOLE SODIUM 40 MG VIAL IV SCH ×2 (05:34→17:27)
[2018-08-14] MEDS: LEVOTHYROXINE SODIUM 0.1 MG TABLET PO SCH (05:34)
[2018-08-14 05:39] LABS: HEMATOCRIT 27.7 % (36.0-47.0); HEMOGLOBIN 9.6 g/dL (12.0-15.5); MEAN CORPUSCULAR HEMOGLOBIN 31.8 pg (27.0-33.4); MEAN CORPUSCULAR HGB CONC 34.5 g/dL (32.0-36.0); MEAN CORPUSCULAR VOLUME 92 fl (80-97); PLATELET COUNT 178 10^3/uL (150-450); RED BLOOD COUNT 3.01 10^6/uL (3.72-5.28); RED CELL DISTRIBUTION WIDTH 15.4 % (11.5-14.0)
[2018-08-14 05:56] LABS: ARTERIAL BLOOD BASE EXCESS -14.2 mmol/L; ARTERIAL BLOOD H2CO3 0.72 mmol/L (1.05-1.35); ARTERIAL BLOOD O2 SATURATION 98.5 % (94-98); ARTERIAL BLOOD PCO2 23.9 mmHg (35-45); ARTERIAL BLOOD PH 7.28 (7.35-7.45); ARTERIAL BLOOD TOTAL CO2 11.7 mmol/L (21-25)
[2018-08-14 05:57] LABS: ARTERIAL BLOOD FIO2 40%
[2018-08-14 06:13] LABS: ABSOLUTE LYMPHOCYTES# (MANUAL) 2.4 10^3/uL (0.5-4.7); ABSOLUTE MONOCYTES # (MANUAL) 1.2 10^3/uL (0.1-1.4); ABSOLUTE NEUTROPHILS# (MANUAL) 36.4 10^3/uL (1.7-8.2); BAND NEUTROPHILS % (MANUAL) 9 % (3-5); BASOPHILS % (MANUAL) 0 % (0-2); EOSINOPHILS % (MANUAL) 0 % (0-6); LYMPHOCYTES % (MANUAL) 6 % (13-45); MONOCYTES % (MANUAL) 3 % (3-13); SEGMENTED NEUTROPHILS % (MAN) 82 % (42-78); TOTAL CELLS COUNTED 100
[2018-08-14 06:17] LABS: ANISOCYTOSIS SLIGHT; POIKILOCYTOSIS 1+; POLYCHROMASIA SLIGHT; TOXIC GRANULATION SLIGHT; TOXIC VACUOLATION PRESENT
[2018-08-14 06:18] LABS: OVALOCYTES SLIGHT; PLATELET COMMENT ADEQUATE
--- NOTE | 2018-08-14 06:21 | RADIOLOGY REPORT (SQ) ---
EXAM DESCRIPTION: X-ray single view chest. CLINICAL HISTORY: 58 years Female, resp. failure COMPARISON: Prior portable chest performed on 08/14/2018 at 1:21 AM TECHNIQUE: Single portable view of the chest performed on 08/14/2018 at 6:10 AM FINDINGS: The lungs are relatively well expanded. There is patchy parenchymal opacification in the medial left lung base likely due to atelectasis. The lateral costophrenic sulci are clear. There is no evidence of a pneumothorax. The cardiac silhouette is normal in size and configuration. The mediastinal contours are normal. No acute osseous abnormality is identified. No focal soft tissue abnormalities are seen. Lines and tubes: There are overlying hall monitor leads. The right subclavian central venous catheter tip overlies the region of the superior vena cava. The tip of the endotracheal tube lies below the clavicular heads and above the jonelle. IMPRESSION: 1. Life support lines and tubes are grossly stable. 2. Suspect mild left basilar atelectasis. 3. Otherwise, the lungs are grossly clear.
[2018-08-14 06:38] LABS: ALANINE AMINOTRANSFERASE 39 U/L (9-52); ALBUMIN 2.2 g/dL (3.5-5.0); ALKALINE PHOSPHATASE 344 U/L (38-126); ANION GAP 14 (5-19); ASPARTATE AMINO TRANSFERASE 161 U/L (14-36); BILIRUBIN,DIRECT 2.8 mg/dL (0.0-0.4); BILIRUBIN,TOTAL 3.3 mg/dL (0.2-1.3); BLOOD UREA NITROGEN 42 mg/dL (7-20); CALCIUM 7.1 mg/dL (8.4-10.2); CARBON DIOXIDE 11 mmol/L (22-30); CHLORIDE 105 mmol/L (98-107); GLUCOSE 205 mg/dL (75-110); PHOSPHORUS 4.4 mg/dL (2.5-4.5); POTASSIUM 3.7 mmol/L (3.6-5.0); SODIUM 129.5 mmol/L (137-145); TOTAL PROTEIN 6.1 g/dL (6.3-8.2)
[2018-08-14] MEDS ORDERED: LIDOCAINE 1% INJ-PF (10 MG/ML) 30 ML SDV ONE (08:48)
--- NOTE | 2018-08-14 09:41 | OPERATIVE REPORT E ---
Operative Report NAME: ROSA ISELA GRAVES : 1960 AGE: 58Y DATE OF SURGERY: 08/14/2018 ROOM: 608 PREOPERATIVE DIAGNOSIS: Multiorgan system failure with shock. POSTOPERATIVE DIAGNOSIS: Multiorgan system failure with shock. OPERATION: 1. Focused ultrasound of the left arm. 2. Ultrasound-directed insertion of 18-gauge left forearm arterial pressure monitoring catheter. SURGEON: JITENDRA ZAMARRIPA M.D. INCIDENT HANDLER: Bijan Logan M.D. ANESTHESIA: Propofol IV. COMPLICATIONS: None. ESTIMATED BLOOD LOSS: Scant. DRAINS: None. SUMMARY OF PROCEDURE: Informed consent had been provided by the family. Attempts were made by Dr. Logan earlier this morning to insert an arterial pressure monitoring line in a femoral artery, but due to the diminutive size of the artery it was unsuccessful. I examined the patient's upper extremities. The left upper extremity had the least number of needle sticks at the wrist and at the antecubital fossa. I scanned the left upper extremity with the variable frequency linear transducer, and the left radial artery although detectable was very diminutive and felt to be challenging for access. Therefore, I approached the antecubital fossa and examined the brachial artery which appeared to be a decent caliber artery approximately 3 to 4 mm in diameter. We prepped the left antecubital fossa as well as the transducer with the sterile sheath. Time out was conducted. Using the microneedle and wire, the left brachial artery just distal to the antecubital fossa was accessed successfully. The 18-gauge dilator and micro sheath were threaded over the wire. The wire and sheath were removed, leaving the catheter in good position. There was arterial flow pulsating at 73 beats per minute. It was somewhat deoxygenated. It was hooked to a pressure monitor and an appropriate waveform achieved. The catheter was secured to the skin with the monitoring line at 2 sites with 2-0 Ethilon suture. Biopatch and sterile dressing were applied. The patient tolerated the procedure well. DICTATING PHYSICIAN: JITENDRA ZAMARRIPA M.D. [id number] PHY#: [id number] ID: [id number] JOB#: [id number] ACCT: [id number] cc:JITENDRA ZAMARRIPA M.D. >
[2018-08-14] MEDS ORDERED: MEROPENEM 1 GM VIAL IV SCH (09:45)
[2018-08-14] MEDS ORDERED: ERTAPENEM SODIUM 1 GM in NORMAL SALINE 50 ML IV SCH (10:00)
[2018-08-14] MEDS: ENOXAPARIN SODIUM INJ 40 MG/0.4 ML DISP.SYRIN SUBCUT SCH (11:01)
[2018-08-14] MEDS: DOCUSATE SODIUM 100 MG CAPSULE PO SCH ×2 (11:01→17:27)
[2018-08-14] MEDS: FAMOTIDINE 20 MG TABLET PO SCH ×2 (11:02→22:08)
[2018-08-14] MEDS: PREGABALIN 50 MG CAPSULE PO SCH ×2 (11:02→17:27)
[2018-08-14] MEDS: MEROPENEM 1 GM in NORMAL SALINE 50 ML IV SCH ×2 (11:10→22:08)
[2018-08-14] MEDS: INSULIN GLARGINE,HUM.REC.ANLOG 300 UNIT/3 ML INSULN.PEN SUBCUT SCH ×2 (11:12→22:09)
--- NOTE | 2018-08-14 13:19 | RADIOLOGY REPORT (SQ) ---
EXAM DESCRIPTION: KUB/ABDOMEN (SINGLE VIEW) COMPLETED DATE/TIME: 08/14/2018 12:58 pm REASON FOR STUDY: check OG tube placement COMPARISON: Earlier the same day. NUMBER OF VIEWS: One view. TECHNIQUE: Supine radiographic image of the chest and upper abdomen acquired. LIMITATIONS: None. FINDINGS: Nasogastric tube tip overlies mid thoracic esophagus. Can be advanced at least 20 cm. Un changed position of endotracheal tube and right-sided central line. Clips left upper and right upper quadrants. No obstruction. IMPRESSION: High position of nasogastric tube. Reading location - IP/workstation name: [facility]PLAC[facility] BY [id number]
[2018-08-14 14:23] LABS: PATH REVIEW PATHOLOGIST REVIEWED
[2018-08-14] MEDS: MORPHINE SULFATE 10 MG/ML INJ IV PRN (15:23)
[2018-08-14] MEDS: INSULIN LISPRO 100 UNIT/ML 3 ML VIAL SUBCUT PRN ×2 (17:41→23:14)
--- NOTE | 2018-08-14 19:08 | PDOC PROGRESS REPORT ---
Subjective Progress Note for:: 08/14/18 Subjective:: ALICIA WATTS is a 58 year old female who presented to the emergency room with a 5-day history of progressively worsening generalized weakness. She admits that 5 days ago she she began feeling very poorly and discontinued taking all of her normal medications. She then noticed that she began feeling more progressively nauseated and had been unable to eat any food or consume much in the way of fluids. Over the next day or so she became so weak that she had fall multiple falls and was required to crawl in order to get around until she began using a wheelchair. She states that due to the fall she had pain in her legs and buttocks. She admits associated symptoms of intermittent dyspnea, severe discomfort in her buttocks and sacral region, severe discomfort in her feet over the dorsal aspects to any palpation or any contact of the dorsal surfaces. She also acknowledges occasional abdominal pain with nausea but no vomiting and occasional rectal pain without bleeding. She relates that she believes she is probably developing another pilonidal cyst though an evaluation of this area in the emergency room revealed no evidence of an emerging cyst. She denies dysuria, hematuria, fever, chills, headaches, syncope, palpitations, chest pain and rash. In the emergency room she was found to have a elevated creatinine at 2.16 with a potassium of 6.0 and a blood sugar of 245. Additional findings included an elevated white blood count of 14,300 and a depressed hemoglobin of 10.6. Because her creatinine elevation was significantly higher than the previous normal creatinine level within the last 12 months patient was admitted to the hospital for treatment of her acute renal injury/acute renal failure. 08/11/18: Alicia feels substantially better this morning with a significant improvement in her generalized weakness and decrease in her nausea and dyspnea. She continues to have pains in her feet and buttocks but is not currently having any abdominal pain. She was happy to hear that her white blood count was slightly reduced to 14,000 and her creatinine was decreased to 1.87 with a drop in her BUN to 46. I have encouraged her to be patient and realized that improvement will be slow and gradual as her hydration status improves she will probably feel considerably better. We will discontinue the normal saline IV and change to half-normal saline at 167 mL/h. We will continue to follow her daily laboratory tests (CBC, BMP and magnesium). She was also delighted to find out that her blood sugar has been in good control with her current regiment. She specifically asked to not have to take any more Kayexalate because of the bad taste and the resultant diarrhea. I informed her that her potassium level had decreased far enough that she should not have to have Kayexalate anymore unless she has any further arrhythmias like the one she had earlier this morning. Her intake clinician strip showed a supraventricular/ junctional flutter wave pattern with 4-1 block lasting for more than 6 seconds. She will be continued on cardiac monitoring through the remainder of her hospital course. 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 08/12/18: Alicia is somewhat somnolent today and was hypotensive just prior to my arrival. Her blood pressure has been running in the 70s-80s systolic this morning and with that she has been somewhat somnolent and/or intermittently responsive. She looks at me when I call her name and says what sounds like hello but is more of a grunting noise. She then becomes somnolent and her chin drops for short time and then she will gradually come around open her eyes and look around the room briefly before returning to sleep. She was treated with a fluid bolus of normal saline 1 L over 1 hour and had an excellent response with her blood pressure climbing nicely and be recorded in the 130s over 80s. This also seemed to resolve her somnolence and poor responsiveness. Patient however later in the afternoon developed another episode of hypotension again with a systolic blood pressure in the 70s and she was again given a fluid bolus of normal saline 1 L over 1 hour. At the time of this dictation the nurse responsible for the patient has not given me a further update on her condition. I checked on her blood pressure after completing this note and found that her blood pressure had improved to the high 90s and low 100s systolic with the fluid bolus. Consideration for using dopamine or dobutamine as a pressor agent was entertained but not employed, as her blood pressure remained reasonably stable though relatively hypotensive. At this point I believe that the cause of the hypotension is most likely her urinary tract infection with a probable incipient sepsis. 08/13/18: Alicia is much more alert today but continues to have relative hypotension despite extensive volume replacement. She is also noted to have a progressively worsening metabolic acidosis and declining renal function. She continues to complain of pain in her sacral and buttock cleft area which seems to be worsening rather than improving. Her white blood count increased to over 24,000 overnight and because of the cumulative number of negative changes she was moved to the ICU for further care. She is in agreement with the move as she understands that her condition is not improving as we discussed and that we may be able to accomplish more significant improvement with care in the ICU. On exam today her chest was clear and she was not found to have any significant peripheral edema. Her intragluteal cleft was examined and shows a linear ulceration/fissure within the intragluteal cleft extending in depth to the sub- cutaneous fat. This would be a stage III decubitus ulceration. We will treat this ulceration with Bactroban ointment topically twice a day and will otherwise try to keep it dry with a gauze dressing that may provide some cushion and reduce her discomfort. She will continue to use IV morphine for pain control as required. We will treat her metabolic acidosis with a bicarbonate drip and I have empirically changed her antibiotics to Invanz as I suspect an early gram-negative (E. coli) sepsis as a possible etiology of her hypotension and declining renal function as well as her metabolic acidosis. ABGs have been ordered and I will continue to follow her daily labs. 08/14/18: This patient had a significant problem overnight becoming progressively more hypotensive and less and less arousable. She had become essentially obtunded and was requiring multiple pressors to support her blood pressure. She was subsequently intubated and placed on a ventilator for respiratory support as a means of protecting her airway and her obtunded state. She was treated with pressors utilizing levofed and vasopressin. Her urine culture also grew out another organism Enterococcus faecalis which was fairly broadly sensitive and was especially sensitive to ampicillin. Unasyn was added to her antibiotic therapy for this reason. Her white blood count was noted to be down to 3700 last evening but has dramatically risen to 40,000 this morning. Her metabolic acidosis is very persistent and her bicarb is still less than 12. Her bicarbonate drip was restarted and increased to 250 mL/h. Her blood pressure is somewhat improved this morning but still requiring pressor support with Levophed. I will discontinue ertapenem in favor of meropenem for a slightly improved coverage spectrum. The patient is comfortable to appearance and is intubated and mechanically ventilated. Reason For Visit: ACUTE RENAL FAILURE Physical Exam Vital Signs: Temp Pulse Resp BP Pulse Ox 100.9 F H 75 22 H 110/58 L 100 08/14/18 10:00 08/14/18 10:00 08/14/18 18:00 08/14/18 17:49 08/14/18 18:00 Intake & Output 08/12/18 08/13/18 08/14/18 23:59 23:59 23:59 Intake Total 5550 3624 5221 Output Total 1230 750 255 Balance 4320 2874 4966 Weight 126.3 kg 129.3 kg 133 kg General appearance: PRESENT: morbidly obese, other - Sedated and intubated endotracheally for mechanical ventilation. Head exam: PRESENT: atraumatic, normocephalic Eye exam: ABSENT: conjunctival injection, conjunctiva pale, periorbital swelling , scleral icterus Ear exam: PRESENT: normal external ear exam. ABSENT: bleeding, drainage Mouth exam: PRESENT: dry mucosa, neck supple, tongue midline Neck exam: ABSENT: JVD, thyromegaly, tracheal deviation Respiratory exam: PRESENT: symmetrical, other - Endotracheally intubated with mechanical ventilation.. ABSENT: prolonged expiratory phas, wheezes Cardiovascular exam: PRESENT: RRR. ABSENT: clicks, gallop, rubs Vascular exam: PRESENT: normal capillary refill. ABSENT: pallor GI/Abdominal exam: PRESENT: normal bowel sounds, soft Rectal exam: PRESENT: deferred Extremities exam: ABSENT: clubbing, joint swelling Musculoskeletal exam: ABSENT: deformity, dislocation Neurological exam: PRESENT: other - Sedated for mechanical ventilation Psychiatric exam: PRESENT: other - Sedated for mechanical ventilation Skin exam: PRESENT: pallor. ABSENT: jaundice, rash, urticaria Results Laboratory Results: 08/14/18 05:20 08/14/18 06:15 08/13/18 08/13/18 08/13/18 20:25 20:33 20:33 WBC 3.7 L RBC 3.26 L Hgb 10.5 L Hct 30.7 L MCV 94 MCH 32.3 MCHC 34.3 RDW 15.3 H Plt Count 169 Seg Neutrophils % 88.7 H Lymphocytes % 8.4 L Monocytes % 0.9 L Eosinophils % 1.6 Basophils % 0.4 Absolute Neutrophils 3.3 Absolute Lymphocytes 0.3 L Absolute Monocytes 0.0 L Absolute Eosinophils 0.1 Absolute Basophils 0.0 Carbonic Acid 0.61 L HCO3/H2CO3 Ratio 18:1 ABG pH 7.36 ABG pCO2 20.3 L* ABG pO2 102.6 H ABG HCO3 11.3 L ABG O2 Saturation 97.7 ABG Base Excess -12.8 FiO2 ROOM AIR Sodium 134.4 L Potassium 4.0 Chloride 111 H Carbon Dioxide 12 L Anion Gap 11 BUN 43 H Creatinine 2.43 H Est GFR ( Amer) 25 L Est GFR (Non-Af Amer) 20 L Glucose 62 L Lactic Acid Calcium 7.8 L Phosphorus Magnesium 1.8 Total Bilirubin 2.8 H AST 198 H ALT 47 Alkaline Phosphatase 375 H Total Protein 6.3 Albumin 2.3 L 08/13/18 08/14/18 08/14/18 21:20 02:30 02:45 WBC RBC Hgb Hct MCV MCH MCHC RDW Plt Count Seg Neutrophils % Lymphocytes % Monocytes % Eosinophils % Basophils % Absolute Neutrophils Absolute Lymphocytes Absolute Monocytes Absolute Eosinophils Absolute Basophils Carbonic Acid 0.82 L HCO3/H2CO3 Ratio 14:1 ABG pH 7.26 L ABG pCO2 27.1 L ABG pO2 150.6 H ABG HCO3 11.8 L ABG O2 Saturation 98.7 H ABG Base Excess -13.9 FiO2 60% Sodium Potassium Chloride Carbon Dioxide Anion Gap BUN Creatinine Est GFR ( Amer) Est GFR (Non-Af Amer) Glucose Lactic Acid 3.3 H 3.0 H Calcium Phosphorus Magnesium Total Bilirubin AST ALT Alkaline Phosphatase Total Protein Albumin 08/14/18 08/14/18 08/14/18 05:20 05:20 05:20 WBC 40.0 H* D RBC 3.01 L Hgb 9.6 L Hct 27.7 L MCV 92 MCH 31.8 MCHC 34.5 RDW 15.4 H Plt Count 178 Seg Neutrophils % Not Reportable Lymphocytes % Not Reportable Monocytes % Not Reportable Eosinophils % Not Reportable Basophils % Not Reportable Absolute Neutrophils Not Reportable Absolute Lymphocytes Not Reportable Absolute Monocytes Not Reportable Absolute Eosinophils Not Reportable Absolute Basophils Not Reportable Carbonic Acid HCO3/H2CO3 Ratio ABG pH ABG pCO2 ABG pO2 ABG HCO3 ABG O2 Saturation ABG Base Excess FiO2 Sodium Cancelled Potassium Cancelled Chloride Cancelled Carbon Dioxide Cancelled Anion Gap Cancelled BUN Cancelled Creatinine Cancelled Est GFR ( Amer) Cancelled Est GFR (Non-Af Amer) Cancelled Glucose Cancelled Lactic Acid 3.7 H Calcium Cancelled Phosphorus Cancelled Magnesium Total Bilirubin Cancelled AST Cancelled ALT Cancelled Alkaline Phosphatase Cancelled Total Protein Cancelled Albumin Cancelled 08/14/18 08/14/18 08/14/18 05:20 05:20 06:15 WBC RBC Hgb Hct MCV MCH MCHC RDW Plt Count Seg Neutrophils % Lymphocytes % Monocytes % Eosinophils % Basophils % Absolute Neutrophils Absolute Lymphocytes Absolute Monocytes Absolute Eosinophils Absolute Basophils Carbonic Acid 0.72 L HCO3/H2CO3 Ratio 15:1 ABG pH 7.28 L ABG pCO2 23.9 L ABG pO2 138.0 H ABG HCO3 11.0 L ABG O2 Saturation 98.5 H ABG Base Excess -14.2 FiO2 40% Sodium 129.5 L Potassium 3.7 Chloride 105 Carbon Dioxide 11 L Anion Gap 14 BUN 42 H Creatinine 2.80 H Est GFR ( Amer) 21 L Est GFR (Non-Af Amer) 17 L Glucose 205 H Lactic Acid Calcium 7.1 L Phosphorus 4.4 Magnesium 1.6 Total Bilirubin 3.3 H AST 161 H ALT 39 Alkaline Phosphatase 344 H Total Protein 6.1 L Albumin 2.2 L 08/14/18 08/14/18 08/14/18 10:15 10:15 15:15 WBC RBC Hgb Hct MCV MCH MCHC RDW Plt Count Seg Neutrophils % Lymphocytes % Monocytes % Eosinophils % Basophils % Absolute Neutrophils Absolute Lymphocytes Absolute Monocytes Absolute Eosinophils Absolute Basophils Carbonic Acid HCO3/H2CO3 Ratio ABG pH ABG pCO2 ABG pO2 ABG HCO3 ABG O2 Saturation ABG Base Excess FiO2 Sodium Potassium Chloride Carbon Dioxide Anion Gap BUN Creatinine Est GFR ( Amer) Est GFR (Non-Af Amer) Glucose Lactic Acid Cancelled 4.0 H 4.6 H Calcium Phosphorus Magnesium Total Bilirubin AST ALT Alkaline Phosphatase Total Protein Albumin 08/11/18 04:05 NT-Pro-B Natriuret Pep 913 H Impressions: Hip X-Ray 08/10/18 12:23 IMPRESSION: NEGATIVE STUDY OF THE RIGHT AND LEFT HIPS AND PELVIS. NO RADIOGRAPHIC EVIDENCE OF ACUTE INJURY. Knee X-Ray 08/10/18 12:24 IMPRESSION: Nondisplaced fracture proximal left fibula. Chest X-Ray 08/14/18 06:00 IMPRESSION: 1. Life support lines and tubes are grossly stable. 2. Suspect mild left basilar atelectasis. 3. Otherwise, the lungs are grossly clear. KUB X-Ray 08/14/18 12:07 IMPRESSION: High position of nasogastric tube. Assessment & Plan - Diagnosis (1) Sepsis due to Escherichia coli with acute renal failure Is this a current diagnosis for this admission?: Yes Plan: 08/13/18: The patient's symptomology and laboratory findings support the diagnosis of sepsis. She has been found to have a culture positive E. coli urinary tract infection as her source of sepsis. Her white blood count has dramatically increased to greater than 26,000+, she has had significant hypotension requiring extensive volume replacement to provide at best intermediate improvement, she has developed a progressively worsening metabolic acidosis and lastly she has developed worsening acute renal failure. With the criteria for sepsis being met her antibiotic therapy was changed to Invanz 1 g daily and she was moved to the ICU for more intensive observation of her hypotension and renal failure. Her lactic acid was noted to be normal and thus is not useful as a marker in her sepsis. I will continue to follow daily lab work and I will obtain ABGs today with further determinations of her ABGs as necessary for diagnostic purposes. 08/14/18: Patient still is most certainly septic her therapy has been changed to meropenem 1 g IV every 8 hours and Unasyn 3 g IV every 6 hours was added last night by the nocturnal's for coverage of a newly found Enterococcus faecalis growing in her urine culture. Though she has Escherichia coli and Enterococcus faecalis growing in her urine blood cultures were obtained and thus far are negative however the diagnosis of sepsis is most certain on clinical criterion. Her renal failure has worsened and her leukocytosis was substantially increased this morning after diving into a leukopenia level last night. Her metabolic acidosis is persistent and severe. Her septic shock is being treated with blood pressure support utilizing Levophed. She continues to be on high volume replacement fluids in the form of a bicarbonate drip at 250 mL an hour. (2) DINANE (acute kidney injury) Is this a current diagnosis for this admission?: Yes Plan: Patient was noted to have had a creatinine of 0.8 sometime within the last 12 months per the emergency room physician. With her creatinine now at 2.16 a diagnosis of acute renal injury/acute renal failure is obvious. She has been admitted for IV fluid therapy to correct the dehydration component of her acute renal injury and for treatment of her hyperkalemia component Kayexalate and insulin have been given. Daily evaluation of her renal functions will be performed. Additional therapy be provided and/or consultation will be obtained as needed. 08/11/18: We will continue IV fluid hydration with half-normal saline at 167 mL/h. Follow daily lab work (CBC, BMP and magnesium level). 08/12/18: Patient has received 2 1000 mL IV fluid boluses of normal saline today in addition to her regular IV fluids. We will monitor her electrolytes closely and a Wynne catheter will be placed to adequately monitor her output as compared to her input. 08/13/18: Alicia's renal functions have worsened overnight with her creatinine rising above 2.4 additionally she has remained relatively hypotensive despite extensive volume replacement. She is also noted to have a significant metabolic acidosis that is worsening rather than improving. She is started today on a bicarbonate drip for replenishment of her bicarb deficit and improvement in her acid base balance. Her urinary tract infection may be playing a role in her acute kidney injury and as such her E. coli UTI is going to be treated with Invanz 1 g IV daily with the first dose stat. I will continue to follow her daily lab work and I will obtain ABGs today for further evaluation of her metabolic acidosis as it pertains to her acute kidney injury. 08/14/18: The patient's renal functions have have worsened again with her creatinine at 2.8 this morning. Again her metabolic acidosis is persistent and she is most certainly septic. I believe that the acute renal failure is due to the patient' s sepsis and is not being improved at all by the septic shock requiring pressor support. We will continue to monitor the patient's renal functions and continue to provide supportive care to help to resolve the renal insult. (3) Escherichia coli urinary tract infection Is this a current diagnosis for this admission?: Yes Plan: Patient's urinary tract infection has been identified as a pansensitive E. coli. Her initial treatment was with Ancef however with her worsening status reflected in her increased white blood count 26,000+, worsening renal function with creatinine rising to above 2.4, persistent relative hypotension and worsening metabolic acidosis, it was felt that she was probably in the incipient stages of sepsis. All these findings would be consistent with sepsis and as such she was moved to the intensive care unit and her antibiotics were changed to Invanz 1 g IV daily. If her hypotension worsens pressor support will be given. 08/14/2018: Patient's blood pressure did drop significantly last night with hypotension requiring 2 pressor agents for a time but currently being treated with just Levophed. In addition to the E. coli urinary tract infection she has been found to have another organism, a gram negative cocci, Enterococcus faecalis. She is currently on meropenem and Unasyn was added by the doctors for coverage of the Enterococcus faecalis due to its sensitivity to ampicillin. Blood cultures are currently pending and are thus far negative. Tracheal aspirate was also obtained and the patient was intubated. (4) Metabolic acidosis Is this a current diagnosis for this admission?: Yes Plan: 08/13/18: Ms. Watts's metabolic acidosis has worsened significantly over the last 24-48 hours. She has been moved to the intensive care unit in [facility] been started on a bicarbonate drip to help correct her bicarbonate deficit and to balance her metabolic status. Her daily laboratory work will be followed closely and adjustments to her bicarbonate drip will be made as appropriate based upon intraday and AM lab work. 08/14/2018: Patient's metabolic acidosis is persistent and is being treated by reinstitution of her bicarbonate drip at 250 mL an hour and continued supportive care with pressors for maintenance of her systolic blood pressure as well as mechanical ventilation for support of her respiratory functions. We will continue to treat her metabolic acidosis until her bicarbonate deficit is substantially reduced and her overall status is substantially improved. (5) Diabetes mellitus type 2 in obese Is this a current diagnosis for this admission?: Yes Plan: Patient has been noncompliant with her diabetic therapy and with her significant renal failure is not appropriate to start her back on metformin. Patient will be treated with Lantus at 0.3 units/kg/day and sliding scale lispro before meals and at bedtime. A hemoglobin A1c will be checked in the morning and further treatment will be rendered as appropriate. 08/11/18: Hemoglobin A1c was 8.0 representing reasonably good diabetic control on her previous regimen. She will be continued on Lantus and sliding scale Humalog until such time as her renal function has improved and she may be placed back on oral hypoglycemic medications. Continue before meals and at bedtime blood sugars. 08/12/18: Patient's blood sugar has been has been very well controlled throughout the last 24 hours and no changes will be made in her current regimen. Continue before meals and at bedtime blood sugar measurements and sliding scale as needed. 08/13/18: Alicia's blood sugar continues to be reasonably well-controlled with her current regimen. We will follow her before meals and at bedtime blood sugars and daily lab work for ongoing assessment with changes made to her regiment as indicated. 08/14/18: Patient will have her blood sugar monitored throughout her hospital stay even while she is on the ventilator her blood sugar should be checked every 6 hours with sliding scale coverage given if needed and with glucose support as required. (6) Decubitus ulcer of sacral region, stage 3 Is this a current diagnosis for this admission?: Yes Plan: 08/13/18: Patient's decubitus ulcer of her sacrum will be addressed using Bactroban ointment applied twice daily with a Telfa and gauze dressing and additional gauze padding to help provide cushion and hopefully comfort for the patient's benefit. Her wound will be reevaluated on an as-needed basis per ICU nursing staff input. (7) Generalized weakness Is this a current diagnosis for this admission?: Yes Plan: Patient's generalized weakness is most likely due to her lack of taking her appropriate medications as well as significant dehydration. She will be rehydrated and blood sugar will be controlled with reintroduction of a diet/ nutrition. She will be given physical therapy and occupational therapy evaluations for improvement in her strength and recovery of her ability to ambulate. Her pain and discomfort will be treated with morphine IV utilizing 2 mg for pain of 1-2/5, 3 mg IV for pain of 3-4/5 and 4 mg IV for pain of 5/5 all can be given on an as-needed basis every hour. IV fluids will be normal saline at 167 mL/h. Her laboratory values be reassessed every morning and as appropriate. 08/11/18: Patient's weakness has significantly improved with hydration and normalization of her electrolyte levels. She continues to have some weakness in her legs and her painful paresthesias persist. Rehydration will be continued and an oral diet for appropriate calories and nutrition is strongly encouraged. Oral fluids were also encouraged and she will continue to have intravenous morphine available on as-needed basis for pain. 08/12/18: Patient's weakness cannot be adequately assessed today at the time of my visit because of her somnolence and poor responsiveness. I will reassess patient at another time when she is able to be alert and responsive. 08/13/18: Alicia's weakness is minimally improved on today's evaluation. Overall she is much better hydrated and she is much more alert and relaxed but she continues to be relatively weak. A physical therapy consult will be obtained as will Occupational Therapy such that the patient may require posthospitalization rehabilitation. 08/14/18: Patient's generalized weakness will be addressed again after her recovery from her current septic shock state. Physical therapy and occupational therapy will be reconsulted and appropriate time for her further evaluation. (8) Hyperesthesia Is this a current diagnosis for this admission?: Yes Plan: Patient complains of severe pain with even the slightest touch or brushing over the dorsum's of her feet and on her sacral and buttock areas. She is being treated with gabapentin for diabetic peripheral neuropathy and she states that this feels a lot like her peripheral neuropathy when it flares up. She also has had similar symptoms when she had a pilonidal cyst in the past. She has been noncompliant with her medication for several days and therefore is not taken her gabapentin. I have elected to begin treating her with Lyrica 50 mg p.o. twice daily as she reports that her gabapentin was less than satisfactorily effective. Therapy will need to be reassessed in approximately 1 -2 weeks with adjustments in dosage as required. 08/11/18: Patient's hyperesthesia is mildly improved today with Lyrica and hydration. She has used morphine several times for her discomfort and she is encouraged to use it as needed but not more than what is needed. Her current regimen will be continued and we will evaluate efficacy on a daily basis. 08/12/18: Patient's hyperesthesia is not assessed today as the patient is not responsive enough to provide a meaningful subjective evaluation. I will reassess patient at another time in the future when she is more responsive and alert. 08/13/18: Alicia's hyperesthesia is significantly improved but she continues to have significant focal pain in her intergluteal/sacral area and in her left lateral knee and to a lesser degree in her right anteromedial knee. Thus her hyperesthesia has essentially resolved at this point in her care. (9) Hyperkalemia Is this a current diagnosis for this admission?: Yes Plan: Patient's potassium is 6.0 at the time of admission and she has been treated with insulin for her diabetes and will also be receiving Kayexalate 30 g p.o. x1. Her electrolytes be rechecked at 2200 tonight and again in the morning. Further treatment will be given in accordance with her laboratory values. IV fluids will be continued at 167 mL/h utilizing normal saline. 08/11/18: Potassium has fallen to 5.4 on this morning's lab and should continue to fall with continued IV fluid support utilizing half-normal saline at 167 mL/h. Follow daily lab work (BMP). 08/12/18: Patient's potassium is now within the normal range and will be followed on a daily basis. (10) Hypothyroidism Qualifiers: Hypothyroidism type: unspecified Qualified Code(s): E03.9 - Hypothyroidism , unspecified Is this a current diagnosis for this admission?: Yes Plan: Patient has a history of hypothyroidism and is currently on levothyroxine therapy taking 200 mcg/day. She will be continued on this dose during her hospital course and a TSH will be assessed to evaluate the efficacy of her current treatment. 08/11/18: TSH shows a level of 0.12 which is extremely low. This would reflect an excessive thyroid replacement and as such her levothyroxine therapy will be decreased to 100 mcg daily. A follow-up of her TSH should be obtained in 3-6 weeks when she visits her primary care provider. 08/14/18: A free T3 and a free T4 will be obtained to more definitively evaluate thyroid function (11) Hypertension Qualifiers: Hypertension type: essential hypertension Qualified Code(s): I10 - Essential (primary) hypertension Is this a current diagnosis for this admission?: Yes Plan: Patient gives a history of hypertension and has been noncompliant with her medications. She has no antihypertensive medication on her current medication list. Her blood pressure of the vital signs were monitored closely during her hospital course with appropriate intervention as needed. (12) Morbid obesity due to excess calories Is this a current diagnosis for this admission?: Yes Plan: Patient will be placed on a consistent carbohydrate no concentrated sweets diet of approximately 1500 -1600 izabella daily. This diet should provide gradual weight loss which would be most desirable for this patient's ongoing general health and well-being. Diet education and ongoing evaluation will be offered to the patient at the time of discharge or before. I have informed her that I would be placing her on an appropriate diet for her diabetes and weight loss. 08/11/18: Consultation with the registered dietitian for weight loss and diabetic education and diet management is placed today. - Time Time Spent with patient: 35 or more minutes
[2018-08-15] MEDS: DEXTROSE 5%-WATER 250 ML with PHENYLEPHRINE HCL 40 MG IV PRN ×8 (00:50→18:33)
[2018-08-15] MEDS: DEXTROSE 5%-WATER 1000 ML 1,000 ML with SODIUM BICARBONATE 150 MEQ IV PRN ×12 (00:51→23:16)
[2018-08-15] MEDS: AMPICILLIN SODIUM/SULBACTAM NA 3 GM in NORMAL SALINE 100 ML IV SCH ×4 (02:04→20:50)
[2018-08-15] MEDS: PANTOPRAZOLE SODIUM 40 MG VIAL IV SCH ×2 (05:37→17:13)
[2018-08-15] MEDS: MIDAZOLAM HCL 50 MG/100 ML RTUINJ IV PRN ×4 (05:37→23:16)
[2018-08-15] MEDS: LEVOTHYROXINE SODIUM 0.1 MG TABLET PO SCH (05:38)
[2018-08-15 06:02] LABS: ARTERIAL BLOOD BASE EXCESS 0.3 mmol/L; ARTERIAL BLOOD H2CO3 0.82 mmol/L (1.05-1.35); ARTERIAL BLOOD O2 SATURATION 98.7 % (94-98); ARTERIAL BLOOD PCO2 27.4 mmHg (35-45); ARTERIAL BLOOD PH 7.52 (7.35-7.45); ARTERIAL BLOOD TOTAL CO2 22.9 mmol/L (21-25); HEMATOCRIT 23.6 % (36.0-47.0); HEMOGLOBIN 8.3 g/dL (12.0-15.5); MEAN CORPUSCULAR HEMOGLOBIN 31.7 pg (27.0-33.4); MEAN CORPUSCULAR HGB CONC 35.4 g/dL (32.0-36.0); MEAN CORPUSCULAR VOLUME 90 fl (80-97); PLATELET COUNT 136 10^3/uL (150-450); RED BLOOD COUNT 2.63 10^6/uL (3.72-5.28); RED CELL DISTRIBUTION WIDTH 15.2 % (11.5-14.0)
[2018-08-15 06:12] LABS: ARTERIAL BLOOD FIO2 40%
[2018-08-15 06:17] LABS: ALANINE AMINOTRANSFERASE 30 U/L (9-52); ALBUMIN 1.9 g/dL (3.5-5.0); ALKALINE PHOSPHATASE 276 U/L (38-126); ANION GAP 13 (5-19); ASPARTATE AMINO TRANSFERASE 99 U/L (14-36); BILIRUBIN,DIRECT 2.1 mg/dL (0.0-0.4); BILIRUBIN,TOTAL 2.6 mg/dL (0.2-1.3); BLOOD UREA NITROGEN 43 mg/dL (7-20); CHLORIDE 91 mmol/L (98-107); GLUCOSE 312 mg/dL (75-110); PHOSPHORUS 3.4 mg/dL (2.5-4.5); SODIUM 126.4 mmol/L (137-145); TOTAL PROTEIN 5.4 g/dL (6.3-8.2)
[2018-08-15 06:30] LABS: CALCIUM 6.4 mg/dL (8.4-10.2)
[2018-08-15 06:31] LABS: CARBON DIOXIDE 22 mmol/L (22-30)
[2018-08-15 06:32] LABS: FREE T3 2.56 pg/mL (2.77-5.27); FREE T4 (FREE THYROXINE) 1.01 ng/dL (0.78-2.19)
--- NOTE | 2018-08-15 06:32 | RADIOLOGY REPORT (SQ) ---
CLINICAL HISTORY: resp failure COMPARISON: August 14, 2018. TECHNIQUE: XR CHEST 2 VIEWS 08/15/2018 6:00 AM CDT FINDINGS: Cardiac silhouette is enlarged. Lungs are clear without consolidation, atelectasis, mass or edema. There is no pleural effusion. There is no pneumothorax. There are no acute osseous findings. Endotracheal tube tip is in the midtrachea. Right chest port catheter tip is in the mid to lower SVC. IMPRESSION: No change.
[2018-08-15 06:43] LABS: ABSOLUTE LYMPHOCYTES# (MANUAL) 1.2 10^3/uL (0.5-4.7); ABSOLUTE MONOCYTES # (MANUAL) 1.5 10^3/uL (0.1-1.4); ABSOLUTE NEUTROPHILS# (MANUAL) 27.7 10^3/uL (1.7-8.2); BAND NEUTROPHILS % (MANUAL) 6 % (3-5); BASOPHILS % (MANUAL) 0 % (0-2); EOSINOPHILS % (MANUAL) 1 % (0-6); LYMPHOCYTES % (MANUAL) 4 % (13-45); MONOCYTES % (MANUAL) 5 % (3-13); SEGMENTED NEUTROPHILS % (MAN) 84 % (42-78); TOTAL CELLS COUNTED 100
[2018-08-15 06:44] LABS: ANISOCYTOSIS SLIGHT; PLATELET COMMENT DECREASED; POLYCHROMASIA SLIGHT
[2018-08-15 07:06] LABS: WHITE BLOOD COUNT 30.8 10^3/uL (4.0-10.5)
[2018-08-15] MEDS ORDERED: POTASSIUM CHLORIDE 20 MEQ/50 ML RTU IV ONE (08:00)
[2018-08-15] MEDS: DOCUSATE SODIUM 100 MG CAPSULE PO SCH ×2 (09:59→17:11)
[2018-08-15] MEDS: PREGABALIN 50 MG CAPSULE PO SCH ×2 (09:59→17:12)
[2018-08-15] MEDS: FAMOTIDINE 20 MG TABLET PO SCH ×2 (09:59→21:46)
[2018-08-15] MEDS ORDERED: POTASSI CL 20 MEQ/50 ML RIDER 20 MEQ/50 ML RTUPB IV ONE (10:00)
--- NOTE | 2018-08-15 10:04 | PDOC PROGRESS REPORT ---
Subjective Progress Note for:: 08/15/18 Subjective:: sedated, intubated Reason For Visit: ACUTE RENAL FAILURE Physical Exam Vital Signs: Temp Pulse Resp BP Pulse Ox 99.1 F 68 20 95/53 L 95 08/15/18 07:55 08/15/18 07:55 08/15/18 07:55 08/15/18 07:55 08/15/18 07:55 Intake & Output 08/14/18 08/15/18 08/16/18 06:59 06:59 06:59 Intake Total 3492 8405 1000 Output Total 675 1105 45 Balance 2817 7300 955 Weight 133 kg 140 kg Extremities exam: PRESENT: other - LUE: hand and forearm warm, diffuse edema, skin normal color, no spontaneous movement; nonpalpable radial pulse Results Laboratory Results: 08/15/18 05:50 08/15/18 05:50 08/14/18 08/14/18 08/14/18 10:15 10:15 15:15 WBC RBC Hgb Hct MCV MCH MCHC RDW Plt Count Seg Neutrophils % Lymphocytes % Monocytes % Eosinophils % Basophils % Absolute Neutrophils Absolute Lymphocytes Absolute Monocytes Absolute Eosinophils Absolute Basophils Carbonic Acid HCO3/H2CO3 Ratio ABG pH ABG pCO2 ABG pO2 ABG HCO3 ABG O2 Saturation ABG Base Excess FiO2 Sodium Potassium Chloride Carbon Dioxide Anion Gap BUN Creatinine Est GFR ( Amer) Est GFR (Non-Af Amer) Glucose Lactic Acid Cancelled 4.0 H 4.6 H Calcium Phosphorus Magnesium Total Bilirubin AST ALT Alkaline Phosphatase Total Protein Albumin Free T4 Free T3 pg/mL 08/15/18 08/15/18 08/15/18 05:50 05:50 05:50 WBC 30.8 H* RBC 2.63 L Hgb 8.3 L Hct 23.6 L MCV 90 MCH 31.7 MCHC 35.4 RDW 15.2 H Plt Count 136 L Seg Neutrophils % Not Reportable Lymphocytes % Not Reportable Monocytes % Not Reportable Eosinophils % Not Reportable Basophils % Not Reportable Absolute Neutrophils Not Reportable Absolute Lymphocytes Not Reportable Absolute Monocytes Not Reportable Absolute Eosinophils Not Reportable Absolute Basophils Not Reportable Carbonic Acid 0.82 L HCO3/H2CO3 Ratio 26:1 ABG pH 7.52 H ABG pCO2 27.4 L ABG pO2 117.0 H ABG HCO3 22.0 ABG O2 Saturation 98.7 H ABG Base Excess 0.3 FiO2 40% Sodium 126.4 L Potassium 3.0 L* Chloride 91 L Carbon Dioxide 22 D Anion Gap 13 BUN 43 H Creatinine 2.03 H Est GFR ( Amer) 30 L Est GFR (Non-Af Amer) 25 L Glucose 312 H Lactic Acid Calcium 6.4 L* Phosphorus 3.4 Magnesium 1.4 L Total Bilirubin 2.6 H AST 99 H ALT 30 Alkaline Phosphatase 276 H Total Protein 5.4 L Albumin 1.9 L Free T4 Free T3 pg/mL 08/15/18 08/15/18 05:50 05:50 WBC RBC Hgb Hct MCV MCH MCHC RDW Plt Count Seg Neutrophils % Lymphocytes % Monocytes % Eosinophils % Basophils % Absolute Neutrophils Absolute Lymphocytes Absolute Monocytes Absolute Eosinophils Absolute Basophils Carbonic Acid HCO3/H2CO3 Ratio ABG pH ABG pCO2 ABG pO2 ABG HCO3 ABG O2 Saturation ABG Base Excess FiO2 Sodium Potassium Chloride Carbon Dioxide Anion Gap BUN Creatinine Est GFR ( Amer) Est GFR (Non-Af Amer) Glucose Lactic Acid 4.1 H Calcium Phosphorus Magnesium Total Bilirubin AST ALT Alkaline Phosphatase Total Protein Albumin Free T4 1.01 Free T3 pg/mL 2.56 L 08/11/18 04:05 NT-Pro-B Natriuret Pep 913 H Impressions: Hip X-Ray 08/10/18 12:23 IMPRESSION: NEGATIVE STUDY OF THE RIGHT AND LEFT HIPS AND PELVIS. NO RADIOGRAPHIC EVIDENCE OF ACUTE INJURY. Knee X-Ray 08/10/18 12:24 IMPRESSION: Nondisplaced fracture proximal left fibula. KUB X-Ray 08/14/18 12:07 IMPRESSION: High position of nasogastric tube. Chest X-Ray 08/15/18 06:00 IMPRESSION: No change. Assessment & Plan - Diagnosis (1) Need for intravenous access Is this a current diagnosis for this admission?: Yes (2) Arterial line in place Is this a current diagnosis for this admission?: Yes - Plan Summary Plan Summary: A/ S/p placement of brachial arterial line good correlation between NIBP and brachial arterial line measurements P/ heparin flush of left brahial artery line remove brachia artery line by 48-72 hrs after insertion or if no longer needed I will sign off
[2018-08-15] MEDS: MEROPENEM 1 GM in NORMAL SALINE 50 ML IV SCH ×2 (10:07→21:18)
[2018-08-15] MEDS: ENOXAPARIN SODIUM INJ 40 MG/0.4 ML DISP.SYRIN SUBCUT SCH (10:08)
[2018-08-15] MEDS: MAGNESIUM SULFATE/D5W 1 GM/100 ML RTUPB IV SCH ×2 (10:08→11:37)
[2018-08-15] MEDS: INSULIN GLARGINE,HUM.REC.ANLOG 300 UNIT/3 ML INSULN.PEN SUBCUT SCH ×2 (10:50→21:19)
--- NOTE | 2018-08-15 11:09 | PDOC PROGRESS REPORT ---
Subjective Progress Note for:: 08/15/18 Subjective:: This is a morbidly obese 58-year-old female who originally presented on August 10, 2018. She had been having progressive weakness with increased nausea. Her oral intake decreased significantly. This included her oral medications. This led to multiple falls and significantly increased weakness requiring a wheelchair. She would even have to crawl to get around on occasion. Intermittently she would exhibit dyspnea, discomfort in her legs and buttocks as well as the dorsum of each foot. They were hypersensitive. She has a history of pilonidal cyst and thought that she could be developing another but this proved to be negative. Initial evaluation revealed elevated serum creatinine and potassium as well as her blood glucose. She had a leukocytosis as well as decreased hemoglobin. She is currently intubated and sedated therefore she cannot contribute to the encounter today. Reason For Visit: ACUTE RENAL FAILURE Physical Exam Vital Signs: Temp Pulse Resp BP Pulse Ox 99.1 F 68 20 95/53 L 95 08/15/18 07:55 08/15/18 07:55 08/15/18 07:55 08/15/18 07:55 08/15/18 07:55 Intake & Output 08/14/18 08/15/18 08/16/18 06:59 06:59 06:59 Intake Total 3492 8405 1000 Output Total 675 1105 45 Balance 2817 7300 955 Weight 133 kg 140 kg General appearance: PRESENT: no acute distress, morbidly obese, other - She continues on IV sedation. Head exam: PRESENT: atraumatic, normocephalic Eye exam: PRESENT: conjunctiva pale. ABSENT: scleral icterus Ear exam: PRESENT: normal external ear exam Mouth exam: PRESENT: other - Endotracheal tube in place Throat exam: PRESENT: other - Unable to assess due to endotracheal intubation Neck exam: PRESENT: other - The patient has a very large neck.. ABSENT: carotid bruit, JVD, tracheal deviation Respiratory exam: PRESENT: clear to auscultation karla, symmetrical, other. ABSENT: rales, rhonchi - The patient remains intubated on mechanical ventilation., wheezes Cardiovascular exam: PRESENT: RRR, other - No additional heart sounds.. ABSENT : rubs Pulses: PRESENT: other - Diminished pedal pulses positive by Doppler exam. GI/Abdominal exam: PRESENT: normal bowel sounds, soft, other - Pendulous abdomen.. ABSENT: mass, rebound, tenderness Rectal exam: PRESENT: deferred Gentrourinary exam: PRESENT: indwelling catheter Extremities exam: ABSENT: pedal edema Musculoskeletal exam: PRESENT: normal inspection Neurological exam: PRESENT: other - Currently sedated Skin exam: PRESENT: pallor, warm Results Laboratory Results: 08/15/18 05:50 08/15/18 05:50 08/14/18 08/14/18 08/14/18 10:15 10:15 15:15 WBC RBC Hgb Hct MCV MCH MCHC RDW Plt Count Seg Neutrophils % Lymphocytes % Monocytes % Eosinophils % Basophils % Absolute Neutrophils Absolute Lymphocytes Absolute Monocytes Absolute Eosinophils Absolute Basophils Carbonic Acid HCO3/H2CO3 Ratio ABG pH ABG pCO2 ABG pO2 ABG HCO3 ABG O2 Saturation ABG Base Excess FiO2 Sodium Potassium Chloride Carbon Dioxide Anion Gap BUN Creatinine Est GFR ( Amer) Est GFR (Non-Af Amer) Glucose Lactic Acid Cancelled 4.0 H 4.6 H Calcium Phosphorus Magnesium Total Bilirubin AST ALT Alkaline Phosphatase Total Protein Albumin Free T4 Free T3 pg/mL 08/15/18 08/15/18 08/15/18 05:50 05:50 05:50 WBC 30.8 H* RBC 2.63 L Hgb 8.3 L Hct 23.6 L MCV 90 MCH 31.7 MCHC 35.4 RDW 15.2 H Plt Count 136 L Seg Neutrophils % Not Reportable Lymphocytes % Not Reportable Monocytes % Not Reportable Eosinophils % Not Reportable Basophils % Not Reportable Absolute Neutrophils Not Reportable Absolute Lymphocytes Not Reportable Absolute Monocytes Not Reportable Absolute Eosinophils Not Reportable Absolute Basophils Not Reportable Carbonic Acid 0.82 L HCO3/H2CO3 Ratio 26:1 ABG pH 7.52 H ABG pCO2 27.4 L ABG pO2 117.0 H ABG HCO3 22.0 ABG O2 Saturation 98.7 H ABG Base Excess 0.3 FiO2 40% Sodium 126.4 L Potassium 3.0 L* Chloride 91 L Carbon Dioxide 22 D Anion Gap 13 BUN 43 H Creatinine 2.03 H Est GFR ( Amer) 30 L Est GFR (Non-Af Amer) 25 L Glucose 312 H Lactic Acid Calcium 6.4 L* Phosphorus 3.4 Magnesium 1.4 L Total Bilirubin 2.6 H AST 99 H ALT 30 Alkaline Phosphatase 276 H Total Protein 5.4 L Albumin 1.9 L Free T4 Free T3 pg/mL 08/15/18 08/15/18 05:50 05:50 WBC RBC Hgb Hct MCV MCH MCHC RDW Plt Count Seg Neutrophils % Lymphocytes % Monocytes % Eosinophils % Basophils % Absolute Neutrophils Absolute Lymphocytes Absolute Monocytes Absolute Eosinophils Absolute Basophils Carbonic Acid HCO3/H2CO3 Ratio ABG pH ABG pCO2 ABG pO2 ABG HCO3 ABG O2 Saturation ABG Base Excess FiO2 Sodium Potassium Chloride Carbon Dioxide Anion Gap BUN Creatinine Est GFR ( Amer) Est GFR (Non-Af Amer) Glucose Lactic Acid 4.1 H Calcium Phosphorus Magnesium Total Bilirubin AST ALT Alkaline Phosphatase Total Protein Albumin Free T4 1.01 Free T3 pg/mL 2.56 L 08/11/18 04:05 NT-Pro-B Natriuret Pep 913 H Impressions: Hip X-Ray 08/10/18 12:23 IMPRESSION: NEGATIVE STUDY OF THE RIGHT AND LEFT HIPS AND PELVIS. NO RADIOGRAPHIC EVIDENCE OF ACUTE INJURY. Knee X-Ray 08/10/18 12:24 IMPRESSION: Nondisplaced fracture proximal left fibula. KUB X-Ray 08/14/18 12:07 IMPRESSION: High position of nasogastric tube. Chest X-Ray 08/15/18 06:00 IMPRESSION: No change. Assessment & Plan - Diagnosis (1) Sepsis due to Escherichia coli with acute renal failure Is this a current diagnosis for this admission?: Yes Plan: The patient meets sepsis criteria secondary to the E. coli cystitis. Because of hypotension she remains on intravenous saline, Jt-Synephrine and vasopressin. Her blood pressure is slowly improving and these medications are being titrated according to the protocol. Her white cell count is improved and is 30.8 down from 40 yesterday. She remains on IV fluid and dual antibiotic therapy. She continues on meropenem 1 g IV every 8 hours and Unasyn 3 g IV every 6 hours for enterococcus isolated in her urine in addition to the E. coli. She also remains on bicarbonate infusion for metabolic acidosis. Recheck serum chemistries tomorrow as well as follow-up microbiology for secondary organism isolated. (2) DIANNE (acute kidney injury) Is this a current diagnosis for this admission?: Yes Plan: The patient's serum creatinine continues to improve. She is 2.03 today and this is down from 2.8 yesterday. Her estimated GFR is 25. As noted above she continues on IV fluids, bicarbonate and intravenous pressor support. Serum chemistries are ordered for tomorrow. (3) Escherichia coli urinary tract infection Is this a current diagnosis for this admission?: Yes Plan: As noted above the patient continues her meropenem for the E. coli. After a spike in her white blood cells per count today is 30.8 down from 40. Complete antibiotic therapy. Of note, I will follow up the microbiology results for a possible second organism (enterococcus). She remains on Unasyn to cover staph and strep. (4) Metabolic acidosis Is this a current diagnosis for this admission?: Yes Plan: She continues on her intravenous bicarbonate with intravenous fluid. Serum CO2 was 22 today. Adjust medications based on serum chemistries. (5) Diabetes mellitus type 2 in obese Is this a current diagnosis for this admission?: Yes Plan: Continue current point of care glucose testing every 6 hours with appropriate insulin dosing. Lantus 18 units every 12 hours as well as her Humalog sliding scale is being administered. Her insulin dosing may need adjustment when her dextrose containing IV fluids are weaned off. (6) Generalized weakness Is this a current diagnosis for this admission?: Yes Plan: Currently difficult to assess during her sedated and intubated state. Therapy consults will be obtained when appropriate. Her generalized weakness should also improve significantly with the resolution of her sepsis. (7) Hyperesthesia Is this a current diagnosis for this admission?: Yes Plan: The hyperesthesia is most likely exacerbation of her diabetic neuropathy due to the sepsis and discontinuation of her routine medications at home. Her hyperesthesia is impossible to assess while she is sedated. Reassess when appropriate. (8) Hypothyroidism Qualifiers: Hypothyroidism type: unspecified Qualified Code(s): E03.9 - Hypothyroidism , unspecified Is this a current diagnosis for this admission?: Yes Plan: Patient was previously on 200 mcg of levothyroxine daily. Her TSH on admission was quite low and her dose was decreased to 100 mcg daily. Follow-up laboratory studies should be obtained in approximately 8 weeks. (9) Hyperkalemia Is this a current diagnosis for this admission?: Yes Plan: Due to the aggressive treatment for her hyperkalemia the patient's serum potassium is now low. Intravenous potassium chloride replacement has been ordered. Continue to monitor potassium level. (10) Hypomagnesemia Is this a current diagnosis for this admission?: Yes Plan: The patient's serum magnesium was low today. 2 g of magnesium sulfate has been ordered. Recheck serum magnesium level tomorrow. - Time Time Spent with patient: 35 or more minutes Medications reviewed and adjusted accordingly: Yes
[2018-08-15] MEDS: INSULIN LISPRO 100 UNIT/ML 3 ML VIAL SUBCUT PRN ×2 (18:17→23:26)
[2018-08-15] MEDS: DEXTROSE 5%-WATER 250 ML with VASOPRESSIN 100 UNIT IV PRN ×2 (23:17)
[2018-08-16] MEDS: AMPICILLIN SODIUM/SULBACTAM NA 3 GM in NORMAL SALINE 100 ML IV SCH (02:18)
[2018-08-16] MEDS: DEXTROSE 5%-WATER 250 ML with PHENYLEPHRINE HCL 40 MG IV PRN ×8 (02:19→21:51)
[2018-08-16] MEDS: DEXTROSE 5%-WATER 1000 ML 1,000 ML with SODIUM BICARBONATE 150 MEQ IV PRN ×2 (04:00)
[2018-08-16 04:27] LABS: HEMATOCRIT 22.4 % (36.0-47.0); HEMOGLOBIN 8.3 g/dL (12.0-15.5); MEAN CORPUSCULAR HEMOGLOBIN 32.7 pg (27.0-33.4); MEAN CORPUSCULAR HGB CONC 36.8 g/dL (32.0-36.0); MEAN CORPUSCULAR VOLUME 89 fl (80-97); PLATELET COUNT 117 10^3/uL (150-450); RED BLOOD COUNT 2.53 10^6/uL (3.72-5.28); RED CELL DISTRIBUTION WIDTH 15.1 % (11.5-14.0)
[2018-08-16 04:36] LABS: ALANINE AMINOTRANSFERASE 22 U/L (9-52); ALBUMIN 1.9 g/dL (3.5-5.0); ALKALINE PHOSPHATASE 277 U/L (38-126); ANION GAP 10 (5-19); ASPARTATE AMINO TRANSFERASE 67 U/L (14-36); BILIRUBIN,DIRECT 1.5 mg/dL (0.0-0.4); BILIRUBIN,TOTAL 2.1 mg/dL (0.2-1.3); BLOOD UREA NITROGEN 36 mg/dL (7-20); CARBON DIOXIDE 29 mmol/L (22-30); CHLORIDE 85 mmol/L (98-107); GLUCOSE 258 mg/dL (75-110); PHOSPHORUS 2.2 mg/dL (2.5-4.5); SODIUM 124.2 mmol/L (137-145); TOTAL PROTEIN 5.2 g/dL (6.3-8.2)
[2018-08-16 04:44] LABS: POTASSIUM 2.6 mmol/L (3.6-5.0)
[2018-08-16 04:51] LABS: ABSOLUTE LYMPHOCYTES# (MANUAL) 0.6 10^3/uL (0.5-4.7); ABSOLUTE MONOCYTES # (MANUAL) 1.5 10^3/uL (0.1-1.4); ABSOLUTE NEUTROPHILS# (MANUAL) 12.8 10^3/uL (1.7-8.2); BASOPHILS % (MANUAL) 0 % (0-2); EOSINOPHILS % (MANUAL) 1 % (0-6); LYMPHOCYTES % (MANUAL) 4 % (13-45); MONOCYTES % (MANUAL) 10 % (3-13); SEGMENTED NEUTROPHILS % (MAN) 85 % (42-78); TOTAL CELLS COUNTED 100
[2018-08-16 04:53] LABS: ANISOCYTOSIS SLIGHT; PLATELET COMMENT DECREASED; POLYCHROMASIA SLIGHT; TOXIC GRANULATION SLIGHT
[2018-08-16] MEDS ORDERED: CALCIUM GLUCONATE 1000 MG/10 ML INJ IV ONE ×2 (05:11→14:50)
[2018-08-16] MEDS ORDERED: CALCIUM GLUCONATE 1,000 MG in DEXTROSE 5%-WATER 50 ML IV ONE (05:15)
[2018-08-16] MEDS ORDERED: MAGNESIUM SULFATE/D5W 1 GM/100 ML RTUPB IV ONE (05:15)
[2018-08-16] MEDS: PANTOPRAZOLE SODIUM 40 MG VIAL IV SCH ×2 (05:18→17:54)
[2018-08-16] MEDS: POTASSIUM CHLORIDE 20 MEQ/50 ML RTU IV SCH ×5 (05:23→17:54)
[2018-08-16] MEDS: LEVOTHYROXINE SODIUM 0.1 MG TABLET PO SCH (05:38)
[2018-08-16] MEDS: INSULIN LISPRO 100 UNIT/ML 3 ML VIAL SUBCUT PRN (06:45)
[2018-08-16] MEDS ORDERED: DEXTROSE 5%-WATER 1000 ML 1,000 ML with SODIUM BICARBONATE 150 MEQ IV PRN ×2 (08:31)
[2018-08-16] MEDS ORDERED: PHARMACY COMMUNICATION ORDER MC NR (09:30)
[2018-08-16] MEDS ORDERED: MAGNESIUM HYDROXIDE SUSP 30 ML UDCUP NG PRN (10:00)
[2018-08-16] MEDS ORDERED: ONDANSETRON 4 MG TAB.RAPDIS NG PRN (10:00)
[2018-08-16] MEDS ORDERED: MAG HYDROX/AL HYDROX/SIMETH SUSP 30 ML UDCUP NG PRN (10:00)
[2018-08-16] MEDS ORDERED: CEFTRIAXONE 1 GM/D5W RTU 1 GM/50 ML RTUPB IV SCH (10:00)
[2018-08-16] MEDS ORDERED: TEMAZEPAM 15 MG CAPSULE NG PRN (10:00)
[2018-08-16] MEDS ORDERED: DEXTROSE 40% GEL 15 GM TUBE NG PRN ×2 (10:00)
[2018-08-16] MEDS: MIDAZOLAM HCL 50 MG/100 ML RTUINJ IV PRN ×2 (10:33→19:54)
[2018-08-16] MEDS: DOCUSATE SODIUM 100 MG/10 ML UDC NG SCH ×2 (10:34→17:54)
[2018-08-16] MEDS: INSULIN GLARGINE,HUM.REC.ANLOG 300 UNIT/3 ML INSULN.PEN SUBCUT SCH ×2 (10:35→21:52)
[2018-08-16] MEDS: AMPICILLIN SODIUM 500 MG in NORMAL SALINE 25 ML IV SCH ×3 (10:35→21:49)
[2018-08-16] MEDS: FAMOTIDINE 20 MG TABLET NG SCH ×2 (10:36→21:50)
[2018-08-16] MEDS: PREGABALIN 50 MG CAPSULE NG SCH ×2 (10:36→17:54)
[2018-08-16] MEDS: ENOXAPARIN SODIUM INJ 40 MG/0.4 ML DISP.SYRIN SUBCUT SCH (10:36)
--- NOTE | 2018-08-16 10:51 | RADIOLOGY REPORT (SQ) ---
EXAM DESCRIPTION: CHEST SINGLE VIEW COMPLETED DATE/TIME: 08/16/2018 10:10 am REASON FOR STUDY: ETT placement COMPARISON: 08/15/2018 NUMBER OF VIEWS: One view. TECHNIQUE: Single frontal radiographic image of the chest acquired. LIMITATIONS: Body habitus. FINDINGS: LUNGS AND PLEURA: Low lung volumes. Patchy airspace disease in the left lower lung. No p neumothorax. MEDIASTINUM AND HEART: Stable heart size and mediastinal structures. SUPPORT DEVICES: Appropriate location without change. BONY STRUCTURES: No acute findings. HARDWARE: None. OTHER: No other significant finding. IMPRESSION: Left lower lobe atelectasis or pneumonia. No significant change. Reading location - IP/workstation name: [email or web address]
--- NOTE | 2018-08-16 10:52 | RADIOLOGY REPORT (SQ) ---
EXAM DESCRIPTION: KUB/ABDOMEN (SINGLE VIEW) COMPLETED DATE/TIME: 08/16/2018 10:10 am REASON FOR STUDY: NG tube placement COMPARISON: None. NUMBER OF VIEWS: One view. TECHNIQUE: Supine radiographic image of the lower chest and upper abdomen acquired. LIMITATIONS: None. FINDINGS: Nasogastric tube tip overlying the stomach. Normal bowel gas pattern. Clips in the left and right upper quadrants. IMPRESSION: Nasogastric tube in the stomach. Reading location - IP/workstation name: [email or web address]
--- NOTE | 2018-08-16 10:53 | PDOC PROGRESS REPORT ---
Subjective Progress Note for:: 08/16/18 Subjective:: This is a morbidly obese 58-year-old female who originally presented on August 10, 2018. She had been having progressive weakness with increased nausea. Her oral intake decreased significantly. This included her oral medications. This led to multiple falls and significantly increased weakness requiring a wheelchair. She would even have to crawl to get around on occasion. Intermittently she would exhibit dyspnea, discomfort in her legs and buttocks as well as the dorsum of each foot. They were hypersensitive. She has a history of pilonidal cyst and thought that she could be developing another but this proved to be negative. Initial evaluation revealed elevated serum creatinine and potassium as well as her blood glucose. She had a leukocytosis as well as decreased hemoglobin. She is currently intubated and sedated therefore she cannot contribute to the encounter today. 08/16 The patient has been stable. Electrolyte replacement has been the biggest clinical issue. He is not exhibited any abnormalities on telemetry due to her electrolyte abnormalities. A nasogastric tube has been placed so that we can resume her "oral "medications. In addition we can initiate nutrition. Reason For Visit: ACUTE RENAL FAILURE Physical Exam Vital Signs: Temp Pulse Resp BP Pulse Ox 98.8 F 64 24 H 106/55 L 97 08/16/18 08:00 08/16/18 08:00 08/16/18 08:47 08/16/18 08:00 08/16/18 08:47 Intake & Output 08/15/18 08/16/18 08/17/18 06:59 06:59 06:59 Intake Total 8455 6653 89 Output Total 1105 1940 275 Balance 7350 4713 -186 Weight 140 kg 146.1 kg General appearance: PRESENT: no acute distress, morbidly obese, other - The patient is sedated and on a ventilator. Head exam: PRESENT: atraumatic, normocephalic Eye exam: PRESENT: conjunctiva pale, other - ETT tube and nasogastric tube in place.. ABSENT: scleral icterus Ear exam: PRESENT: normal external ear exam Mouth exam: PRESENT: other Teeth exam: PRESENT: other - Unable to assess Throat exam: PRESENT: other - Unable to assess Neck exam: ABSENT: lymphadenopathy, tracheal deviation Respiratory exam: PRESENT: clear to auscultation karla, symmetrical, other - Rate is consistent with ventilator settings. ABSENT: rales, rhonchi, wheezes Cardiovascular exam: PRESENT: RRR, +S1, +S2, other Pulses: PRESENT: normal radial pulses, other - Diminished dorsalis pedis pulses but detectable by Doppler Vascular exam: PRESENT: other - Feet are warm to touch with no discoloration GI/Abdominal exam: PRESENT: hypoactive bowel sounds, soft, other - Pendulous abdomen. ABSENT: distended, tenderness Rectal exam: PRESENT: deferred Gentrourinary exam: PRESENT: indwelling catheter Extremities exam: PRESENT: other - Trace pedal edema. Upper extremities puffy but without pitting edema Musculoskeletal exam: PRESENT: normal inspection Neurological exam: PRESENT: other - Sedated Psychiatric exam: PRESENT: other - Sedated. No suggestion of discomfort by affect. Skin exam: PRESENT: dry, normal color, warm Results Laboratory Results: 08/16/18 04:20 08/16/18 04:20 08/16/18 08/16/18 04:20 04:20 WBC 15.0 H RBC 2.53 L Hgb 8.3 L Hct 22.4 L MCV 89 MCH 32.7 MCHC 36.8 H RDW 15.1 H Plt Count 117 L Seg Neutrophils % Not Reportable Lymphocytes % Not Reportable Monocytes % Not Reportable Eosinophils % Not Reportable Basophils % Not Reportable Absolute Neutrophils Not Reportable Absolute Lymphocytes Not Reportable Absolute Monocytes Not Reportable Absolute Eosinophils Not Reportable Absolute Basophils Not Reportable Sodium 124.2 L Potassium 2.6 L* Chloride 85 L Carbon Dioxide 29 Anion Gap 10 BUN 36 H Creatinine 1.56 H Est GFR ( Amer) 41 L Est GFR (Non-Af Amer) 34 L Glucose 258 H Calcium 6.0 L* Phosphorus 2.2 L Magnesium 1.5 L Total Bilirubin 2.1 H AST 67 H ALT 22 Alkaline Phosphatase 277 H Total Protein 5.2 L Albumin 1.9 L 08/11/18 04:05 NT-Pro-B Natriuret Pep 913 H Impressions: Hip X-Ray 08/10/18 12:23 IMPRESSION: NEGATIVE STUDY OF THE RIGHT AND LEFT HIPS AND PELVIS. NO RADIOGRAPHIC EVIDENCE OF ACUTE INJURY. Knee X-Ray 08/10/18 12:24 IMPRESSION: Nondisplaced fracture proximal left fibula. Status: Image reviewed by me Assessment & Plan - Diagnosis (1) Sepsis due to Escherichia coli with acute renal failure Is this a current diagnosis for this admission?: Yes Plan: The patient meets sepsis criteria secondary to the E. coli/enterococcus faecalis cystitis. The patient continues to be stable. We are weaning IV pressors (Jt-Synephrine and vasopressin )as tolerated. Her blood pressure has been stable. Her white cell count is improved and decreased from 30.8 to 15. Because of her metabolic alkalosis her bicarbonate infusion has been decreased with a goal of tapering to off. (2) Acute hypoxemic respiratory failure Is this a current diagnosis for this admission?: Yes Plan: The patient has been stable on the ventilator. We have initiated weaning trials. Her current settings are SIMV with a volume of 500, rate of 24 and 30% FiO2. She is on pressure support 10 and PEEP of 5. Chest x-ray for today is pending. (3) DIANNE (acute kidney injury) Is this a current diagnosis for this admission?: Yes Plan: The patient likely has acute kidney injury due to ATN related to her sepsis. The patient's serum creatinine continues to improve. Serum creatinine is 1.56 today which is down from 2.03 yesterday. As noted above she continues on IV fluids, bicarbonate and intravenous pressor support. Serum chemistries will be obtained this afternoon mostly related to her multiple electrolyte abnormalities. Metabolic panel will be ordered for the morning as well. (4) Escherichia coli urinary tract infection Is this a current diagnosis for this admission?: Yes Plan: The final culture results were available for the E. coli. It was pond sensitive. The IV antibiotics were changed to ampicillin 500 mg every 6 hours for 5 additional days. This takes into account her decreased renal function. (5) Enterococcus faecalis infection Is this a current diagnosis for this admission?: Yes Plan: The final urine culture results also included greater than 100,000 colony- forming units of Enterococcus faecalis. Fortunately this is also sensitive to ampicillin (already in place for E. coli) and so her Unasyn was discontinued. She will receive 5 additional days of ampicillin 500 mg every 6 hours to complete her therapy. (6) Metabolic alkalosis Is this a current diagnosis for this admission?: Yes Plan: With aggressive therapy her metabolic acidosis has been resolved and she now has metabolic alkalosis. I am decreasing her bicarbonate infusion and will repeat a blood gas this afternoon. We should be able to taper her bicarbonate infusion to off. (7) Diabetes mellitus type 2 in obese Is this a current diagnosis for this admission?: Yes Plan: Continue current point of care glucose testing every 6 hours with appropriate insulin dosing. Because her fingerstick glucoses have mostly been above 250 I will increase her Lantus to 22 units every 12 hours and continue the Humalog sliding scale. Her insulin dosing may need adjustment when her dextrose containing IV fluids are weaned off as well as to compensate for initiating nutrition. (8) Hyperesthesia Is this a current diagnosis for this admission?: Yes Plan: The hyperesthesia is most likely an exacerbation of her diabetic neuropathy due to the sepsis and discontinuation of her routine medications at is impossible to assess her symptoms while sedated. With the presence of an NG tube and in light of her acute kidney injury we will utilize Lyrica 50 mg twice daily instead of her gabapentin. This should provide adequate control as we wean her pain medications. (9) Generalized weakness Is this a current diagnosis for this admission?: Yes Plan: Once the patient is extubated and off of pressor therapy I will order physical and occupational therapy consults. Due to the severity of her illness her weakness will likely take some time to resolve. (10) Hypothyroidism Qualifiers: Hypothyroidism type: unspecified Qualified Code(s): E03.9 - Hypothyroidism , unspecified Is this a current diagnosis for this admission?: Yes Plan: Now that there is a nasogastric tube present. We will resume dosing of her levothyroxine. (11) Hyperkalemia Is this a current diagnosis for this admission?: Yes Plan: Due to the aggressive treatment for her hyperkalemia the patient's serum potassium is now low. Despite intravenous replacement yesterday her serum potassium is still quite low. She will receive 60 mEq of potassium chloride by IV today and will recheck her electrolytes this afternoon. (12) Hypomagnesemia Is this a current diagnosis for this admission?: Yes Plan: The patient's serum magnesium was still only 1.4. An additional dose of magnesium sulfate has been ordered. Recheck magnesium level this afternoon. - Time Time Spent with patient: 35 or more minutes Medications reviewed and adjusted accordingly: Yes
[2018-08-16 13:12] LABS: ARTERIAL BLOOD BASE EXCESS 8.3 mmol/L; ARTERIAL BLOOD H2CO3 0.87 mmol/L (1.05-1.35); ARTERIAL BLOOD HCO3 29.6 mmol/L (20-24); ARTERIAL BLOOD O2 SATURATION 97.5 % (94-98); ARTERIAL BLOOD PCO2 28.8 mmHg (35-45); ARTERIAL BLOOD PO2 78.9 mmHg (80-100); ARTERIAL BLOOD TOTAL CO2 30.5 mmol/L (21-25)
[2018-08-16 13:15] LABS: ARTERIAL BLOOD FIO2 35%
[2018-08-16 13:16] LABS: ARTERIAL BLOOD PH 7.63 (7.35-7.45)
[2018-08-16 13:44] LABS: ANION GAP 10 (5-19); BLOOD UREA NITROGEN 34 mg/dL (7-20); CARBON DIOXIDE 31 mmol/L (22-30); CHLORIDE 84 mmol/L (98-107); GLUCOSE 193 mg/dL (75-110)
[2018-08-16 13:54] LABS: CALCIUM 6.2 mg/dL (8.4-10.2)
[2018-08-16] MEDS: MORPHINE SULFATE 10 MG/ML INJ IV PRN (14:09)
[2018-08-16] MEDS: POTASSIUM CHLORIDE 20 MEQ/15 ML UDCUP NG SCH ×2 (15:27→21:50)
[2018-08-16] MEDS: NORMAL SALINE 1000 ML 1,000 ML IV PRN ×2 (15:30→21:51)
[2018-08-16] MEDS ORDERED: NOREPINEPHRINE BITARTRATE INJ/PF 4 MG/4 ML SDV IV ONE (16:36)
[2018-08-16] MEDS: DEXTROSE 5%-WATER 250 ML with NOREPINEPHRINE BITARTRATE 4 MG IV PRN ×4 (16:46→21:49)
[2018-08-16 17:34] LABS: ARTERIAL BLOOD BASE EXCESS 4.9 mmol/L; ARTERIAL BLOOD H2CO3 0.96 mmol/L (1.05-1.35); ARTERIAL BLOOD HCO3 27.3 mmol/L (20-24); ARTERIAL BLOOD O2 SATURATION 96.4 % (94-98); ARTERIAL BLOOD PCO2 31.8 mmHg (35-45); ARTERIAL BLOOD PH 7.55 (7.35-7.45); ARTERIAL BLOOD PO2 72.6 mmHg (80-100); ARTERIAL BLOOD TOTAL CO2 28.2 mmol/L (21-25)
[2018-08-16 17:35] LABS: ARTERIAL BLOOD FIO2 35
[2018-08-17] MEDS: AMPICILLIN SODIUM 500 MG in NORMAL SALINE 25 ML IV SCH (02:24)
[2018-08-17] MEDS: DEXTROSE 5%-WATER 250 ML with PHENYLEPHRINE HCL 40 MG IV PRN ×10 (02:24→21:29)
[2018-08-17] MEDS: DEXTROSE 5%-WATER 250 ML with NOREPINEPHRINE BITARTRATE 4 MG IV PRN ×8 (02:24→20:46)
[2018-08-17] MEDS: POTASSIUM CHLORIDE 20 MEQ/15 ML UDCUP NG SCH (05:54)
[2018-08-17] MEDS: LEVOTHYROXINE SODIUM 0.1 MG TABLET NG SCH (05:54)
[2018-08-17] MEDS: NORMAL SALINE 1000 ML 1,000 ML IV PRN (06:31)
[2018-08-17 06:40] LABS: ARTERIAL BLOOD BASE EXCESS -0.1 mmol/L; ARTERIAL BLOOD H2CO3 0.86 mmol/L (1.05-1.35); ARTERIAL BLOOD HCO3 22.3 mmol/L (20-24); ARTERIAL BLOOD O2 SATURATION 95.8 % (94-98); ARTERIAL BLOOD PCO2 28.7 mmHg (35-45); ARTERIAL BLOOD PH 7.51 (7.35-7.45); ARTERIAL BLOOD PO2 70.4 mmHg (80-100); ARTERIAL BLOOD TOTAL CO2 23.2 mmol/L (21-25)
[2018-08-17 06:41] LABS: ARTERIAL BLOOD FIO2 50%; HEMATOCRIT 26.9 % (36.0-47.0); HEMOGLOBIN 9.4 g/dL (12.0-15.5); MEAN CORPUSCULAR HEMOGLOBIN 30.9 pg (27.0-33.4); MEAN CORPUSCULAR HGB CONC 34.8 g/dL (32.0-36.0); MEAN CORPUSCULAR VOLUME 89 fl (80-97); RED BLOOD COUNT 3.03 10^6/uL (3.72-5.28); RED CELL DISTRIBUTION WIDTH 15.8 % (11.5-14.0)
[2018-08-17 06:57] LABS: ANION GAP 15 (5-19); BLOOD UREA NITROGEN 32 mg/dL (7-20); CARBON DIOXIDE 24 mmol/L (22-30); CHLORIDE 87 mmol/L (98-107); GLUCOSE 106 mg/dL (75-110); POTASSIUM 3.2 mmol/L (3.6-5.0); SODIUM 125.5 mmol/L (137-145)
[2018-08-17 07:02] LABS: PLATELET COUNT 80 10^3/uL (150-450)
[2018-08-17 07:03] LABS: WHITE BLOOD COUNT 40.8 10^3/uL (4.0-10.5)
[2018-08-17] MEDS: FAMOTIDINE 20 MG TABLET NG SCH ×2 (10:22→21:22)
[2018-08-17] MEDS: MEROPENEM 1 GM in NORMAL SALINE 50 ML IV SCH ×2 (10:22→21:22)
[2018-08-17] MEDS: DOCUSATE SODIUM 100 MG/10 ML UDC NG SCH ×2 (10:23→18:04)
[2018-08-17] MEDS: PREGABALIN 50 MG CAPSULE NG SCH ×2 (10:23→18:04)
[2018-08-17] MEDS ORDERED: CALCIUM GLUCONATE 1,000 MG in DEXTROSE 5%-WATER 50 ML IV ONE (10:29)
[2018-08-17] MEDS ORDERED: NORMAL SALINE 1000 ML 1,000 ML IV PRN (10:32)
[2018-08-17] MEDS: ENOXAPARIN SODIUM INJ 40 MG/0.4 ML DISP.SYRIN SUBCUT SCH (10:33)
[2018-08-17] MEDS: INSULIN GLARGINE,HUM.REC.ANLOG 300 UNIT/3 ML INSULN.PEN SUBCUT SCH ×2 (11:05→21:34)
[2018-08-17] MEDS ORDERED: CALCIUM GLUCONATE 1000 MG/10 ML INJ IV ONE (11:30)
[2018-08-17] MEDS: ALBUMIN HUMAN 12.5 GM/50 ML RTUINJ IV SCH ×2 (11:31→13:17)
[2018-08-17] MEDS: MAGNESIUM SULFATE/D5W 1 GM/100 ML RTUPB IV SCH ×2 (11:32→13:48)
[2018-08-17] MEDS: POTASSI CL 20 MEQ/50 ML RIDER 20 MEQ/50 ML RTUPB IV SCH ×2 (11:33→14:57)
[2018-08-17] MEDS ORDERED: WATER FOR INJECTION,STERILE 1,000 ML with SODIUM BICARBONATE 150 MEQ IV PRN ×2 (12:00)
--- NOTE | 2018-08-17 13:01 | RADIOLOGY REPORT (SQ) ---
EXAM DESCRIPTION: CT HEAD WITHOUT COMPLETED DATE/TIME: 08/17/2018 12:46 pm REASON FOR STUDY: r/o cva sepsis patient altered mental status COMPARISON: CT brain 07/14/2018 TECHNIQUE: Axial images acquired through the brain without intravenous contrast. Images reviewed wi th bone, brain and subdural windows. Additional sagittal and coronal reconstructions were generated. Images stored on PACS. All CT scanners at this facility use dose modulation, iterative reconstruction, and/or weight based d osing when appropriate to reduce radiation dose to as low as reasonably achievable (ALARA). [facility]: Dose Right [facility]: CareDose [facility]: Dose Right [facility]: Teradose 4D [facility]: Cubeit.fm RADIATION DOSE: CT Rad equipment meets quality standard of care and radiation dose reduction techniq ues were employed. CTDIvol: 48.7 mGy. DLP: 1028 mGy-cm. mGy. LIMITATIONS: Streak artifact through the posterior fossa from metallic dental work and respiratory h ardware. FINDINGS: VENTRICLES: Normal size and contour. CEREBRUM: No masses. No hemorrhage. No midline shift. No evidence for acute infarction. 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 No gross acute changes EXTRAAXIAL SPACES: No fluid collections. No masses. ORBITS AND GLOBE: No intra- or extraconal masses. Normal contour of globe without masses. CALVARIUM: No fracture. PARANASAL SINUSES: No fluid or mucosal thickening. SOFT TISSUES: No mass or hematoma. OTHER: No other significant finding. IMPRESSION: No acute findings EVIDENCE OF ACUTE STROKE: NO. COMMENT: Quality ID # [id number]: Final reports with documentation of one or more dose reduction techniques (e.g., Automated exposure control, adjustment of the mA and/or kV according to patient size, use of iterative reconstruction technique) TECHNICAL DOCUMENTATION: JOB ID: [id number]- All Rights Reserved Reading location - IP/workstation name: [email or web address]
[2018-08-17] MEDS: AMPICILLIN SODIUM/SULBACTAM NA 3 GM in NORMAL SALINE 100 ML IV SCH ×2 (14:05→18:04)
[2018-08-17 15:16] LABS: HEMATOCRIT 24.6 % (36.0-47.0); HEMOGLOBIN 8.6 g/dL (12.0-15.5); MEAN CORPUSCULAR HEMOGLOBIN 31.5 pg (27.0-33.4); MEAN CORPUSCULAR HGB CONC 35.2 g/dL (32.0-36.0); MEAN CORPUSCULAR VOLUME 90 fl (80-97); RED BLOOD COUNT 2.74 10^6/uL (3.72-5.28)
[2018-08-17 15:28] LABS: ANION GAP 16 (5-19); BLOOD UREA NITROGEN 30 mg/dL (7-20); CARBON DIOXIDE 20 mmol/L (22-30); CHLORIDE 93 mmol/L (98-107); GLUCOSE 145 mg/dL (75-110); POTASSIUM 3.5 mmol/L (3.6-5.0); SODIUM 128.7 mmol/L (137-145)
[2018-08-17 15:30] LABS: APPEARANCE,URINE CLOUDY; BILIRUBIN,URINE SMALL (NEGATIVE); COLOR,URINE AMBER; GLUCOSE, URINE 50 mg/dL (NEGATIVE); KETONES,URINE NEGATIVE (NEGATIVE); LEUKOCYTE ESTERASE,URINE MODERATE (NEGATIVE); NITRITE,URINE NEGATIVE (NEGATIVE); PROTEIN,URINE 30 mg/dL (NEGATIVE); URINE SPECIFIC GRAVITY 1.019
[2018-08-17 15:44] LABS: CALCIUM 5.7 mg/dL (8.4-10.2)
[2018-08-17 16:19] LABS: PLATELET COUNT 69 10^3/uL (150-450); WHITE BLOOD COUNT 34.5 10^3/uL (4.0-10.5)
[2018-08-17] MEDS: RINGERS SOLUTION,LACTATED 1,000 ML IV PRN ×2 (16:56→20:28)
[2018-08-17] MEDS ORDERED: RINGERS SOLUTION,LACTATED 500 ML IV ONE (17:15)
--- NOTE | 2018-08-17 19:43 | Progress Note ---
Provider Note Provider Note: ID Consult Note Asked by Pharmacy to review patient's chart and provide input regarding antibiotic therapy. Pt is not seen or examined. Reviewed VS, provider notes, imaging reports, labs. Ms. Watts is a 58 year old woman with PMH including DM, morbid obesity, HTN, hypothyroidism, and chronic pain. She was admitted on 08/10 with c/o progressive weakness at home x 5 days with occasional associated abdominal pain, falls at home and nausea. She stopped taking her home medications. She had no c/o subjective fever, chills, dysuria or hematuria per ED provider note and H&P. Her initial exam was notable for disheveled appearance , ecchymoses on BLE of varying ages, clear lungs, soft abdomen, and tenderness or discomfort to sacral area, buttocks and feet. She had no fever. Initial labs revealed DIANNE with SCr of around 2, hyperkalemia, normal sodium, leukocytosis with WBC 14k, abnormal LFTs with elevations in Tbili, alkaline phosphatase, and AST. U/A and UCx were sent, and >100k CFU E coli and Enterococcus grew from the UCx. Initial labs included CXR that was read as showing no acute radiographic finding and plain films of the L knee that showed nondisplaced L proximal fibula fracture. Pt was admitted for management of DIANNE and metabolic abnormalities including hyperkalemia. On 08/13, pt had had recurrent hypotension despite volume replacement, progressive worsening in metabolic acidosis, increase in WBC count from 14k to 26k. She was suspected of having early sepsis from E coli UTI. Ertapenem was started. Overnight between 08/13-08/14, pt was found to be unarousable, tachypneic secondary to metabolic acidosis, critically ill and unable to protect airways, persistently hypotensive. Levophed was initiated, pt was intubated, blood cultures drawn, and pt transferred to ICU. Around this time, Tmax was 100.8 F, but otherwise patient has not had a fever during hospitalization. Ertapenem was changed to meropenem and Unasyn on 08/14. WBC count on 08/14 was 40k -> 31k on 08/15 -> 15k on 08/16 -> 41k on 08/17 -> 35k today 08/17. Imaging studies have included repat CXR on 08/15 read as showing clear lungs without consoldiation and on 08/15 with patchy airspace disease in L lower lung but also no significance change compared to prior film. Blood cultures from 08/13 show no growth to date. Tracheal aspirate on 08/14 showed no growth to date, no organisms on Gram stain. Repeat tracheal aspirate on 08/16 also has no bacteria on Gram stain and no growth to date. Impression/Recommendations This is a challenging case. The patient had no dysuria reported on admission, and it would be unusual for cystitis to result in septic shock. However, no other source of shock is readily apparent, and blood cultures on 08/13 were drawn after the patient had received at least one dose of Invanz, so it is possible that an E coli bacteremia secondary to a urinary source might have been present but obscured by receiving the antibiotic prior to the cultures being drawn. The E coli (and also the Enterococcus in her urine) were susceptible to IV ampicillin. As long as the patient is hemodynamically and clinically stable (ventilator and vasopressor requirements, physical exam findings), it is entirely reasonable to de-escalate to renally dose adjusted IV ampicillin, considering that no other source has been found. I agree with current plans to continue IV ampicillin for 5 additional days (or a total of 10 days of therapy). Recommend discontinuing meropenem as no other source of infection has been found to necessitate its use over that of IV ampicillin. Double beta-lactam therapy is generally avoided, with rare exception. I do not know if there are any other factors that could be contributing to shock , such as a cardiogenic component that might be revealed with echocardiography, or if there could be adrenal insufficiency also at play. Megace (patient's home medication) can lead to some degree of adrenal suppression chronically and hypoadrenalism if withdrawn. If pt is not responding as would be expected, further investigation may be required. Esvin Baumann MD [facility] Infectious Diseases pager [phone]
--- NOTE | 2018-08-17 22:40 | PDOC PROGRESS REPORT ---
Subjective Progress Note for:: 08/17/18 Subjective:: This is a morbidly obese 58-year-old female who originally presented on August 10, 2018. She had been having progressive weakness with increased nausea. Her oral intake decreased significantly. This included her oral medications. This led to multiple falls and significantly increased weakness requiring a wheelchair. She would even have to crawl to get around on occasion. Intermittently she would exhibit dyspnea, discomfort in her legs and buttocks as well as the dorsum of each foot. They were hypersensitive. She has a history of pilonidal cyst and thought that she could be developing another but this proved to be negative. Initial evaluation revealed elevated serum creatinine and potassium as well as her blood glucose. She had a leukocytosis as well as decreased hemoglobin. She is currently intubated and sedated therefore she cannot contribute to the encounter today. 08/16 The patient has been stable. Electrolyte replacement has been the biggest clinical issue. He is not exhibited any abnormalities on telemetry due to her electrolyte abnormalities. A nasogastric tube has been placed so that we can resume her "oral "medications. In addition we can initiate nutrition. 08/17 the patient continues to exhibit a poor response to aggressive therapies including intravenous albumin, intravenous pressors, dual antibiotic therapy and ongoing mechanical ventilation. Reason For Visit: ACUTE RENAL FAILURE Physical Exam Vital Signs: Temp Pulse Resp BP Pulse Ox 98.8 F 75 24 H 129/59 H 95 08/17/18 18:00 08/17/18 18:00 08/17/18 18:00 08/17/18 18:00 08/17/18 18:00 Intake & Output 08/16/18 08/17/18 08/18/18 06:59 06:59 06:59 Intake Total 6753 2516 2593 Output Total 2483 6461 355 Balance 4868 1964 4811 Weight 146.1 kg 150.4 kg General appearance: PRESENT: morbidly obese, well-developed Head exam: PRESENT: atraumatic, normocephalic Eye exam: PRESENT: conjunctiva pale Ear exam: PRESENT: normal external ear exam Mouth exam: PRESENT: other - Unable to assess with endotracheal tube in place Teeth exam: PRESENT: other - Unable to assess with endotracheal tube in place Throat exam: PRESENT: other - Unable to assess with endotracheal tube in place Neck exam: ABSENT: carotid bruit, lymphadenopathy Respiratory exam: PRESENT: clear to auscultation karla, decreased breath sounds, symmetrical. ABSENT: wheezes Cardiovascular exam: PRESENT: RRR, +S1, +S2 Pulses: PRESENT: other - Diminished dorsalis pedis pulses GI/Abdominal exam: PRESENT: diminished bowel sounds, soft. ABSENT: distended, tenderness Rectal exam: PRESENT: deferred Gentrourinary exam: PRESENT: indwelling catheter Extremities exam: PRESENT: pedal edema Neurological exam: PRESENT: other - Patient is currently unresponsive. Skin exam: PRESENT: mottled - The toes in fact are starting to feel cool. The distal feet are beginning to appear mottled. No genet cyanosis is observed. Results Laboratory Results: 08/17/18 14:44 08/17/18 14:44 08/17/18 08/17/18 08/17/18 06:30 06:30 06:30 WBC 40.8 H* D RBC 3.03 L Hgb 9.4 L Hct 26.9 L MCV 89 MCH 30.9 MCHC 34.8 RDW 15.8 H Plt Count 80 L Carbonic Acid 0.86 L HCO3/H2CO3 Ratio 25:1 ABG pH 7.51 H ABG pCO2 28.7 L ABG pO2 70.4 L ABG HCO3 22.3 ABG O2 Saturation 95.8 ABG Base Excess -0.1 FiO2 50% Sodium 125.5 L Potassium 3.2 L Chloride 87 L Carbon Dioxide 24 Anion Gap 15 BUN 32 H Creatinine 1.64 H Est GFR ( Amer) 39 L Est GFR (Non-Af Amer) 32 L Glucose 106 Lactic Acid Calcium 6.0 L* Magnesium 1.4 L Albumin Urine Color Urine Appearance Urine pH Ur Specific [place] Urine Protein Urine Glucose (UA) Urine Ketones Urine Blood Urine Nitrite Ur Leukocyte Esterase Urine WBC (Auto) Urine RBC (Auto) 08/17/18 08/17/18 08/17/18 06:30 14:44 14:44 WBC 34.5 H* RBC 2.74 L Hgb 8.6 L Hct 24.6 L MCV 90 MCH 31.5 MCHC 35.2 RDW 15.0 H Plt Count 69 L Carbonic Acid HCO3/H2CO3 Ratio ABG pH ABG pCO2 ABG pO2 ABG HCO3 ABG O2 Saturation ABG Base Excess FiO2 Sodium 128.7 L Potassium 3.5 L Chloride 93 L Carbon Dioxide 20 L Anion Gap 16 BUN 30 H Creatinine 1.35 H Est GFR ( Amer) 48 L Est GFR (Non-Af Amer) 40 L Glucose 145 H Lactic Acid Calcium 5.7 L* Magnesium 1.6 Albumin 1.8 L Urine Color Urine Appearance Urine pH Ur Specific [place] Urine Protein Urine Glucose (UA) Urine Ketones Urine Blood Urine Nitrite Ur Leukocyte Esterase Urine WBC (Auto) Urine RBC (Auto) 08/17/18 08/17/18 08/17/18 14:44 14:44 14:44 WBC RBC Hgb Hct MCV MCH MCHC RDW Plt Count Carbonic Acid HCO3/H2CO3 Ratio ABG pH ABG pCO2 ABG pO2 ABG HCO3 ABG O2 Saturation ABG Base Excess FiO2 Sodium Potassium Chloride Carbon Dioxide Anion Gap BUN Creatinine Est GFR ( Amer) Est GFR (Non-Af Amer) Glucose Lactic Acid Cancelled 5.2 H Calcium Magnesium Albumin 1.7 L Urine Color Urine Appearance Urine pH Ur Specific [place] Urine Protein Urine Glucose (UA) Urine Ketones Urine Blood Urine Nitrite Ur Leukocyte Esterase Urine WBC (Auto) Urine RBC (Auto) 08/17/18 08/17/18 15:17 19:10 WBC RBC Hgb Hct MCV MCH MCHC RDW Plt Count Carbonic Acid HCO3/H2CO3 Ratio ABG pH ABG pCO2 ABG pO2 ABG HCO3 ABG O2 Saturation ABG Base Excess FiO2 Sodium Potassium Chloride Carbon Dioxide Anion Gap BUN Creatinine Est GFR ( Amer) Est GFR (Non-Af Amer) Glucose Lactic Acid 3.1 H Calcium Magnesium Albumin Urine Color ROLO Urine Appearance CLOUDY Urine pH 5.0 Ur Specific [place] 1.019 Urine Protein 30 H Urine Glucose (UA) 50 H Urine Ketones NEGATIVE Urine Blood LARGE H Urine Nitrite NEGATIVE Ur Leukocyte Esterase MODERATE H Urine WBC (Auto) 68 Urine RBC (Auto) 71 08/14/18 02:30 Tracheal Aspirate Gram Stain - Final 08/14/18 02:30 Tracheal Aspirate Sputum Culture - Final NO GROWTH 3 DAYS 08/11/18 04:05 NT-Pro-B Natriuret Pep 913 H Impressions: Hip X-Ray 08/10/18 12:23 IMPRESSION: NEGATIVE STUDY OF THE RIGHT AND LEFT HIPS AND PELVIS. NO RADIOGRAPHIC EVIDENCE OF ACUTE INJURY. Knee X-Ray 08/10/18 12:24 IMPRESSION: Nondisplaced fracture proximal left fibula. Chest X-Ray 08/16/18 09:32 IMPRESSION: Left lower lobe atelectasis or pneumonia. No significant change. KUB X-Ray 08/16/18 09:37 IMPRESSION: Nasogastric tube in the stomach. Head CT 08/17/18 00:00 IMPRESSION: No acute findings EVIDENCE OF ACUTE STROKE: NO. Assessment & Plan - Diagnosis (1) Sepsis due to Escherichia coli with acute renal failure Is this a current diagnosis for this admission?: Yes Plan: The patient meets sepsis criteria secondary to the E. coli/enterococcus faecalis cystitis. The patient continues to be stable. We are weaning IV pressors (Jt-Synephrine and vasopressin )as tolerated. Her blood pressure has been stable. Her white cell count is improved and decreased from 30.8 to 15. Because of her metabolic alkalosis her bicarbonate infusion has been decreased with a goal of tapering to off. 08/17 patient is still requiring full pressor support. I have initiated therapy with intravenous albumin. I also have substituted lactated Ringer's for the normal saline. Unfortunately she still requires full pressor support which is quite worrisome given the changes in her feet and toes. Hopefully by increasing the oncotic pressure will decrease third spacing of the fluid. I have also ordered a morning cortisol level. With her sepsis she could be having adrenal failure. She may benefit from intravenous steroid therapy. I have also changed her antibiotics back to meropenem and Unasyn since her white blood cell count jumped from 15,000-40,000 after changing her to ampicillin which was consistent with the microbiology reports of pond sensitivity with her enterococcus and E. coli. Her lack of improvement despite aggressive therapy is certainly worrisome. (2) Acute hypoxemic respiratory failure Is this a current diagnosis for this admission?: Yes Plan: The patient has been stable on the ventilator. We have initiated weaning trials. Her current settings are SIMV with a volume of 500, rate of 24 and 30% FiO2. She is on pressure support 10 and PEEP of 5. Chest x-ray for today is pending. 08/17 weaning attempt yesterday were unsuccessful. The patient became tachypneic and agitated. We are going to continue her current settings with SIMV mode, rate of 18, tidal volume of 500 with pressure support of 10 and PEEP of 5. We will continue to try and taper her FiO2. (3) DIANNE (acute kidney injury) Is this a current diagnosis for this admission?: Yes Plan: The patient likely has acute kidney injury due to ATN related to her sepsis. The patient's serum creatinine continues to improve. Serum creatinine is 1.56 today which is down from 2.03 yesterday. As noted above she continues on IV fluids, bicarbonate and intravenous pressor support. Serum chemistries will be obtained this afternoon mostly related to her multiple electrolyte abnormalities. Metabolic panel will be ordered for the morning as well. 08/17 her serum creatinine was increasing slightly. With the change in her volume replacement to lactated Ringer's we should see improvement in her metabolic acidosis as we are trying to avoid acute tubular necrosis. She is receiving aggressive fluid therapy today. Her urine is still extremely concentrated. Urinalysis still reveals protein, glucose and white blood cells. (4) Escherichia coli urinary tract infection Is this a current diagnosis for this admission?: Yes Plan: The final culture results were available for the E. coli. It was pond sensitive. The IV antibiotics were changed to ampicillin 500 mg every 6 hours for 5 additional days. This takes into account her decreased renal function. 08/17 as noted above it has changed her antibiotics back to meropenem and Unasyn. A possibility would be a methicillin-resistant organism that we have not been able to culture. After reassessing her tomorrow we may consider changing to vancomycin. Unfortunately this is a more nephrotoxic medication so she will need to be monitored closely. (5) Enterococcus faecalis infection Is this a current diagnosis for this admission?: Yes Plan: The final urine culture results also included greater than 100,000 colony- forming units of Enterococcus faecalis. Fortunately this is also sensitive to ampicillin (already in place for E. coli) and so her Unasyn was discontinued. She will receive 5 additional days of ampicillin 500 mg every 6 hours to complete her therapy. 08/17 as noted above the patient is back on Unasyn specifically to cover the enterococcus. There is no indication of vancomycin resistance. I will consider changing the Unasyn to vancomycin to cover the possibility of methicillin-resistant organism. Review of her urinalysis does show decreased white blood cells from the time of admission. (6) Metabolic alkalosis Is this a current diagnosis for this admission?: Yes Plan: With aggressive therapy her metabolic acidosis has been resolved and she now has metabolic alkalosis. I am decreasing her bicarbonate infusion and will repeat a blood gas this afternoon. We should be able to taper her bicarbonate infusion to off. 08/17 the patient likely has a mixed picture with a lactic acidosis present currently. I did change her IV fluid to lactated Ringer's and resumed the carbonate drip and this should help with the metabolic acidosis. We will continue to monitor her closely. (7) Diabetes mellitus type 2 in obese Is this a current diagnosis for this admission?: Yes Plan: Continue current point of care glucose testing every 6 hours with appropriate insulin dosing. Because her fingerstick glucoses have mostly been above 250 I will increase her Lantus to 22 units every 12 hours and continue the Humalog sliding scale. Her insulin dosing may need adjustment when her dextrose containing IV fluids are weaned off as well as to compensate for initiating nutrition. 08/17 we have initiated tube feedings with Glucerna. This should not significantly alter her serum glucose levels. We will continue her Lantus and sliding scale coverage. (8) Hyperesthesia Is this a current diagnosis for this admission?: Yes Plan: It is impossible to assess at this time due to her pharmacologically-induced state. I am going to discontinue the Lyrica and try and streamline her regimen to only the absolutely necessary medications. (9) Generalized weakness Is this a current diagnosis for this admission?: Yes Plan: Unable to assess. Physical therapy when appropriate. (10) Hypothyroidism Qualifiers: Hypothyroidism type: unspecified Qualified Code(s): E03.9 - Hypothyroidism , unspecified Is this a current diagnosis for this admission?: Yes Plan: We will continue her levothyroxine dose. At this point adrenal insufficiency is a bigger concern. Missing her levothyroxine for several days should not contribute to her current state. (11) Hypomagnesemia Is this a current diagnosis for this admission?: Yes Plan: We are continuing to replace her serum magnesium and calcium both of which continue to be low. Hopefully the use of Ringer's lactate will contribute to correction. (12) Hypokalemia Is this a current diagnosis for this admission?: Yes Plan: As noted previously the patient was hyperkalemic on admission but with aggressive therapy she has been significantly hypokalemic. She continues to get intravenous potassium supplementation. We will continue to monitor her electrolytes. (13) Hypocalcemia Is this a current diagnosis for this admission?: Yes Plan: Despite correction for her low albumin the patient is still requiring intravenous calcium replacement. Hopefully the lactated Ringer's will provide more stability with regard to normalizing her serum calcium. Correcting her serum magnesium will also help. - Time Time Spent with patient: 35 or more minutes Medications reviewed and adjusted accordingly: Yes
[2018-08-18] MEDS: AMPICILLIN SODIUM/SULBACTAM NA 3 GM in NORMAL SALINE 100 ML IV SCH ×2 (00:40→06:40)
[2018-08-18] MEDS: INSULIN LISPRO 100 UNIT/ML 3 ML VIAL SUBCUT PRN ×3 (00:51→12:58)
[2018-08-18] MEDS: RINGERS SOLUTION,LACTATED 1,000 ML IV PRN ×3 (01:26→10:50)
[2018-08-18] MEDS: DEXTROSE 5%-WATER 250 ML with NOREPINEPHRINE BITARTRATE 4 MG IV PRN ×4 (01:26→06:40)
[2018-08-18] MEDS: DEXTROSE 5%-WATER 250 ML with PHENYLEPHRINE HCL 40 MG IV PRN ×2 (06:42)
[2018-08-18] MEDS: LEVOTHYROXINE SODIUM 0.1 MG TABLET NG SCH (06:43)
[2018-08-18 06:47] LABS: ARTERIAL BLOOD BASE EXCESS 3.2 mmol/L; ARTERIAL BLOOD H2CO3 0.89 mmol/L (1.05-1.35); ARTERIAL BLOOD HCO3 25.3 mmol/L (20-24); ARTERIAL BLOOD O2 SATURATION 98.5 % (94-98); ARTERIAL BLOOD PCO2 29.5 mmHg (35-45); ARTERIAL BLOOD PH 7.55 (7.35-7.45); ARTERIAL BLOOD TOTAL CO2 26.2 mmol/L (21-25)
[2018-08-18 06:48] LABS: ARTERIAL BLOOD FIO2 70%
[2018-08-18 06:49] LABS: HEMATOCRIT 22.9 % (36.0-47.0); HEMOGLOBIN 8.1 g/dL (12.0-15.5); MEAN CORPUSCULAR HEMOGLOBIN 31.2 pg (27.0-33.4); MEAN CORPUSCULAR HGB CONC 35.2 g/dL (32.0-36.0); MEAN CORPUSCULAR VOLUME 89 fl (80-97); RED BLOOD COUNT 2.58 10^6/uL (3.72-5.28); WHITE BLOOD COUNT 23.6 10^3/uL (4.0-10.5)
[2018-08-18 07:02] LABS: ANION GAP 12 (5-19); BLOOD UREA NITROGEN 33 mg/dL (7-20); CARBON DIOXIDE 26 mmol/L (22-30); CHLORIDE 86 mmol/L (98-107); GLUCOSE 177 mg/dL (75-110); POTASSIUM 3.8 mmol/L (3.6-5.0); SODIUM 124.1 mmol/L (137-145)
[2018-08-18 07:11] LABS: CALCIUM 6.5 mg/dL (8.4-10.2)
[2018-08-18 07:39] LABS: PLATELET COUNT 68 10^3/uL (150-450)
[2018-08-18] MEDS: ALBUMIN HUMAN 12.5 GM/50 ML RTUINJ IV SCH ×2 (08:32→09:41)
--- NOTE | 2018-08-18 08:33 | RADIOLOGY REPORT (SQ) ---
EXAM DESCRIPTION: CHEST SINGLE VIEW COMPLETED DATE/TIME: 08/18/2018 8:19 am REASON FOR STUDY: ETT placement COMPARISON: 08/16/2018 NUMBER OF VIEWS: One view. TECHNIQUE: Single frontal radiographic image of the chest acquired. LIMITATIONS: None. FINDINGS: LUNGS AND PLEURA: Stable appearance. MEDIASTINUM AND HILAR STRUCTURES: Stable heart size and mediastinal structures. HEART AND VASCULAR STRUCTURES: Stable appearance. SUPPORT DEVICES: Appropriate location without change. BONES: No acute findings. OTHER: No other significant finding. IMPRESSION: STABLE APPEARANCE OF THE CHEST. SUPPORT DEVICES UNCHANGED. TECHNICAL DOCUMENTATION: JOB ID: [id number] [employer]- All Rights Reserved Reading location - IP/workstation name: [email or web address]
[2018-08-18] MEDS ORDERED: GENTAMICIN SULFATE 0 MG in DEXTROSE 5%-WATER 100 ML IV NR (09:15)
[2018-08-18] MEDS ORDERED: VANCOMYCIN HCL 0 MG in DEXTROSE 5%-WATER 250 ML IV NR (09:15)
[2018-08-18] MEDS ORDERED: NORMAL SALINE 250 ML IV PRN ×2 (09:25)
[2018-08-18] MEDS: DOCUSATE SODIUM 100 MG/10 ML UDC NG SCH (09:41)
[2018-08-18] MEDS: INSULIN GLARGINE,HUM.REC.ANLOG 300 UNIT/3 ML INSULN.PEN SUBCUT SCH (09:44)
[2018-08-18] MEDS: FAMOTIDINE 20 MG TABLET NG SCH (09:44)
[2018-08-18] MEDS: ENOXAPARIN SODIUM INJ 40 MG/0.4 ML DISP.SYRIN SUBCUT SCH (09:44)
[2018-08-18] MEDS ORDERED: HYDROCORTISONE SOD SUCCINATE INJ/PF 100 MG/2 ML SDV IV SCH (10:00)
[2018-08-18] MEDS ORDERED: RINGERS SOLUTION,LACTATED 500 ML IV ONE (10:00)
[2018-08-18] MEDS ORDERED: INSULIN REG, HUMAN 100 UNIT/ML 3 ML VIAL (PYX) SUBCUT PRN (11:17)
[2018-08-18] MEDS ORDERED: DEXTROSE 10%-WATER 1,000 ML IV PRN (11:17)
[2018-08-18] MEDS ORDERED: VANCOMYCIN HCL 1,500 MG in DEXTROSE 5%-WATER 250 ML IV SCH (12:00)
[2018-08-18] MEDS ORDERED: IMIPENEM/CILASTATIN SODIUM 500 MG in NORMAL SALINE 100 ML IV SCH (12:00)
--- NOTE | 2018-08-18 12:38 | PDOC PROGRESS REPORT ---
Subjective Progress Note for:: 08/18/18 Subjective:: This is a morbidly obese 58-year-old female who originally presented on August 10, 2018. She had been having progressive weakness with increased nausea. Her oral intake decreased significantly. This included her oral medications. This led to multiple falls and significantly increased weakness requiring a wheelchair. She would even have to crawl to get around on occasion. Intermittently she would exhibit dyspnea, discomfort in her legs and buttocks as well as the dorsum of each foot. They were hypersensitive. She has a history of pilonidal cyst and thought that she could be developing another but this proved to be negative. Initial evaluation revealed elevated serum creatinine and potassium as well as her blood glucose. She had a leukocytosis as well as decreased hemoglobin. She is currently intubated and sedated therefore she cannot contribute to the encounter today. 08/16 The patient has been stable. Electrolyte replacement has been the biggest clinical issue. He is not exhibited any abnormalities on telemetry due to her electrolyte abnormalities. A nasogastric tube has been placed so that we can resume her "oral "medications. In addition we can initiate nutrition. 08/17 the patient continues to exhibit a poor response to aggressive therapies including intravenous albumin, intravenous pressors, dual antibiotic therapy and ongoing mechanical ventilation. 08/18-despite ongoing maximal support the patient is a still not responding to treatment. She is still on triple pressor support. She is off of IV analgesia and sedation and is barely responsive. She is becoming more edematous. Her pallor is increasing as is the coolness of her feet and toes. Reason For Visit: ACUTE RENAL FAILURE Physical Exam Vital Signs: Temp Pulse Resp BP Pulse Ox 98.2 F 61 19 141/69 H 97 08/18/18 12:06 08/18/18 12:06 08/18/18 12:06 08/18/18 12:06 08/18/18 12:06 Intake & Output 08/17/18 08/18/18 08/19/18 06:59 06:59 06:59 Intake Total 3359 5598 1050 Output Total 8656 423 7407 Balance 2003 4688 -14 Weight 150.4 kg 155.8 kg General appearance: PRESENT: morbidly obese, other - Noticeable pallor. Unresponsive. Eye exam: PRESENT: conjunctiva pale, other - The pupillary response to light was significantly diminished. Pupils were symmetric.. ABSENT: scleral icterus Mouth exam: PRESENT: other - Endotracheal tube and orogastric tube in place Teeth exam: PRESENT: other - Orogastric tube and endotracheal tube in place Throat exam: PRESENT: other - Endotracheal and orogastric tube in place. Respiratory exam: PRESENT: rales - Bilaterally., other - Inspiration dependent on ventilator. Cardiovascular exam: PRESENT: RRR, +S1, +S2 Pulses: PRESENT: other - Diminished radial and dorsalis pedis pulses. Somewhat difficult to assess due to marked edema. Vascular exam: PRESENT: pallor GI/Abdominal exam: PRESENT: distended - Patient has a markedly protuberant abdomen. Based on daily visits it does not appear to be distended., hypoactive bowel sounds, soft. ABSENT: firm Rectal exam: PRESENT: deferred Gentrourinary exam: PRESENT: indwelling catheter Extremities exam: PRESENT: +2 edema - All extremities Musculoskeletal exam: PRESENT: other - Unable to assess Neurological exam: PRESENT: other - Unresponsive despite no IV sedation Psychiatric exam: PRESENT: other - Unresponsive Skin exam: PRESENT: mottled, pallor Results Laboratory Results: 08/18/18 06:35 08/18/18 06:35 08/17/18 08/17/18 08/17/18 14:44 14:44 14:44 WBC 34.5 H* RBC 2.74 L Hgb 8.6 L Hct 24.6 L MCV 90 MCH 31.5 MCHC 35.2 RDW 15.0 H Plt Count 69 L Carbonic Acid HCO3/H2CO3 Ratio ABG pH ABG pCO2 ABG pO2 ABG HCO3 ABG O2 Saturation ABG Base Excess FiO2 Sodium 128.7 L Potassium 3.5 L Chloride 93 L Carbon Dioxide 20 L Anion Gap 16 BUN 30 H Creatinine 1.35 H Est GFR ( Amer) 48 L Est GFR (Non-Af Amer) 40 L Glucose 145 H Lactic Acid Cancelled Calcium 5.7 L* Magnesium 1.6 Albumin Urine Color Urine Appearance Urine pH Ur Specific [place] Urine Protein Urine Glucose (UA) Urine Ketones Urine Blood Urine Nitrite Ur Leukocyte Esterase Urine WBC (Auto) Urine RBC (Auto) Blood Type Antibody Screen 08/17/18 08/17/18 08/17/18 14:44 14:44 15:17 WBC RBC Hgb Hct MCV MCH MCHC RDW Plt Count Carbonic Acid HCO3/H2CO3 Ratio ABG pH ABG pCO2 ABG pO2 ABG HCO3 ABG O2 Saturation ABG Base Excess FiO2 Sodium Potassium Chloride Carbon Dioxide Anion Gap BUN Creatinine Est GFR ( Amer) Est GFR (Non-Af Amer) Glucose Lactic Acid 5.2 H Calcium Magnesium Albumin 1.7 L Urine Color ROLO Urine Appearance CLOUDY Urine pH 5.0 Ur Specific [place] 1.019 Urine Protein 30 H Urine Glucose (UA) 50 H Urine Ketones NEGATIVE Urine Blood LARGE H Urine Nitrite NEGATIVE Ur Leukocyte Esterase MODERATE H Urine WBC (Auto) 68 Urine RBC (Auto) 71 Blood Type Antibody Screen 08/17/18 08/18/18 08/18/18 19:10 06:35 06:35 WBC RBC Hgb Hct MCV MCH MCHC RDW Plt Count Carbonic Acid 0.89 L HCO3/H2CO3 Ratio 28:1 ABG pH 7.55 H ABG pCO2 29.5 L ABG pO2 106.0 H ABG HCO3 25.3 H ABG O2 Saturation 98.5 H ABG Base Excess 3.2 FiO2 70% Sodium 124.1 L Potassium 3.8 Chloride 86 L Carbon Dioxide 26 Anion Gap 12 BUN 33 H Creatinine 1.49 H Est GFR ( Amer) 43 L Est GFR (Non-Af Amer) 36 L Glucose 177 H Lactic Acid 3.1 H Calcium 6.5 L* Magnesium 1.6 Albumin Urine Color Urine Appearance Urine pH Ur Specific [place] Urine Protein Urine Glucose (UA) Urine Ketones Urine Blood Urine Nitrite Ur Leukocyte Esterase Urine WBC (Auto) Urine RBC (Auto) Blood Type Antibody Screen 08/18/18 08/18/18 08/18/18 06:35 06:35 08:00 WBC 23.6 H RBC 2.58 L Hgb 8.1 L Hct 22.9 L MCV 89 MCH 31.2 MCHC 35.2 RDW 15.0 H Plt Count 68 L Carbonic Acid HCO3/H2CO3 Ratio ABG pH ABG pCO2 ABG pO2 ABG HCO3 ABG O2 Saturation ABG Base Excess FiO2 Sodium Potassium Chloride Carbon Dioxide Anion Gap BUN Creatinine Est GFR ( Amer) Est GFR (Non-Af Amer) Glucose Lactic Acid 2.2 H Calcium Magnesium Albumin 1.9 L Urine Color Urine Appearance Urine pH Ur Specific [place] Urine Protein Urine Glucose (UA) Urine Ketones Urine Blood Urine Nitrite Ur Leukocyte Esterase Urine WBC (Auto) Urine RBC (Auto) Blood Type Antibody Screen 10/26/18 10:00 WBC RBC Hgb Hct MCV MCH MCHC RDW Plt Count Carbonic Acid HCO3/H2CO3 Ratio ABG pH ABG pCO2 ABG pO2 ABG HCO3 ABG O2 Saturation ABG Base Excess FiO2 Sodium Potassium Chloride Carbon Dioxide Anion Gap BUN Creatinine Est GFR ( Amer) Est GFR (Non-Af Amer) Glucose Lactic Acid Calcium Magnesium Albumin Urine Color Urine Appearance Urine pH Ur Specific [place] Urine Protein Urine Glucose (UA) Urine Ketones Urine Blood Urine Nitrite Ur Leukocyte Esterase Urine WBC (Auto) Urine RBC (Auto) Blood Type O POSITIVE Antibody Screen NEGATIVE 08/14/18 02:30 Tracheal Aspirate Gram Stain - Final 08/14/18 02:30 Tracheal Aspirate Sputum Culture - Final NO GROWTH 3 DAYS 08/11/18 04:05 NT-Pro-B Natriuret Pep 913 H Impressions: Hip X-Ray 08/10/18 12:23 IMPRESSION: NEGATIVE STUDY OF THE RIGHT AND LEFT HIPS AND PELVIS. NO RADIOGRAPHIC EVIDENCE OF ACUTE INJURY. Knee X-Ray 08/10/18 12:24 IMPRESSION: Nondisplaced fracture proximal left fibula. KUB X-Ray 08/16/18 09:37 IMPRESSION: Nasogastric tube in the stomach. Head CT 08/17/18 00:00 IMPRESSION: No acute findings EVIDENCE OF ACUTE STROKE: NO. Chest X-Ray 08/18/18 08:01 IMPRESSION: STABLE APPEARANCE OF THE CHEST. SUPPORT DEVICES UNCHANGED. Assessment & Plan - Diagnosis (1) Sepsis due to Escherichia coli with acute renal failure Is this a current diagnosis for this admission?: Yes Plan: The patient meets sepsis criteria secondary to the E. coli/enterococcus faecalis cystitis. The patient continues to be stable. We are weaning IV pressors (Jt-Synephrine and vasopressin )as tolerated. Her blood pressure has been stable. Her white cell count is improved and decreased from 30.8 to 15. Because of her metabolic alkalosis her bicarbonate infusion has been decreased with a goal of tapering to off. 08/17 patient is still requiring full pressor support. I have initiated therapy with intravenous albumin. I also have substituted lactated Ringer's for the normal saline. Unfortunately she still requires full pressor support which is quite worrisome given the changes in her feet and toes. Hopefully by increasing the oncotic pressure will decrease third spacing of the fluid. I have also ordered a morning cortisol level. With her sepsis she could be having adrenal failure. She may benefit from intravenous steroid therapy. I have also changed her antibiotics back to meropenem and Unasyn since her white blood cell count jumped from 15,000-40,000 after changing her to ampicillin which was consistent with the microbiology reports of pond sensitivity with her enterococcus and E. coli. Her lack of improvement despite aggressive therapy is certainly worrisome. 08/18 I did order a consult from Dr. Michel. After his assessment we have decided to Expand her antibiotic coverage. We will changed to Primaxin, vancomycin and gentamicin with the pharmacy to dose appropriately. Her albumin is slightly increased with daily infusions of 25 g. In an effort to increase her oncotic pressure I will also transfuse 1 unit of packed red blood cells. Her hemoglobin currently is 8.1. Review of the literature suggests that keeping her hemoglobin at or above 9.0 would be beneficial. I have also initiated intravenous steroid therapy. The literature is mixed. Her serum cortisol level was in the normal range today and normally I would expect it to be extremely high under the circumstances. We will start at 100 mg of Solu-Cortef every 8 hours for today and see if the patient responds. She is not tolerating tube feeds. She has had residuals as high as 500. She has not had diarrhea. It is very difficult to assess her abdomen for distention. She does have decreased bowel sounds. We are going to initiate TPN but with her overwhelming sepsis we did not want to propagate any further infection. I will hold the tube feeds at this time since the family will be in this afternoon to discuss further aggressive measures versus comfort care. (2) Acute hypoxemic respiratory failure Is this a current diagnosis for this admission?: Yes Plan: The patient has been stable on the ventilator. We have initiated weaning trials. Her current settings are SIMV with a volume of 500, rate of 24 and 30% FiO2. She is on pressure support 10 and PEEP of 5. Chest x-ray for today is pending. 08/17 weaning attempt yesterday were unsuccessful. The patient became tachypneic and agitated. We are going to continue her current settings with SIMV mode, rate of 18, tidal volume of 500 with pressure support of 10 and PEEP of 5. We will continue to try and taper her FiO2. 08/18 Dr. Michel was able to consult on the patient. At this point she is not a candidate for weaning. There was a short trial on Tuesday but she absolutely did not tolerate it. With the fluid challenge to improve her blood pressure she is clearly fluid overloaded. She is likely developing ARDS. She was having production of markedly discolored sputum. We will broaden the antibiotic coverage as noted above. Please also see the pulmonology note. (3) DIANNE (acute kidney injury) Is this a current diagnosis for this admission?: Yes Plan: The patient likely has acute kidney injury due to ATN related to her sepsis. The patient's serum creatinine continues to improve. Serum creatinine is 1.56 today which is down from 2.03 yesterday. As noted above she continues on IV fluids, bicarbonate and intravenous pressor support. Serum chemistries will be obtained this afternoon mostly related to her multiple electrolyte abnormalities. Metabolic panel will be ordered for the morning as well. 08/17 her serum creatinine was increasing slightly. With the change in her volume replacement to lactated Ringer's we should see improvement in her metabolic acidosis as we are trying to avoid acute tubular necrosis. She is receiving aggressive fluid therapy today. Her urine is still extremely concentrated. Urinalysis still reveals protein, glucose and white blood cells. 08/18/2018 we have switched the IV saline to lactated Ringer's. This is helping to reduce her lactic acid. With the albumin and packed red blood cells we hope to improve oncotic pressure and perfusion of the kidneys. Her GFR is depressed but has been reasonably stable. Her urine is improved with the LR boluses yesterday and increased baseline continuous rate. (4) Escherichia coli urinary tract infection Is this a current diagnosis for this admission?: Yes Plan: The final culture results were available for the E. coli. It was pond sensitive. The IV antibiotics were changed to ampicillin 500 mg every 6 hours for 5 additional days. This takes into account her decreased renal function. 08/17 as noted above it has changed her antibiotics back to meropenem and Unasyn. A possibility would be a methicillin-resistant organism that we have not been able to culture. After reassessing her tomorrow we may consider changing to vancomycin. Unfortunately this is a more nephrotoxic medication so she will need to be monitored closely. 08/18/2018 as noted above no bacteria was seen on the urinalysis but there was significantly increased white blood cells (improved from admission) and marked hematuria. Despite pansensitive E. coli cultured initially the antibiotics have been broadened as noted above. (5) Enterococcus faecalis infection Is this a current diagnosis for this admission?: Yes Plan: The final urine culture results also included greater than 100,000 colony- forming units of Enterococcus faecalis. Fortunately this is also sensitive to ampicillin (already in place for E. coli) and so her Unasyn was discontinued. She will receive 5 additional days of ampicillin 500 mg every 6 hours to complete her therapy. 08/17 as noted above the patient is back on Unasyn specifically to cover the enterococcus. There is no indication of vancomycin resistance. I will consider changing the Unasyn to vancomycin to cover the possibility of methicillin-resistant organism. Review of her urinalysis does show decreased white blood cells from the time of admission. 08/18/2018-once again the initial urine culture grew a fairly sensitive Enterococcus faecalis. Despite that the change to ampicillin resulted in a high white blood cell count again. As noted above after discussion with Dr. Michel we have changed her antibiotic therapy. (6) Metabolic alkalosis Is this a current diagnosis for this admission?: Yes Plan: With aggressive therapy her metabolic acidosis has been resolved and she now has metabolic alkalosis. I am decreasing her bicarbonate infusion and will repeat a blood gas this afternoon. We should be able to taper her bicarbonate infusion to off. 08/17 the patient likely has a mixed picture with a lactic acidosis present currently. I did change her IV fluid to lactated Ringer's and resumed the carbonate drip and this should help with the metabolic acidosis. We will continue to monitor her closely. 08/18/2018 (7) Diabetes mellitus type 2 in obese Is this a current diagnosis for this admission?: Yes Plan: Continue current point of care glucose testing every 6 hours with appropriate insulin dosing. Because her fingerstick glucoses have mostly been above 250 I will increase her Lantus to 22 units every 12 hours and continue the Humalog sliding scale. Her insulin dosing may need adjustment when her dextrose containing IV fluids are weaned off as well as to compensate for initiating nutrition. 08/17 we have initiated tube feedings with Glucerna. This should not significantly alter her serum glucose levels. We will continue her Lantus and sliding scale coverage. 08/18/2018 she is not tolerating the tube feeds and these are currently on hold. We will continue the sliding scale insulin. (8) Hyperesthesia Is this a current diagnosis for this admission?: Yes Plan: 08/17/2018 it is impossible to assess at this time due to her pharmacologically -induced state. I am going to discontinue the Lyrica and try and streamline her regimen to only the absolutely necessary medications. 08/18/2018-the patient barely responds to painful stimuli with her fingers. No improvement from yesterday. Unable to truly assess hyperesthesia. (9) Generalized weakness Is this a current diagnosis for this admission?: Yes Plan: 08/17/2018 unable to assess. Physical therapy when appropriate. 08/18/2018-as above (10) Hypothyroidism Qualifiers: Hypothyroidism type: unspecified Qualified Code(s): E03.9 - Hypothyroidism , unspecified Is this a current diagnosis for this admission?: Yes Plan: 08/17/2018 we will continue her levothyroxine dose. At this point adrenal insufficiency is a bigger concern. Missing her levothyroxine for several days should not contribute to her current state. 08/18/2018-we will continue her current levothyroxine dose. Steroids added as above. (11) Hypomagnesemia Is this a current diagnosis for this admission?: Yes Plan: 08/17/2018 we are continuing to replace her serum magnesium and calcium both of which continue to be low. Hopefully the use of Ringer's lactate will contribute to correction. 08/18/2018-her magnesium is at the lower limit of normal. She does not require magnesium today. Her calcium also corrected into the low normal range. We will continue the lactated Ringer's and monitor her electrolytes and supplement if needed. (12) Hypokalemia Is this a current diagnosis for this admission?: Yes Plan: 08/17/2018 As noted previously the patient was hyperkalemic on admission but with aggressive therapy she has been significantly hypokalemic. She continues to get intravenous potassium supplementation. We will continue to monitor her electrolytes. 08/18/2018 with a combination of IV supplementation yesterday and the change to lactated Ringer's the patient's potassium is in the normal range. We will continue her current regimen. We will monitor her potassium and supplement if necessary. (13) Hypocalcemia Is this a current diagnosis for this admission?: Yes Plan: 08/17/2018 despite correction for her low albumin the patient is still requiring intravenous calcium replacement. Hopefully the lactated Ringer's will provide more stability with regard to normalizing her serum calcium. Correcting her serum magnesium will also help. 08/18/2018 as noted above with different intravenous fluid and yesterday supplementation the patient's serum calcium corrects into the normal range. Continue to monitor and supplement if needed. - Time Time Spent with patient: 35 or more minutes Medications reviewed and adjusted accordingly: Yes - Plan Summary Plan Summary: I did talk to the patient's mother Gabriella regarding consent for the transfusion but also the patient's overall status and prognosis. We discussed the gravity of her situation and the unlikelihood that she will recover from this. The family will be in this afternoon and we will have further discussions.
[2018-08-18] MEDS ORDERED: GENTAMICIN SULFATE 175 MG in DEXTROSE 5%-WATER 100 ML IV SCH (14:00)
[2018-08-18] MEDS ORDERED: MORPHINE SULFATE 10 MG/ML INJ IV ONE (16:10)
[2018-08-18] MEDS ORDERED: LORAZEPAM INJ 2 MG/1 ML VIAL IV ONE (16:10)
[2018-08-18] MEDS ORDERED: AMINO ACIDS 5%/D25W 1,000 ML IV PRN (18:00)
[2018-08-18 18:18] VITALS: BP 72/26
--- NOTE | 2018-08-18 18:22 | XCELERA REPORT ---
[address] [address] Transthoracic Echocardiogram Report Name: ROSA ISELA GRAVES Age: 58 yrs Gender: Female : 1960 Patient Status: Inpatient Patient Location: ICU^608^A Study Date: 08/18/2018 10:07 AM Height: 64 in Weight: 343 lb BSA: 2.5 m2 Procedure: A complete two-dimensional transthoracic echocardiogram was performed (2D, M-mode, spectral and color flow Doppler). The study was technically adequate with some images being suboptimal in quality. Reason For Study: cardiomyopathy Ordering Physician: JOSÉ MADRID Performed By: Jaye Collazo Interpretation Summary The left ventricular ejection fraction is normal. Doppler measurements suggest pseudonormalized left ventricular relaxation, which is associated with grade II/IV or mild to moderate diastolic dysfunction There is borderline concentric left ventricular hypertrophy. The left ventricle is grossly normal size. Wall motion cannot be accurately commented on, but no definite regional wall motion abnormalities noted. The right ventricular systolic function is normal. The right ventricle is borderline dilated. The right atrium is normal in size The left atrium is mildly dilated. There is a trace amount of mitral regurgitation There is no mitral valve stenosis. No aortic regurgitation is present. There is no aortic valve stenosis There is a trace to mild amount of tricuspid regurgitation There is mild to moderate pulmonary hypertension by echo Right ventricular systolic pressure is estimated to be elevated at 40-50mmHg. The aortic root is not well visualized but is probably normal size. The inferior vena cava appeared normal and decreased < 50% with respiration (RAP 10-15 mmHg) There is no pericardial effusion. MMode/2D Measurements & Calculations RVDd: 2.7 cm LVIDd: 5.1 cm FS: 34.5 % Ao root diam: 2.8 cm IVSd: 0.91 cm LVIDs: 3.3 cm EDV(Teich): 121.8 ml Ao root area: 6.1 cm2 LVPWd: 0.88 cm ESV(Teich): 44.7 ml LA dimension: 3.4 cm EF(Teich): 63.3 % Doppler Measurements & Calculations MV E max pavan: MV P1/2t max pavan: Ao V2 max: LV V1 max P.3 cm/sec 95.8 cm/sec 163.6 cm/sec 8.1 mmHg MV A max pavan: MV P1/2t: 83.8 msec Ao max PG: LV V1 max: 96.3 cm/sec MVA(P1/2t): 2.6 cm2 10.7 mmHg 142.2 cm/sec MV E/A: 1.0 MV dec slope: 334.7 cm/sec2 MV dec time: 0.27 sec PA V2 max: TR max pavan: MV P1/2t-pr_phl: 124.9 cm/sec 287.8 cm/sec 83.8 msec PA max P.2 mmHgTR max P.1 mmHg Left Ventricle The left ventricle is grossly normal size. There is borderline concentric left ventricular hypertrophy. The left ventricular ejection fraction is normal. Doppler measurements suggest pseudonormalized left ventricular relaxation, which is associated with grade II/IV or mild to moderate diastolic dysfunction. Wall motion cannot be accurately commented on, but no definite regional wall motion abnormalities noted. Right Ventricle The right ventricle is borderline dilated. There is normal right ventricular wall thickness. The right ventricular systolic function is normal. Atria The right atrium is normal in size. The left atrium is mildly dilated. Interarterial septum not well visualized and not well dopplered. Cannot comment on ASD/PFO presence. Mitral Valve The mitral valve is grossly normal. There is no mitral valve stenosis. There is a trace amount of mitral regurgitation. Aortic Valve The aortic valve is not well visualized secondary to technical limitations. There is no aortic valve stenosis. No aortic regurgitation is present. Tricuspid Valve The tricuspid valve is not well visualized, but is grossly normal. There is no tricuspid stenosis. There is a trace to mild amount of tricuspid regurgitation. There is mild to moderate pulmonary hypertension by echo. Right ventricular systolic pressure is estimated to be elevated at 40-50mmHg. Pulmonic Valve The pulmonic valve is not well visualized. Great Vessels The aortic root is not well visualized but is probably normal size. The inferior vena cava appeared normal and decreased < 50% with respiration (RAP 10-15 mmHg). Effusions There is no pericardial effusion. : JOSÉ MADRID > Javier Dolan
--- NOTE | 2018-08-18 22:00 | Death Summary ---
Summary Date : 08/18/18 Time of :: 17:35 Autopsy: No Resuscitation Status: Comfort Measures Only Consulting Provider: Dr. Michel (Pulm). Dr. Baumann (ID) - Final Diagnosis (1) Sepsis due to Escherichia coli with acute renal failure Is this a current diagnosis for this admission?: Yes (2) Acute hypoxemic respiratory failure Is this a current diagnosis for this admission?: Yes (3) DIANNE (acute kidney injury) Is this a current diagnosis for this admission?: Yes (4) Escherichia coli urinary tract infection Is this a current diagnosis for this admission?: Yes (5) Enterococcus faecalis infection Is this a current diagnosis for this admission?: Yes (6) Metabolic alkalosis Is this a current diagnosis for this admission?: Yes (7) Diabetes mellitus type 2 in obese Is this a current diagnosis for this admission?: Yes (8) Hyperesthesia Is this a current diagnosis for this admission?: Yes (9) Generalized weakness Is this a current diagnosis for this admission?: Yes (10) Hypothyroidism Is this a current diagnosis for this admission?: Yes (11) Hypomagnesemia Is this a current diagnosis for this admission?: Yes (12) Hypokalemia Is this a current diagnosis for this admission?: Yes (13) Hypocalcemia Is this a current diagnosis for this admission?: Yes Hospital Course:: 58-year-old female had a history of diabetes, hypothyroidism and morbid obesity. She presented to [facility] on August 10. She was initially diagnosed with cystitis involving E. coli and Enterococcus faecalis. The patient progressed quickly into full-blown sepsis with septic shock. Infectious disease-she was placed on broad-spectrum antibiotics. When the culture results were available it revealed pansensitive organisms. Her antibiotic therapy was weaned to IV ampicillin. Her white blood cell count had been improving and dropped from 40,000-15,000. When the Unasyn and meropenem were discontinued and ampicillin initiated her white blood cell count jumped back to 39,000. I returned to meropenem and Unasyn and her white count began to slowly improve. There were still no positive culture results indicating a resistant bacteria but the timing of the spike in her white blood cells made for a strong case to return to broad-spectrum antibiotics. After reviewing the case with Dr. Michel her antibiotic spectrum was widened. Vancomycin, gentamicin and Primaxin were instituted. Because of her kidney injury pharmacy was dosing the vancomycin and gentamicin. Shock-the patient required triple pressor therapy just to maintain a borderline blood pressure. This was despite aggressive fluid resuscitation. I had changed her main IV fluid to lactated Ringer's and this was helping with her electrolyte abnormalities and reduced her lactic acid levels. Unfortunately the pressors were beginning to cause mottling at the toes and cool fingers. Because of the volume resuscitation the patient was clearly retaining fluid. With likely adrenal insufficiency from her acute illness I did institute Solu- Cortef therapy today as well. She had been getting IV albumin and she received a unit of packed red blood cells in an effort to improve her oncotic pressure. Unfortunately none of these interventions had significant therapeutic benefit. Please see discussion below. Electrolyte abnormalities-the patient required multiple doses over several days of magnesium sulfate, calcium gluconate and potassium chloride. As noted above between supplementation and changing her fluid to lactated Ringer's her electrolytes in fact had normalized today. Acute hypoxic respiratory failure-the patient remains on SIMV. There were really no significant changes in her settings except to decrease her rate to 16 to help with her respiratory alkalosis. Unfortunately this did not impart a significant benefit. She briefly tried weaning trials which failed quickly. We did place an orogastric tube several days ago to institute tube feedings with Glucerna. Unfortunately the patient had high residuals. Because of her low blood pressure we could not elevate the head of the bed. We are going to institute TPN today but the family decided not to prolong the patient's current status with no realistic hope of recovery. This morning I had called the patient's mother for consent to transfuse 1 unit of packed red blood cells. I did obtain consent. I was able to review the overall prognosis with the patient's mother. She appreciated the severity of the illness and poor prognosis. She stated to me that there is a good possibility that, based on my assessment (with input from Dr. Michel), the family was leaning towards changing the treatment plan to comfort only. The plan was for the family to be here in the afternoon for further discussion. Later in the day the family did call the attending nurse and informed her that the family had decided to move towards comfort care only. The nurse called me to inform me. I told her not to change anything until family had a chance to visit with the patient. I was notified when the family arrived. I went to the ICU and met with the patient's mother, sister, brother and [id number]. Again I discussed in significant detail the efforts up to this point and the patient's lack of response. As indicated by discussions on the phone earlier the family agreed to change the patient to comfort only. I did describe the method of transition to this new level of care. The family had a chance to ask questions. When they were satisfied I initiated the orders to transition the patient. The patient was given a dose of intravenous morphine and intravenous lorazepam prior to disconnecting the ventilator and extubating the patient. Her arterial and central lines were left in place for IV access. All medications were otherwise discontinued and the equipment was removed from the room to provide a more peaceful atmosphere for the family. The family was in attendance and after discontinuing all of the aggressive therapy the patient slowly declined and at 5:30 PM today. The family was present at the bedside. I completed the certificate at that time. The family was appreciative of our end-of-life care.
[2018-08-21] MEDS ORDERED: FAT EMULSIONS 250 ML IV SCH (10:00)
--- NOTE | 2018-08-22 10:55 | CONSULTATION REPORT E ---
Consultation Report NAME: ROSA ISELA GRAVES : 1960 AGE: 58Y DATE: 08/18/2018 ROOM: 608 A TO: YANCY GOFF M.D. FROM: RONIT KURTZ M.D. Requesting Physician REASON FOR CONSULTATION: I was consulted this morning, 8:45, because the patient was not doing well. The patient was on 3 vasopressors, namely IV Levophed, IV Jt-Synephrine, and IV vasopressin. The patient has been in septic shock for the last few days. The patient was started on Unasyn and changed to meropenem. The patient has scanty endotracheal tube secretions. Treated for severe urinary tract infection. The patient was admitted on 08/10/2018 because she was not feeling well, feeling nauseated, and complaining about leg pains and complaining about some shortness of breath. Denies any dysuria. Urinalysis showed marked leukocyte esterase. PAST MEDICAL HISTORY: 1. History of hypertension. 2. History of seizures. 3. Diabetes. 4. Hypothyroidism. Denies any history of heart attack, asthma. No stroke. Denies any history of hepatitis, hiatal hernia, or ulcers. ALLERGIES: The patient is allergic to OXYCODONE and ACTOS. MEDICATIONS: In the hospital the patient is receivin. Tylenol. 2. Maalox. 3. Albuterol inhaler. 4. Human albumin in amino acid. 5. Unasyn. 6. Levophed. 7. Vasopressin IV. 8. Jt-Synephrine. 9. Lovenox for DVT prophylaxis. 10. Pepcid. 11. Glucose. 12. Synthroid. 13. Ativan. 14. Meropenem. 16. Zofran. 17. Lyrica. PHYSICAL EXAMINATION: HEENT: Eyes no jaundice. Face appeared to be pale or marked pallor. Orotracheal tube is in place. No nose bleeding or nasal discharge or ear discharge. CHEST AND LUNGS: No wheezing, no rhonchi, no coarse crackles. CARDIOVASCULAR: S1, S2 distinct. Normal rate and regular rhythm. ABDOMEN: Flabby, hypoactive bowel sounds, soft, but nondistended. EXTREMITIES: No joint swelling, but there is bipedal edema. No apparent cellulitis. LABORATORY DATA: CBC done today showed a white count of 23.6 from 34,500 yesterday and 40,800 the other day. Hemoglobin is 8.1, hematocrit is 22.9, platelet count is 68,000 this morning and it was 80,000 yesterday. Blood gas this morning at 6:55 showed pH of 7.55, pCO2 of 29.5, pO2 of 106, bicarb is 25.3, saturation 98.5. Chemistry done today showed sodium 134, potassium is 3.8, chloride is 86, CO2 is 26, BUN 53, creatinine is 1.49, glucose is 137, calcium is 6.5, and magnesium is 1.6. Lactate is 2.2. IMAGING STUDIES: Chest x-ray showed mild cardiomegaly and no apparent pleural effusion, no pneumothorax. No new pulmonary infiltrate based on the chest CT scan done today. ASSESSMENT: 1. Acute respiratory failure requiring invasive mechanical ventilation. 2. Septic shock due to severe urinary tract infection, requiring 3 vasopressors. 3. Coma - possibly acute encephalopathy 3. Pneumonia - concomitant, possible. PLAN/RECOMMENDATION: 1. Recommend broaden antibiotic coverage to Primaxin 500 mg IV piggyback q.6 hours, gentamicin IV piggyback 80 mg IV piggyback pharmacy to follow levels, and vancomycin 1 gram IV piggyback. Discussed the treatment plan with the hospitalist. Recommend discontinue the meropenem and Unasyn. 2. Send sputum for sputum culture. 3. Discussed patient's condition with the hospitalist, Dr. Escobedo this morning. Recommend family discussion for possible end-of-life care. DICTATING PHYSICIAN: YANCY GOFF MD,EMILIE,MPH [id number] PHY#: [id number] ID: [id number] JOB#: [id number] ACCT: [id number] cc:YANCY GOFF M.D. > SHANAE
== END 2018-08-18 18:45 | DRG 870 ==
LOC: ER 11:55 → EH 14:04 → 3N 16:31 → ICU 08-13 08:15
PROVIDERS: ADMIT Emergency Medicine; ATTEND Emergency Medicine
PROC: 5A09357 Assistance with Respiratory Ventilation, Less than 24 Consecutive Hours, Continuous Positive Airway Pressure (ICD-10-PCS; 2018-08-13)
PROC: 05H533Z Insertion of Infusion Device into Right Subclavian Vein, Percutaneous Approach (ICD-10-PCS; 2018-08-13)
PROC: 5A1955Z Respiratory Ventilation, Greater than 96 Consecutive Hours (ICD-10-PCS; principal; 2018-08-14)
PROC: 0BH17EZ Insertion of Endotracheal Airway into Trachea, Via Natural or Artificial Opening (ICD-10-PCS; 2018-08-14)
PROC: 03HY32Z Insertion of Monitoring Device into Upper Artery, Percutaneous Approach (ICD-10-PCS; 2018-08-14)
PROC: 4A133B1 Monitoring of Arterial Pressure, Peripheral, Percutaneous Approach (ICD-10-PCS; 2018-08-14)
PROC: 4A133J1 Monitoring of Arterial Pulse, Peripheral, Percutaneous Approach (ICD-10-PCS; 2018-08-14)
PROC: B34JZZZ Ultrasonography of Left Upper Extremity Arteries (ICD-10-PCS; 2018-08-14)
PROC: 0D9670Z Drainage of Stomach with Drainage Device, Via Natural or Artificial Opening (ICD-10-PCS; 2018-08-16)
PROC: 30233N1 Transfusion of Nonautologous Red Blood Cells into Peripheral Vein, Percutaneous Approach (ICD-10-PCS; 2018-08-18)
DX: A41.51 Sepsis due to Escherichia coli [E. coli] (principal); L89.153 Pressure ulcer of sacral region, stage 3; J96.01 Acute respiratory failure with hypoxia; R65.21 Severe sepsis with septic shock; J18.9 Pneumonia, unspecified organism; N17.0 Acute kidney failure with tubular necrosis; E87.3 Alkalosis; N30.90 Cystitis, unspecified without hematuria; Z78.1 Physical restraint status; E11.40 Type 2 diabetes mellitus with diabetic neuropathy, unspecified; B95.2 Enterococcus as the cause of diseases classified elsewhere; R20.3 Hyperesthesia; E03.9 Hypothyroidism, unspecified; E83.42 Hypomagnesemia; R53.1 Weakness; E87.6 Hypokalemia; E83.51 Hypocalcemia; E66.01 Morbid (severe) obesity due to excess calories; I10 Essential (primary) hypertension; S82.832A Other fracture of upper and lower end of left fibula, initial encounter for closed fracture; W01.0XXA Fall on same level from slipping, tripping and stumbling without subsequent striking against object, initial encounter; E87.5 Hyperkalemia; E86.0 Dehydration; Z91.14 Patient's other noncompliance with medication regimen; Z88.6 Allergy status to analgesic agent; Z88.8 Allergy status to other drugs, medicaments and biological substances; Z79.899 Other long term (current) drug therapy; Z90.49 Acquired absence of other specified parts of digestive tract; Z90.10 Acquired absence of unspecified breast and nipple; Z95.0 Presence of cardiac pacemaker; Z98.49 Cataract extraction status, unspecified eye; Z83.3 Family history of diabetes mellitus; Z82.49 Family history of ischemic heart disease and other diseases of the circulatory system; Z83.49 Family history of other endocrine, nutritional and metabolic diseases
CPT/HCPCS: 31500; 36415; 36430; 70450; 71045; 71046; 73522; 74018; 80048; 80053; 80061; 81001; 82040; 82533; 82803; 82962; 83036; 83605; 83690; 83735; 83880; 84100; 84439; 84443; 84481; 85025; 85027; 85610; 85730; 86850; 86900; 86901; 86920; 87040; 87070; 87077; 87086; 87088; 87186; 87205; 93005; 93010; 93306; 94002; 94003; 94660; 96361; 96374; 99285; C1751; C1752; J0290; J0295; J0610; J0690; J0743; J1335; J1650; J1720; J1815; J2185; J2250; J2270; J2370; J3010; J3370; J3475; J3480; J3490; J7030; J7050; J7060; J7120; P9016; P9047; S0119; S0164